=== PATIENT | female | born 1945 | race Caucasian/White ===

== ENCOUNTER → 2018-09-30 12:29 | Outpatient (CLI) | payer MEDICARE, OTHER, SELFPAY | PROVIDERS: PCP Family Medicine; Visit Provider Internal Medicine | DX: I10 Essential (primary) hypertension (principal); R06.09 Other forms of dyspnea; R94.31 Abnormal electrocardiogram [ECG] [EKG]; Z95.0 Presence of cardiac pacemaker | CPT/HCPCS: 93306 ==

== ENCOUNTER → 2019-10-18 09:46 | Outpatient (CLI) | payer MEDICARE, OTHER, SELFPAY ==
--- NOTE | 2019-10-18 09:48 | CA_ITS ---
APPROVED REPORT EXAM: Comprehensive 2D, Doppler, and color-flow Echocardiogram Ginning Operator: Trinidad Barraza RVT Ht: 5 ft 4 in Wt: 141lbs BSA: 1.69 BP: 130/67 mmHg Indications: SOA,HTN,HLD,PACER,A-FIB 2D Dimensions LVOT 1.87 cm (M/F) 1.5-2.5 M-Mode Dimensions RVDd 2.83 cm (0.9-2.6) LVDd 4.57 cm (3.5-5.7) LVDs 2.90 cm (3.5-5.7) IVSd 0.93 cm (0.6-1.1) PWd 0.74 cm (0.6-1.1) EF (Teich) 66.40% FS 36.50% EDV (Teich) 95.90 mL ESV (Teich) 32.20 mL LV Diastology E/A Ratio 1.07 Mitral Valve MV A Velocity 35.00 (40-130 cm/s) Left Ventricle Left atrium is mildly enlarged, left ventricle is normal size, mild concentric left ventricular hypertrophy, visually estimated ejection fraction approximately 40%, there is abnormal septal motion. Diastolic parameters are inconclusive. Right Ventricle Right atrium and right ventricular mildly enlarged with normal contractility. There is a pacemaker lead seen right atrium and right ventricle. Aortic Valve Aortic valve is thickened and calcified leaflet continue to display good mobility, there is no aortic stenosis, there is mild aortic insufficiency. Mitral Valve Mitral valve leaflets are minimally thickened, there is no mitral stenosis, there is mild mitral regurgitation. Tricuspid Valve Tricuspid valve is grossly normal, there is mild tricuspid regurgitation. Pulmonic Valve Pulmonic valve is poorly visualized. Great Vessels Aortic root is normal size. No significant pericardial effusion noted. Conclusion 1. Biatrial enlargement, normal left ventricular size, mild concentric left ventricular hypertrophy, visually estimated ejection fraction of 40%, there is abnormal septal motion, diastolic parameters are inconclusive. 2. Mildly enlarged right ventricle with normal contractility. 3. Thickened and calcified aortic valve without aortic stenosis, there is mild aortic insufficiency. 4. Mild mitral and tricuspid regurgitation. 5. No significant pericardial effusion noted. Electronically signed by : Braden Baird, 10/18/2019 20:15:26
== END ==
PROVIDERS: PCP Family Medicine; Visit Provider Internal Medicine
DX: E78.5 Hyperlipidemia, unspecified (principal); I10 Essential (primary) hypertension; I48.91 Unspecified atrial fibrillation; R06.00 Dyspnea, unspecified; R42 Dizziness and giddiness; Z95.0 Presence of cardiac pacemaker
CPT/HCPCS: 93306

== ENCOUNTER → 2019-11-15 08:10 | Outpatient (CLI) | payer MEDICARE, OTHER, SELFPAY ==
--- NOTE | 2019-11-15 08:11 | CA_ITS ---
APPROVED REPORT EXAM: Limited 2D Echocardiogram Senior Science Consultant: Trinidad Barraza RVT Ht: 5 ft 4 in Wt: 140lbs BSA: 1.68 BP: 128/56 mmHg Indications: EF check EF of 40% on 10/18/19 Pt had pacer changed to a bi-venticular pacer 2 weeks ago. Hypertension,CM, HLD 2D Dimensions LVOT 2.35 cm (M/F) 1.5-2.5 M-Mode Dimensions RVDd 0.76 cm (0.9-2.6) LVDd 4.55 cm (3.5-5.7) LVDs 3.37 cm (3.5-5.7) IVSd 0.79 cm (0.6-1.1) PWd 0.84 cm (0.6-1.1) EF (Teich) 51.10% FS 25.90% EDV (Teich) 94.90 mL ESV (Teich) 46.40 mL Left Ventricle Left atrium is mildly enlarged, left ventricle is normal size, mild concentric left ventricular hypertrophy, visually estimated ejection fraction approximately 50%, with no regional wall motion abnormality. There is abnormal septal motion. Right Ventricle Right atrium right ventricular mildly enlarged with normal contractility there is a pacemaker lead seen right atrium and right ventricle. Aortic Valve Aortic valve is minimally thickened and fibrosed. Mitral Valve Mitral valve is grossly normal. Tricuspid Valve Tricuspid valve is grossly normal. Pulmonic Valve Pulmonic valve is poorly visualized. Great Vessels Aortic root is normal size. Pericardium No significant pericardial effusion noted. Conclusion 1. Limited 2D echocardiogram was performed. 2. Normal left ventricular size, visually estimated ejection fraction approximately 50% with abnormal septal motion, there is mild concentric left ventricular hypertrophy seen. 3. Mildly enlarged right ventricle with normal contractility. 4. No significant pericardial effusion noted. Electronically signed by : Braden Baird, 11/16/2019 06:04:25
== END ==
PROVIDERS: PCP Family Medicine; Visit Provider Internal Medicine
DX: R07.9 Chest pain, unspecified (principal)
CPT/HCPCS: 93308

== ENCOUNTER → 2020-02-13 10:33 | Outpatient (CLI) | payer MEDICARE, OTHER, SELFPAY ==
--- NOTE | 2020-02-13 10:34 | XR_ITS ---
PROCEDURE: XR CHEST 2V CLINICAL HISTORY: chest pain Heart disease, chest pain COMPARISON: No exams were available for comparison FINDINGS: The cardiomediastinal silhouette and pulmonary vascularity are within normal limits. Biventricular and right atrial pacemaker leads are present. Minimal atelectatic changes present in the left lung base. Levoscoliosis of the thoracolumbar spine IMPRESSION: Pacemaker present. Minimal left basilar atelectasis Dictated by: Amando Gutierrez MD 02/13/2020 11:50 Electronically signed by Amando Gutierrez MD in [facility] 02/13/2020 11:50
--- NOTE | 2020-02-13 10:34 | CA_ITS ---
APPROVED REPORT EXAM: Comprehensive 2D, Doppler, and color-flow Echocardiogram Tobacco Baler: Cami Paulino CRT Ht: 5 ft 4 in Wt: 140lbs BSA: 1.68 BP: 132/64 mmHg Indications: HTN, HLD, CM, EF CHECK and PACER LEAD CHECK M-Mode Dimensions RVDd 2.99 cm (0.9-2.6) LVDd 4.40 cm (3.5-5.7) LVDs 3.56 cm (3.5-5.7) IVSd 1.62 cm (0.6-1.1) PWd 0.82 cm (0.6-1.1) EF (Teich) 39.60% FS 19.10% EDV (Teich) 87.70 mL ESV (Teich) 53.00 mL Left Ventricle Left atrium is mildly enlarged, left ventricle is normal size, mild concentric left ventricular hypertrophy, visually estimated ejection fraction 55% with no regional wall motion abnormality. Diastolic parameters are inconclusive. Right Ventricle Right atrium and right ventricle mildly enlarged with normal contractility, pacemaker lead seen right atrium and right ventricle. Aortic Valve Aortic valve is thickened and calcified leaflet continue to display good mobility, there is no obvious aortic stenosis or aortic insufficiency. Mitral Valve Mitral valve is grossly normal, there is mild mitral regurgitation. Tricuspid Valve Tricuspid valve grossly normal, there is mild tricuspid regurgitation, calculated right ventricular systolic pressure is 34 mmHg. Pulmonic Valve Pulmonic valve is poorly visualized. Great Vessels Aortic root is normal size. Pericardium No significant pericardial effusion noted. Conclusion 1. Normal left ventricular size, preserved left ventricular systolic function, visually estimated ejection fraction 55% with no regional wall motion abnormality, diastolic parameters are inconclusive. 2. Mildly enlarged right ventricle with normal contractility, pacemaker lead seen the right atrium and right ventricle. 3. Mild mitral and tricuspid regurgitation. Calculated right ventricular systolic pressure 34 mmHg. 4. No significant pericardial effusion noted. Electronically signed by : Braden Baird, 02/13/2020 19:48:15
== END ==
PROVIDERS: PCP Family Medicine; Visit Provider Nurse Practitioner Family
DX: E78.2 Mixed hyperlipidemia (principal); I10 Essential (primary) hypertension; I48.0 Paroxysmal atrial fibrillation; R06.00 Dyspnea, unspecified; R07.9 Chest pain, unspecified; Z95.0 Presence of cardiac pacemaker
CPT/HCPCS: 71046; 93308

== ENCOUNTER → 2020-10-24 10:11 | Outpatient (CLI) | payer MEDICARE, OTHER, SELFPAY ==
--- NOTE | 2020-10-24 10:12 | CA_ITS ---
APPROVED REPORT EXAM: Comprehensive 2D, Doppler, and color-flow Echocardiogram Wheel Worker: Maggi Jones, RT(R) Ht: 5 ft 5 in Wt: 142lbs BSA: 1.71 BP: 132/65 mmHg Indications: SOB, Pacemaker, CP, hx of bradycardia 2D Dimensions LVOT 1.80 cm (M/F) 1.5-2.5 M-Mode Dimensions RVDd 3.04 cm (0.9-2.6) LA Diam 3.74 cm (1.9-4.0) LVDd 4.25 cm (3.5-5.7) Ao Diam 2.63 cm (2.0-3.7) LVDs 3.38 cm (3.5-5.7) IVSd 1.02 cm (0.6-1.1) PWd 0.87 cm (0.6-1.1) EF (Teich) 42.10% FS 20.50% EDV (Teich) 80.80 mL ESV (Teich) 46.80 mL LV Diastology E Decel Time 213.00 (160-240 msec) E/A Ratio 0.82 MED E' 5.90 (< 7 cm/sec) E'/MED E' Ratio 8.44 (>14) LAT E' 6.00 (<10 cm/sec) E/LAT E' Ratio 8.30 (>14) Aortic Valve AI PHT 703.00 ms Mitral Valve MV E Max Henry. 50.00 (40-130 cm/s) MV A Velocity 61.00 (40-130 cm/s) E/A Ratio 0.82 MV Decel. Time 213.00 (160-240 ms) MV PHT 62.00 ms Tricuspid Valve TR P. Velocity 245.00 cm/s RAP Estimate 10.00 mmHg RVSP 34.00 mmHg Left Ventricle Left atrium is mildly enlarged, left ventricle is normal size, mild concentric left ventricular hypertrophy, visually estimated ejection fraction 55% with no regional wall motion abnormality, grade 1 diastolic dysfunction seen without tissue Doppler evidence of raise left atrial pressure. Right Ventricle Right atrium and right ventricle are mildly enlarged with normal contractility, there is a pacemaker lead seen right atrium and right ventricle. Aortic Valve Aortic valve is minimally thickened and calcified, there is no aortic stenosis, there is trace aortic insufficiency. Mitral Valve Mitral valve is grossly normal, there is mild mitral regurgitation. Tricuspid Valve Tricuspid valve is grossly normal, there is trace tricuspid regurgitation. Calculated right ventricular systolic pressure 34 mmHg. Pulmonic Valve Pulmonic valve is poorly visualized. Great Vessels Aortic root is normal size. Pericardium No significant pericardial effusion noted. Conclusion 1. Mild biatrial enlargement, normal left ventricular size, mild concentric left ventricular hypertrophy, visually estimated ejection fraction 55% with no obvious regional wall motion abnormality, endocardial surfaces are somewhat poorly visualized Grade 1 diastolic dysfunction seen without tissue Doppler evidence of raise left atrial pressure. 2. Mildly enlarged right ventricle with normal contractility. 3. Thickened and calcified aortic valve without aortic stenosis, there is trace aortic insufficiency. 4. Mild mitral and trace tricuspid regurgitation, calculated right ventricular systolic pressure 34 mmHg. 5. No significant pericardial effusion noted. Electronically signed by : Braden Baird, 10/25/2020 15:32:08
--- NOTE | 2020-10-24 12:10 | CT_ITS ---
PROCEDURE: CT CHEST WO CON CLINICAL INDICATION: neck swelling COMPARISON: No exams were available for comparison TECHNIQUE: Axial images obtained with sagittal and coronal reformats. All CT scans at the facility use one or more dose reduction, viz: automated exposure control, ma/kV adjustment per patient size (including targeted exams where dose is matched to indication, i.e. head), or iterative reconstruction technique. FINDINGS: HEART AND MEDIASTINAL STRUCTURES: Artifact is present from cardiac pacemaker device from the left subclavian approach. Vascular evaluation extremely limited without IV contrast. No evidence of aortic aneurysm. Coronary artery calcifications are present. No mediastinal or hilar mass is evident. No adenopathy. LUNGS AND PLEURAL SPACES: There are mild atelectatic changes in the left lower lobe medially. The calcified granuloma is present in the left upper lobe BONY STRUCTURES: Thoracic scoliosis convex right UPPER ABDOMEN: . there is a 3.3 x 1.8 cm cyst within the junction of the right left hepatic lobes. Hypodensity is present in the left hepatic lobe at 1.2 cm and may represent a cyst. Other smaller hypodensities are present as well. 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 ADDITIONAL FINDINGS: No other significant abnormalities. IMPRESSION: 1. No acute finding. No mediastinal or hilar mass. 2. Minimal atelectatic change left lower lobe 3. Hepatic cysts Dictated by: Amando Gutierrez MD 10/24/2020 13:36 Amando Gutierrez MD in [facility] 10/24/2020 13:36
--- NOTE | 2020-10-24 12:10 | XR_ITS ---
PROCEDURE: XR CHEST 2V CLINICAL HISTORY: neck swelling COMPARISON: CR XR CHEST 2V from 02/13/2020 FINDINGS: Normal heart size. There is a bipolar pacemaker from left subclavian approach with both right and left ventricular leads and right atrial lead. The lungs are clear without infiltrates, suspicious nodules, or pleural effusions. No acute bony abnormalities. IMPRESSION: Pacemaker in place, no acute finding Dictated by: Amando Gutierrez MD 10/24/2020 15:52 Amando Gutierrez MD in [facility] 10/24/2020 15:52
--- NOTE | 2020-10-24 12:26 | CA_ITS ---
APPROVED REPORT Left Upper Extremity Venous Study for DVT. Spent Grain Dryer: Maggi Jones RT(R) Indications Upper Extremity Edema: Left Upper Extremity Swelling: Left localized left neck fullness Vein Imaging IJV (L): Normal phasic flow is seen. Normal flow, augmentation and compression is seen. No evidence of Deep Vein Thrombosis. No abnormalities are demonstrated. SCV (L): Normal phasic flow is seen. Normal flow, augmentation and compression is seen. No evidence of Deep Vein Thrombosis. No abnormalities are demonstrated. Axillary (L): Normal phasic flow is seen. Normal flow, augmentation and compression is seen. No evidence of Deep Vein Thrombosis. No abnormalities are demonstrated. Brachial (L): Normal phasic flow is seen. Normal flow, augmentation and compression is seen. No evidence of Deep Vein Thrombosis. No abnormalities are demonstrated. Cephalic (L): Compressible Radial (L): Compressible Ulnar (L): Compressible Findings Duplex evaluation of the left upper extremity demonstrates no evidence of DVT or SVT. Conclusion Duplex evaluation of the left upper extremity demonstrates no evidence of DVT or SVT. Electronically signed by : Amando Gutierrez MD 10/24/2020 15:43:59
[2020-10-24 15:25] LABS: D-Dimer 0.96 ug/mL (0.0-0.5)
== END ==
PROVIDERS: Physician Assistant; PCP Family Medicine; Visit Provider Internal Medicine
DX: E78.5 Hyperlipidemia, unspecified (principal); I10 Essential (primary) hypertension; I48.91 Unspecified atrial fibrillation; R06.00 Dyspnea, unspecified; R07.9 Chest pain, unspecified; Z95.0 Presence of cardiac pacemaker; R22.1 Localized swelling, mass and lump, neck; M54.2 Cervicalgia
CPT/HCPCS: 36415; 71046; 71250; 85378; 93306; 93971

== ENCOUNTER 2020-10-25 14:14 | Day surgery (SDC) | payer MEDICARE, OTHER, SELFPAY ==
--- NOTE | 2020-10-25 | IR_ITS ---
APPROVED REPORT Patient Location: Outpatient Sales Representative Cash Registers: JACOB Ford RT (R) PROCEDURES Right heart catheterization Left heart catheterization Left ventriculogram Selective coronary angiogram Placement of intra-aortic balloon pump INDICATION Ventricular fibrillation, Sudden cardiac , Cardiogenic shock Informed consent was obtained prior to the procedure. COMPLICATIONS none Estimated Blood Loss: none ANGIOGRAPHIC RESULTS The left main artery Normal The left anterior descending artery Normal The circumflex artery Normal The right coronary artery Dominant normal The MADRID ventriculogram reveals Severely dilated ejection fraction 10 to 15% The left ventricular end-diastolic pressure 20 mmHg Right atrial pressure 15 mmHg Pulmonary artery pressure 35/25 Pulmonary occlusion pressure 20 mmHg Pulmonary saturation 29% IMPRESSION Normal coronary arteries Dilated ventricle with severely reduced ejection fraction Successful placement of intra-aortic balloon pump PLAN 1. Recommend patient be transferred to a tertiary care center for further treatment and evaluation. Patient's current situation remains dire while currently on Levophed amiodarone drip. 2. Supportive care Electronically signed by : Edwin Catherine, 10/26/2020 12:10:20
--- NOTE | 2020-10-25 09:15 | CT_ITS ---
PROCEDURE: CT ANGIO CHEST CLINCIAL INDICATION: Swelling of neck, possible venous occlusion COMPARISON: US CA VENOUS DOPPLER UE LT from 10/24/[address] CHEST WO CON from 10/24/2020 TECHNIQUE: IV Contrast: 70ML Isovue 370 Axial images obtained with sagittal and coronal reformats. All CT scans at the facility use one or more dose reduction, viz: automated exposure control, ma/kV adjustment per patient size (including targeted exams where dose is matched to indication, i.e. head), or iterative reconstruction technique. FINDINGS: There is a bipolar pacemaker present from left subclavian approach. This creates artifact in the region the subclavian vein. CT arteriography performed with delayed images in hopes of visualizing the venous structures. The aortic arch has an unremarkable appearance. No evidence of aortic dissection or aneurysm. No evidence of pulmonary embolus. The right subclavian artery has an unremarkable appearance. A normal left subclavian artery is not identified. There are collateral vessels in the left axillary region. The jugular veins have an unremarkable appearance. The left internal jugular vein is well opacified and there is good opacification of the left brachiocephalic vein which does not appear occluded or significantly narrowed. However, a normal left subclavian vein is not identified. There does appear to be collaterals in the left axillary region. Atelectatic changes are present in the left lower lobe. There are 3 hypodensities in the liver two in the left hepatic lobe and 1 in the right hepatic lobe inferiorly. Largest lesion is in the left hepatic lobe segment 8 measuring 3.5 by 1.9 cm consistent with a hepatic cyst. IMPRESSION: 1. 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 The left external jugular vein drains into 1 of these collaterals. 2. Atelectatic changes in the left lower lobe. 3. Hepatic cysts Dictated by: Amando Gutierrez MD 10/25/2020 13:03 Amando Gutierrez MD in [facility] 10/25/2020 13:03
--- NOTE | 2020-10-25 09:15 | CT_ITS ---
Procedure: CT ANGIO NECK CLINICAL HISTORY: neck swelling, pacer in situ, Eyelid and left-sided facial swelling. COMPARISON: CT CT ANGIO HEAD from 10/25/2020 TECHNIQUE: IV Contrast: 100ml Isovue 370 Axial images obtained with sagittal and coronal reformats. All CT scans at the facility use one or more dose reduction, viz: automated exposure control, ma/kV adjustment per patient size (including targeted exams where dose is matched to indication, i.e. head), or iterative reconstruction technique. FINDINGS: Artifact is present the subclavian placed pacemaker. CTA neck: The aortic arch has an unremarkable appearance. The right brachiocephalic artery is unremarkable. There is tortuosity of the right common carotid artery. The right internal carotid has an unremarkable appearance. Left common carotid has an unremarkable appearance other than tortuosity. No stenotic lesions evident of the internal carotid. There is a 1 cm long segment area of stenosis involving the proximal aspect of the left subclavian artery of approximately 40-50 percent with a small focal area of stenosis of approximately 60 percent. CTA head: No aneurysm, AVM, intracranial stenosis, or dissection is evident. Delayed images show no evidence of sinus thrombosis. No enhancing intracranial lesions are evident. No midline shift or mass effect. There is mild frontal atrophy with some encephalomalacia change in the left occipital lobe. No orbital mass. Sinuses have an unremarkable appearance. Multinodular goiter noted. Please see ultrasound for further description. IMPRESSION: 1. No evidence of aneurysm dissection or significant stenosis of the carotid or vertebral arteries. 2. No aneurysm AVM or intracranial occlusion or dissection. 3. 60 percent stenosis of the proximal aspect of the left subclavian artery. Dictated by: Amando Gutierrez MD 10/25/2020 12:47 Amando Gutierrez MD in [facility] 10/25/2020 12:47
--- NOTE | 2020-10-25 09:15 | US_ITS ---
PROCEDURE: US THYROID CLINICAL INDICATION: thyroid nodules COMPARISON: No exams were available for comparison FINDINGS: The right lobe measures 4.1 x 1.4 x 1.8 cm. The left lobe measures 4.1 x 1.6 x 1.9 cm. There are numerous nodules bilaterally too numerous to count. These are both cystic and solid. Largest nodule on the right is a complex cystic nodule at 8 mm in the lower pole. There are numerous nodules on the left with a complex cystic nodule in the mid polar region measuring 8 mm. A spongiform nodules in the upper pole at 8 mm. A cyst is present in the lower pole at 12 mm. A complex mixed nodules present in the lower pole at 8 mm. IMPRESSION: Multiple bilateral benign-appearing nodules as described above. Consider six-month follow-up to confirm short term stability Dictated by: Amando Gutierrez MD 10/25/2020 12:50 Amando Gutierrez MD in [facility] 10/25/2020 12:50
--- NOTE | 2020-10-25 09:48 | IR_ITS ---
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 COMPLICATIONS none Estimated Blood Loss: none TECHNIQUE An 18-gauge IV was placed in the left antecubital vein. 50 cc of contrast was injected under fluoroscopic guidance and then digital subtraction was performed to map out the venous drainage of the subclavian vein. At the end of the procedure the apparatus was removed the patient was transferred to the postop holding in stable condition for postoperative care ANGIOGRAPHIC RESULTS The left brachial artery is patent in the distal segment but occluded proximally. The collateral network then reconstitutes at the proximal left subclavian area adjacent to the left internal jugular vein. IMPRESSION Chronically occluded left subclavian vein PLAN 1. Continue medical management Addendum Dictated By: Edwin Catherine MD Addendum Signed By: Date/Time: Addendum Cosigned By: Date/Time: DD/DT: [id number] MTDD
[2020-10-25 10:06] LABS: Blood Urea Nitrogen 24 mg/dl (7-17); Estimated Glomerular Filt Rate 70 ml/min (>60); GFR (African American) 85 ML/MIN (>60)
[2020-10-25 13:16] VITALS: BMI 25.4
--- NOTE | 2020-10-25 13:34 | CT_ITS ---
PROCEDURE: CT SINUS WO CON CLINICAL HISTORY: left facial pain COMPARISON: CT CT ANGIO CHEST from 10/25/2020 TECHNIQUE: Axial images obtained with sagittal and coronal reformats. All CT scans at the facility use one or more dose reduction, viz: automated exposure control, ma/kV adjustment per patient size (including targeted exams where dose is matched to indication, i.e. head), or iterative reconstruction technique. FINDINGS: The paranasal sinuses have an unremarkable appearance. No mucosal thickening or sinus air-fluid level. The frontal, ethmoid, and maxillary sinuses are unremarkable as are the sphenoid sinuses. No mastoid effusion is evident. There is moderate leftward nasal septal deviation. The ostiomeatal units are patent. There is mild bilateral TMJ arthropathy left greater than right. IMPRESSION: 1. Leftward nasal septal deviation otherwise negative CT of the sinuses. 2. Mild bilateral TMJ arthropathy Dictated by: Amando Gutierrez MD 10/25/2020 15:04 Amando Gutierrez MD in [facility] 10/25/2020 15:04
[2020-10-25 14:21] VITALS: BP 127/71; PULSE 97; RESP 20; TEMP 36.6; O2SAT 98
[2020-10-25 14:48] VITALS: BP 115/68; O2SAT 96
[2020-10-25 14:56] LABS: Coronavirus 19 IgG Antibody Negative (Negative); Coronavirus 19 IgM Antibody Negative (Negative)
== END 2020-10-25 15:12 | disposition home or self-care (01) ==
LOC: CATHLAB 14:14
PROVIDERS: PCP Family Medicine; Visit Provider Internal Medicine
DX: I87.1 Compression of vein (principal); I82.B12 Acute embolism and thrombosis of left subclavian vein; R22.1 Localized swelling, mass and lump, neck; Z95.810 Presence of automatic (implantable) cardiac defibrillator; E04.2 Nontoxic multinodular goiter; R51.9 Headache, unspecified; I10 Essential (primary) hypertension; Z79.82 Long term (current) use of aspirin; Z79.899 Other long term (current) drug therapy
CPT/HCPCS: 36005; 36415; 70486; 70496; 70498; 71275; 75820; 76536; 82565; 84520; 86328; Q9967

== ENCOUNTER → 2020-10-30 10:57 | Outpatient (CLI) | payer MEDICARE, OTHER, SELFPAY ==
[2020-10-30 12:00] LABS: Basophils % 0.4 % (0.1-2.0); Eosinophils # 0.2 K/mm3 (0.0-0.4); Eosinophils % 2.5 % (0.1-12.0); Hematocrit 43.4 % (37.0-47.0); Hemoglobin 14.6 g/dL (12.2-16.2); Lymphocytes # 1.4 K/mm3 (0.7-4.5); Lymphocytes % 22.5 % (10-50); Mean Corpuscular HGB Conc 33.6 g/dL (31.8-35.4); Mean Corpuscular Hemoglobin 30.9 pg (27.0-31.2); Mean Corpuscular Volume 91.9 fl (81-99); Mean Platelet Volume 7.3 fl (7.4-10.4); Monocytes # 0.3 K/mm3 (0.1-1.0); Monocytes % 4.6 % (1.7-9.3); Neutrophils # 4.3 K/mm3 (1.8-7.8); Neutrophils % 70.1 % (37.0-80.0); Platelet Count 316 K/mm3 (142-424); Red Blood Count 4.73 M/mm3 (4.20-5.40); Red Cell Distribution Width 13.9 % (11.5-17.5); White Blood Count 6.1 K/mm3 (4.8-10.8)
[2020-10-30 12:24] LABS: Activated Partial Thrombo Time 22.8 seconds (23.6-34.0); INR 0.92 (0.9-1.1); Prothrombin Time 10.3 seconds (9.4-11.8)
[2020-10-30 12:38] LABS: Erythrocyte Sedimentation Rate 14 mm/hr (0-30)
[2020-10-30 12:41] LABS: Alanine Aminotransferase 19 U/L (12-78); Albumin Level 4.2 g/dl (3.5-5.0); Albumin/Globulin Ratio 1.6 (1.1-1.8); Alkaline Phosphatase 65 U/L (38-126); Anion Gap 11.3 mEq/L (5-15); Aspartate Amino Transferase 28 U/L (14-36); Bilirubin,Total 0.7 mg/dl (0.2-1.3); Blood Urea Nitrogen 18 mg/dl (7-17); Calcium 9.9 mg/dl (8.4-10.2); Carbon Dioxide 31 mmol/L (22.0-30.0); Chloride 100 mmol/L (98-107); Estimated Glomerular Filt Rate 70 ml/min (>60); GFR (African American) 85 ML/MIN (>60); Globulin 2.7 g/dL (1.3-3.2); Glucose 93 mg/dl (74-100); Potassium 4.3 mmoL/L (3.5-5.1); Sodium 138 mmol/L (136-145); Total Protein,Serum 6.9 g/dl (6.3-8.2); Uric Acid 4.5 mg/dl (2.5-6.2)
[2020-10-30 12:51] LABS: C-Reactive Protein 1.1 mg/L (0-4)
[2020-10-30 12:55] LABS: Free T4 (Free Thyroxine) 1.14 ng/dl (0.78-2.19)
[2020-10-30 13:09] LABS: Thyroid Stimulating Hormone 0.99 uIU/mL (0.465-4.68)
[2020-10-30 14:44] LABS: Blood Urea Nitrogen 18 mg/dl (7-17); Estimated Glomerular Filt Rate 70 ml/min (>60); GFR (African American) 85 ML/MIN (>60)
[2020-10-31 11:18] LABS: Thyroid Peroxidase Antibodies <9 IU/mL (0-34)
[2020-10-31 14:53] LABS: Anti-Centromere B Antibodies <0.2 AI (0.0-0.9); Anti-Jo-1 <0.2 AI (0.0-0.9); Anti-Smith Antibody <0.2 AI (0.0-0.9); Antichromatin Antibodies <0.2 AI (0.0-0.9); Antiscleroderma-70 Antibodies <0.2 AI (0.0-0.9); RA Latex Turbid. <10.0 IU/mL (0.0-13.9); RNP Antibodies <0.2 AI (0.0-0.9); Sjogren's Anti-SS-A <0.2 AI (0.0-0.9); Sjogren's Anti-SS-B <0.2 AI (0.0-0.9)
[2020-10-31 15:43] LABS: Anti-DNA (DS) Ab Qn 3 IU/mL (0-9); Anti-DNA (DS) Ab Qn 4 IU/mL (0-9); RA Latex Turbid. <10.0 IU/mL (0.0-13.9)
[2020-10-31 15:43] LABS: Triiodothyronine (T3) Free 3.3 pg/mL (2.0-4.4)
[2020-11-01 08:48] LABS: Thyroid Stimulating Immunoglob <0.10 IU/L (0.00-0.55)
[2020-11-01 16:28] LABS: Antinuclear Antibodies, IFA Negative (.)
[2020-11-01 18:49] LABS: Calcitonin <2.0 pg/mL (0.0-5.0)
[2020-11-18 05:16] LABS: APTT 22.8 sec (.); Anti-Cardiolipin Antibody IgG <10 GPL (.); Anti-Cardiolipin Antibody IgM 19 MPL (.); Beta-2 Glycoprotein I Ab, IgA <10 SAU (.); Beta-2 Glycoprotein I Ab, IgG <10 SGU (.); Beta-2 Glycoprotein I Ab, IgM <10 SMU (.); Hexagonal Phase Phospholipid 0 sec (.); INR 0.9 ratio (.); Prothrombin Time 9.9 sec (.); Thrombin Time 18.4 sec (.)
== END ==
PROVIDERS: Nurse Practitioner Family; Otolaryngology; Visit Provider Internal Medicine
DX: M32.9 Systemic lupus erythematosus, unspecified (principal); I48.0 Paroxysmal atrial fibrillation; I10 Essential (primary) hypertension; R22.1 Localized swelling, mass and lump, neck; Z95.0 Presence of cardiac pacemaker; E04.9 Nontoxic goiter, unspecified; R79.1 Abnormal coagulation profile
CPT/HCPCS: 80053; 82308; 82565; 84439; 84443; 84445; 84481; 84520; 84550; 85025; 85597; 85598; 85610; 85613; 85651; 85670; 85730; 86038; 86140; 86146; 86147; 86225; 86235; 86376; 86431

== ENCOUNTER → 2021-04-23 12:49 | Outpatient (CLI) | payer MEDICARE, OTHER, SELFPAY ==
--- NOTE | 2021-04-23 13:03 | US_ITS ---
PROCEDURE: US THYROID CLINICAL INDICATION: thyroid nodules COMPARISON: US US THYROID from 10/25/2020 FINDINGS: Right lobe: 4.2 x 1.8 x 1.4 centimeters Left lobe: 4.7 x 1.8 x 1.7 centimeters Isthmus: 0.3 centimeters Additional findings: Multiple colloid cysts and nodules are noted in both lobes of the thyroid gland. The largest of these on the right measures 0.8 centimeters and largest on the left measures 1.1 centimeters. These demonstrate no significant interval change compared to prior study. The vascularity of the thyroid gland is within normal limits. IMPRESSION: Multiple colloid cysts and nodules noted in both lobes of thyroid gland measuring up to 1.1 centimeters. Continued follow-up in 12 months is recommended. Dictated by: Pili Hare 04/23/2021 14:36 Pili Hare in [facility] 04/23/2021 14:36
== END ==
PROVIDERS: PCP Family Medicine; Visit Provider Internal Medicine
DX: E04.1 Nontoxic single thyroid nodule (principal)
CPT/HCPCS: 76536

== ENCOUNTER → 2021-10-22 09:12 | Outpatient (CLI) | payer MEDICARE, OTHER, SELFPAY ==
--- NOTE | 2021-10-22 09:16 | CA_ITS ---
APPROVED REPORT EXAM: Comprehensive 2D, Doppler, and color-flow Echocardiogram Industrial Locomotive Operator: Amie Castillo, RCS, RVS Ht: 5 ft 4 in Wt: 144lbs BSA: 1.70 BP: 119/67 mmHg Indications: Pacer, CAD, SOB, CP,Afib, Murmur 2D Dimensions LVDd 4.51 cm LVEF (Visual) 61.70 % LVDs 3.02 cm LA Volume 35.90 mL Aortic Root 2.83 cm LA Volume Index 21.10 mL/m2 (M/F) 16-34 Left Atrium 3.03 cm LVOT 2.03 cm (M/F) 1.5-2.5 M-Mode Dimensions RVDd 1.29 cm (0.9-2.6) LA Diam 3.81 cm (1.9-4.0) LVDd 4.83 cm (3.5-5.7) Ao Diam 2.71 cm (2.0-3.7) LVDs 2.85 cm (3.5-5.7) IVSd 0.95 cm (0.6-1.1) PWd 0.84 cm (0.6-1.1) EF (Teich) 70.10% EPSs 0.23 cm FS 39.60% EDV (Teich) 103.40 mL TAPSE 2.26 (<1.7) ESV (Teich) 30.90 mL LV Diastology E Decel Time 340.00 (160-240 msec) E/A Ratio 0.93 MED E' 7.50 (< 7 cm/sec) MED A' 10.40 cm/s E'/MED E' Ratio 7.01 (>14) LAT E' 8.10 (<10 cm/sec) LAT A' 14.00 cm/s E/LAT E' Ratio 6.49 (>14) Aortic Valve LVOT Max 87.00 (70-110 cm/s) LVOT VTI 17.95 cm AoV Peak Henry. 126.00 (50-130 cm/s) AI PHT 837.00 ms AO Peak GR. 6.30 mmHg AO Mean GR. 3.20 (<5 mmHg) AO VTI 27.53 (18-25 cm) ZAN (VTI) 2.11 (2.5-4.5 cm2) Mitral Valve MV A Velocity 57.00 (40-130 cm/s) E/A Ratio 0.93 MV Decel. Time 340.00 (160-240 ms) MV Mean Gr. 0.70 (<2mmHg) Pulmonary Valve PV Peak Velocity 71.00 (50-150 cm/s) IN End VMAX 182.00 cm/s Tricuspid Valve TR P. Velocity 262.00 cm/s RAP Estimate 10.00 mmHg RVSP 37.40 mmHg Left Ventricle Left atrium is mildly enlarged, left ventricle is normal size, mild concentric left ventricular hypertrophy, visually estimated ejection fraction 55% with no regional wall motion abnormality, grade 1 diastolic dysfunction seen without tissue Doppler evidence of raise left atrial pressure. Right Ventricle Right atrium and right ventricle are mildly enlarged with normal contractility, there is a pacemaker lead seen right atrium and right ventricle. Aortic Valve Aortic valve is minimally thickened and fibrosed, there is no aortic stenosis, there is trace aortic insufficiency. Mitral Valve Mitral valve leaflets are minimally thickened, there is mild mitral regurgitation. Tricuspid Valve Tricuspid valve grossly normal, there is mild tricuspid regurgitation, calculated right ventricular systolic pressure 37 mmHg. Pulmonic Valve Pulmonic valve is poorly visualized. Great Vessels Aortic root is normal size. Inferior vena cava is normal size with normal inspiratory collapse. Pericardium No significant pericardial effusion noted. Conclusion 1. Biatrial enlargement, normal left ventricular size, mild concentric left ventricular hypertrophy, visually estimated ejection fraction 55% with no regional wall motion abnormality, grade 1 diastolic dysfunction seen without tissue Doppler evidence of raise left atrial pressure. 2. Mildly enlarged right ventricle with normal contractility, there is pacemaker lead seen in right ventricle. 3. Thickened and calcified aortic valve without aortic stenosis, there is trace aortic insufficiency. 4. Mild mitral and tricuspid regurgitation, calculated right ventricular systolic pressure 37 mmHg. 5. No significant pericardial effusion noted. 6. Inferior vena cava is normal size with normal inspiratory collapse. Electronically signed by : Braden Baird MD 10/22/2021 19:51:20
== END ==
PROVIDERS: PCP Family Medicine; Visit Provider Internal Medicine
DX: I25.10 Atherosclerotic heart disease of native coronary artery without angina pectoris (principal)
CPT/HCPCS: 93306

== ENCOUNTER → 2022-09-19 09:56 | Outpatient (CLI) | payer MEDICARE, OTHER, SELFPAY ==
[2022-09-19 12:03] LABS: Basophils % 0.7 % (0.1-2.0); Eosinophils # 0.2 K/mm3 (0.0-0.4); Eosinophils % 2.8 % (0.1-12.0); Hematocrit 44.2 % (37.0-47.0); Hemoglobin 14.8 g/dL (12.2-16.2); Lymphocytes # 1.2 K/mm3 (0.7-4.5); Lymphocytes % 21.8 % (10-50); Mean Corpuscular HGB Conc 33.5 g/dL (31.8-35.4); Mean Corpuscular Hemoglobin 31.3 pg (27.0-31.2); Mean Corpuscular Volume 93.7 fl (81-99); Mean Platelet Volume 8.4 fl (7.4-10.4); Monocytes # 0.3 K/mm3 (0.1-1.0); Monocytes % 4.8 % (1.7-9.3); Neutrophils # 3.8 K/mm3 (1.8-7.8); Platelet Count 345 K/mm3 (142-424); Red Blood Count 4.72 M/mm3 (4.20-5.40); Red Cell Distribution Width 13.9 % (11.5-17.5); White Blood Count 5.4 K/mm3 (4.8-10.8)
[2022-09-19 12:32] LABS: Alanine Aminotransferase 29 U/L (12-78); Albumin Level 4.4 g/dl (3.5-5.0); Alkaline Phosphatase 89 U/L (38-126); Anion Gap 12.3 mEq/L (5-15); Aspartate Amino Transferase 37 U/L (14-36); Bilirubin,Indirect 0.5 mg/dL (0.0-0.9); Bilirubin,Total 0.5 mg/dl (0.2-1.3); Bilirubin,Unconjugated 0.5 mg/dL (0.0-1.1); Blood Urea Nitrogen 19 mg/dl (7-17); Calcium 9.7 mg/dl (8.4-10.2); Carbon Dioxide 30 mmol/L (22.0-30.0); Chloride 103 mmol/L (98-107); Cholesterol 238 mg/dl (140-200); Creatine Kinase 76 U/L (30-135); Estimated Glomerular Filt Rate 70 ml/min (>60); GFR (African American) 85 ML/MIN (>60); Glucose 93 mg/dl (74-100); HDL Cholesterol 34 mg/dl (40-60); Potassium 4.3 mmoL/L (3.5-5.1); Sodium 141 mmol/L (136-145); Total Protein,Serum 6.9 g/dl (6.3-8.2); Triglycerides 312 mg/dl (30-150); VLDL Cholesterol 62 mg/dL (0-40)
[2022-09-19 12:44] LABS: C-Reactive Protein 1.6 mg/L (0-4); Erythrocyte Sedimentation Rate 12 mm/hr (0-30)
[2022-09-19 13:03] LABS: Thyroid Stimulating Hormone 0.72 uIU/mL (0.465-4.68)
[2022-10-01 10:10] LABS: 1,25 Dihydroxy Vitamin D 41 pg/mL (.); 1,25-Dihydroxy, Vitamin D-2 <10 pg/mL (.); 1,25-Dihydroxy, Vitamin D-3 41 pg/mL (.)
== END ==
PROVIDERS: PCP Family Medicine; Visit Provider Internal Medicine
DX: I48.0 Paroxysmal atrial fibrillation (principal); I63.9 Cerebral infarction, unspecified; I11.9 Hypertensive heart disease without heart failure; E11.9 Type 2 diabetes mellitus without complications; R06.00 Dyspnea, unspecified
CPT/HCPCS: 36415; 80048; 80061; 80076; 82550; 82652; 84443; 85025; 85651; 86140

== ENCOUNTER → 2022-10-28 10:13 | Outpatient (CLI) | payer MEDICARE, OTHER, SELFPAY ==
--- NOTE | 2022-10-28 | CA_ITS ---
APPROVED REPORT EXAM: Comprehensive 2D, Doppler, and color-flow Echocardiogram Aircraft Machinist: Amie Castillo, RAUL, RVS Ht: 5 ft 4 in Wt: 148lbs BSA: 1.72 BP: 132/64 mmHg Indications: HTN, PACER, AFIB, HLD 2D Dimensions Aortic Root 2.69 cm LA Volume 45.20 mL Left Atrium 3.01 cm LA Volume Index 25.70 mL/m2 (M/F) 16-34 LVOT 2.07 cm (M/F) 1.5-2.5 M-Mode Dimensions RVDd 2.82 cm (0.9-2.6) LA Diam 3.16 cm (1.9-4.0) LVDd 4.49 cm (3.5-5.7) Ao Diam 2.87 cm (2.0-3.7) LVDs 3.03 cm (3.5-5.7) IVSd 0.89 cm (0.6-1.1) PWd 1.03 cm (0.6-1.1) EF (Teich) 61.00% EPSs 0.29 cm FS 32.50% EDV (Teich) 92.00 mL TAPSE 1.75 (<1.7) ESV (Teich) 35.90 mL LV Diastology E Decel Time 183.00 (160-240 msec) E/A Ratio 0.84 MED E' 6.20 (< 7 cm/sec) MED A' 9.50 cm/s E'/MED E' Ratio 8.15 (>14) LAT E' 7.00 (<10 cm/sec) LAT A' 9.70 cm/s E/LAT E' Ratio 7.21 (>14) Aortic Valve LVOT Max 87.00 (70-110 cm/s) LVOT VTI 20.24 cm AoV Peak Henry. 105.00 (50-130 cm/s) AO Peak GR. 4.40 mmHg AO Mean GR. 2.30 (<5 mmHg) AO VTI 22.25 (18-25 cm) ZAN (VTI) 3.06 (2.5-4.5 cm2) Mitral Valve MV A Velocity 60.00 (40-130 cm/s) E/A Ratio 0.84 MV Decel. Time 183.00 (160-240 ms) MV PHT 97.00 ms Pulmonary Valve PV Peak Velocity 81.00 (50-150 cm/s) DC End VMAX 171.00 cm/s Tricuspid Valve TR P. Velocity 236.00 cm/s RAP Estimate 10.00 mmHg RVSP 32.40 mmHg Left Ventricle Left atrium is mildly enlarged, left ventricle is normal size mild concentric left ventricular hypertrophy, estimated ejection fraction 55% with no regional wall motion abnormality, grade 1 diastolic dysfunction seen without tissue Doppler evidence of raise left atrial pressure. Right Ventricle Right atrium and right ventricle are mildly enlarged with normal contractility. Aortic Valve Aortic valve is minimally thickened and calcified without aortic stenosis, there is mild aortic insufficiency. Mitral Valve Mitral valve is grossly normal, there is mild mitral regurgitation. Tricuspid Valve Tricuspid valve is grossly normal, there is mild tricuspid regurgitation, calculated right ventricular systolic pressure is 32 mmHg. Pulmonic Valve Pulmonic valve is poorly visualized. Great Vessels Aortic root is normal size. Inferior vena cava is poorly visualized. Pericardium No significant pericardial effusion noted. Conclusion 1. Mild biatrial enlargement, normal left ventricular size, mild concentric left ventricular hypertrophy, estimated ejection fraction 55% with no regional wall motion abnormality, grade 1 diastolic dysfunction seen without tissue Doppler evidence of raise left atrial pressure. 2. Mildly enlarged right ventricle with normal contractility, pacemaker leads in the right ventricle. 3. Mild aortic, mild mitral and tricuspid regurgitation, calculated right ventricular systolic pressure 32 mmHg. 4. No significant pericardial effusion noted. 5. Inferior vena cava is poorly visualized. Electronically signed by : Braden Baird MD 10/29/2022 06:27:14
--- NOTE | 2022-10-28 | CA_ITS ---
FINAL REPORT TECHNIQUE: Graded compression, spectral analysis and ultrasound images of the venous system of the left upper extremity were obtained. CLINICAL HISTORY: .PREVIOU SVT LT MEDIAL FOREARM/ DVT OF LT ARM POST PACER. FINDINGS: The jugular vein, subclavian vein, axillary vein, brachial vein, cephalic vein and basilic venous system are normal, fully compressible and demonstrate no evidence of thrombosis. IMPRESSION: No evidence of thrombosis of the venous system of the left upper extremity. Reviewed, Interpreted and Dictated by Zeferino Campbell MD Transcribed by Shalonda Mcelroy Authenticated and [facility]
[2022-10-28 10:45] LABS: Basophils # 0.1 K/mm3 (0-0.2); Basophils % 1.1 % (0.1-2.0); Eosinophils # 0.1 K/mm3 (0.0-0.4); Eosinophils % 1.5 % (0.1-12.0); Hematocrit 43.4 % (37.0-47.0); Hemoglobin 14.8 g/dL (12.2-16.2); Lymphocytes # 1.2 K/mm3 (0.7-4.5); Lymphocytes % 23.7 % (10-50); Mean Corpuscular Hemoglobin 31.9 pg (27.0-31.2); Mean Corpuscular Volume 93.8 fl (81-99); Mean Platelet Volume 7.7 fl (7.4-10.4); Monocytes # 0.2 K/mm3 (0.1-1.0); Neutrophils # 3.6 K/mm3 (1.8-7.8); Neutrophils % 70.8 % (37.0-80.0); Platelet Count 333 K/mm3 (142-424); Red Blood Count 4.62 M/mm3 (4.20-5.40); Red Cell Distribution Width 13.5 % (11.5-17.5); White Blood Count 5.1 K/mm3 (4.8-10.8)
[2022-10-28 11:27] LABS: Alanine Aminotransferase 24 U/L (12-78); Albumin Level 4.3 g/dl (3.5-5.0); Alkaline Phosphatase 66 U/L (38-126); Anion Gap 11.3 mEq/L (5-15); Aspartate Amino Transferase 32 U/L (14-36); Bilirubin,Direct 0.1 mg/dl (0.0-0.4); Bilirubin,Indirect 0.6 mg/dL (0.0-0.9); Bilirubin,Total 0.7 mg/dl (0.2-1.3); Bilirubin,Unconjugated 0.6 mg/dL (0.0-1.1); Blood Urea Nitrogen 16 mg/dl (7-17); Calcium 9.1 mg/dl (8.4-10.2); Carbon Dioxide 30 mmol/L (22.0-30.0); Chloride 105 mmol/L (98-107); Chol/HDL Ratio 5.6 (1-3.5); Cholesterol 206 mg/dl (140-200); Estimated Glomerular Filt Rate 61 ml/min (>60); GFR (African American) 74 ML/MIN (>60); Glucose 96 mg/dl (74-100); HDL Cholesterol 37 mg/dl (40-60); Potassium 4.3 mmoL/L (3.5-5.1); Sodium 142 mmol/L (136-145); Total Protein,Serum 6.9 g/dl (6.3-8.2); Triglycerides 189 mg/dl (30-150); VLDL Cholesterol 38 mg/dL (0-40)
[2022-10-28 11:39] LABS: Direct LDL Cholesterol 99.94 mg/dL (100-129)
[2022-10-28 11:44] LABS: Free T4 (Free Thyroxine) 1.19 ng/dl (0.78-2.19)
[2022-10-28 11:59] LABS: Thyroid Stimulating Hormone 0.55 uIU/mL (0.465-4.68)
[2022-11-10 18:08] LABS: 1,25 Dihydroxy Vitamin D 60 pg/mL (.); 1,25-Dihydroxy, Vitamin D-2 <10 pg/mL (.); 1,25-Dihydroxy, Vitamin D-3 60 pg/mL (.)
== END ==
PROVIDERS: PCP Family Medicine; Visit Provider Internal Medicine
DX: E04.1 Nontoxic single thyroid nodule (principal); E78.2 Mixed hyperlipidemia; I10 Essential (primary) hypertension; I48.0 Paroxysmal atrial fibrillation; R06.00 Dyspnea, unspecified; Z95.0 Presence of cardiac pacemaker; I11.9 Hypertensive heart disease without heart failure; E11.9 Type 2 diabetes mellitus without complications; I63.9 Cerebral infarction, unspecified; M79.602 Pain in left arm; R06.02 Shortness of breath; Z86.718 Personal history of other venous thrombosis and embolism
CPT/HCPCS: 36415; 80048; 80061; 80076; 82652; 84439; 84443; 85025; 93306; 93971

== ENCOUNTER → 2023-04-29 13:03 | Outpatient (CLI) | payer MEDICARE, OTHER, SELFPAY ==
[2023-04-29 14:37] LABS: Vitamin B12 879 pg/mL (239-931)
== END ==
PROVIDERS: PCP Family Medicine; Visit Provider Internal Medicine
DX: E78.5 Hyperlipidemia, unspecified (principal); I10 Essential (primary) hypertension; I48.0 Paroxysmal atrial fibrillation; M79.602 Pain in left arm; Z86.718 Personal history of other venous thrombosis and embolism; Z95.0 Presence of cardiac pacemaker
CPT/HCPCS: 36415; 82607

== ENCOUNTER → 2023-06-22 09:35 | Outpatient (CLI) | payer MEDICARE, OTHER, SELFPAY ==
--- NOTE | 2023-06-22 09:46 | CA_ITS ---
FINAL REPORT TECHNIQUE: Graded compression, spectral analysis and ultrasound images of the venous system of the upper extremity were obtained. CLINICAL HISTORY: R/O SUBCLAVIN VEIN THROMBUS,HX OF DVT LUE,PT HAS PACER WITH LEFT SUBCLAVIAN APPROACH, LT NECK PAIN COMPARISON: None FINDINGS: The jugular vein, subclavian vein, axillary vein, brachial vein, cephalic vein and basilic venous system are fully compressible and demonstrate no evidence of thrombosis. IMPRESSION: No evidence of thrombosis of the venous system of the left upper extremity. Reviewed, Interpreted and Dictated by Ba Tran MD Transcribed by Sheeba Donato Authenticated and [facility]
[2023-06-22 10:57] LABS: Basophils % 0.2 % (0.1-2.0); Eosinophils % 0.1 % (0.1-12.0); Hematocrit 44.9 % (37.0-47.0); Hemoglobin 14.8 g/dL (12.2-16.2); Lymphocytes # 1.4 K/mm3 (0.7-4.5); Lymphocytes % 10.4 % (10-50); Mean Corpuscular Hemoglobin 30.7 pg (27.0-31.2); Mean Platelet Volume 8.4 fl (7.4-10.4); Monocytes # 0.5 K/mm3 (0.1-1.0); Monocytes % 3.7 % (1.7-9.3); Neutrophils # 11.4 K/mm3 (1.8-7.8); Neutrophils % 85.6 % (37.0-80.0); Platelet Count 360 K/mm3 (142-424); Red Blood Count 4.82 M/mm3 (4.20-5.40); Red Cell Distribution Width 13.7 % (11.5-17.5); White Blood Count 13.3 K/mm3 (4.8-10.8)
[2023-06-22 11:00] LABS: MANUAL DIFFERENTIAL MANUAL DIFFERENTIAL (MANUAL DIFF)
[2023-06-22 11:05] LABS: Anion Gap 12.2 mEq/L (5-15); Blood Urea Nitrogen 23 mg/dl (7-17); Calcium 9.5 mg/dl (8.4-10.2); Carbon Dioxide 30 mmol/L (22.0-30.0); Chloride 104 mmol/L (98-107); Estimated Glomerular Filt Rate 61 ml/min (>60); GFR (African American) 74 ML/MIN (>60); Glucose 86 mg/dl (74-100); Potassium 4.2 mmoL/L (3.5-5.1); Sodium 142 mmol/L (136-145)
[2023-06-22 11:11] LABS: D-Dimer 1.02 ug/mL (0.0-0.5)
--- NOTE | 2023-06-22 11:27 | CT_ITS ---
FINAL REPORT TECHNIQUE: Routine axial images were obtained from the lung apices to below the diaphragm following IV contrast administration. Individualized dose reduction techniques using automated exposure control or adjustment of the mA and/or kV according to the patient size were employed. CLINICAL HISTORY: looking for DVT in left subclavian artery, evaluate subclavian vein COMPARISON: 10/25/2020 FINDINGS: There is streak artifact at the left chest wall from pacemaker and pacemaker leads which into the left subclavian vein. Contrast injection was made via the patient's right arm. The left subclavian vein cannot be adequately assessed. Arterial structures are well opacified. No pulmonary embolism is seen. There is scarring/atelectasis at the lung bases. No acute lung disease is present. No pleural or pericardial effusion is seen. No adenopathy or mass lesion is present. Limited imaging of the upper abdomen demonstrates a benign-appearing cyst in the medial left hepatic lobe measuring 3.3 cm. IMPRESSION: No pulmonary embolism. No definite collaterals seen on the left. Contrast injection was made via the patient's right arm. Patency of the left subclavian vein cannot be adequately assessed. Reviewed, Interpreted and Dictated by Ba Tran MD Transcribed by Divine Trejo Authenticated and [facility]
[2023-06-22 11:46] LABS: Lymphocytes % 13 % (10-50); Monocytes % 4 % (2-9); Neutrophils % 81 % (42-76); Platelet Estimate Normal; RBC Morphology Normal; Total Cells Counted 100
--- NOTE | 2023-06-22 12:35 | HMH.ITSTN ---
I spoke with Dr. 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 He gave me a verbal order to give her 50mg Benadryl PO 1 hour prior to scan. Patient is aware of risk factors since she had a reaction to Contrast in the past but was ok to receive Contrast today. She signed our consent form. She felt normal post contrast and was sent home.
[2023-06-22 14:24] LABS: Erythrocyte Sedimentation Rate 15 mm/hr (0-30)
[2023-06-23 12:31] LABS: C-Reactive Protein 2.6 mg/L (0-4)
== END ==
PROVIDERS: Visit Provider Internal Medicine
DX: M79.602 Pain in left arm (principal); Z86.718 Personal history of other venous thrombosis and embolism; R06.02 Shortness of breath; R22.1 Localized swelling, mass and lump, neck
CPT/HCPCS: 36415; 71260; 80048; 82565; 84520; 85007; 85025; 85378; 85651; 86140; 93971; Q9967

== ENCOUNTER 2023-10-26 08:17 | Outpatient (CLI) | payer MEDICARE, OTHER, SELFPAY ==
--- NOTE | 2023-10-26 08:28 | XR_ITS ---
FINAL REPORT TECHNIQUE: Chest PA & Lateral CLINICAL HISTORY: dyspnea COMPARISON: 02/13/2020 FINDINGS: 2 views of the chest were performed. A left subclavian pacemaker is once again identified. Mild cardiomegaly is present. The mediastinum is within normal limits. There is no acute cardiopulmonary process. There are no pleural effusions. There is no pneumothorax. There is thoracolumbar scoliosis, convex to the patient's left of 38 degrees. IMPRESSION: No acute cardiopulmonary process. Mild cardiomegaly. Reviewed, Interpreted and Dictated by Ba Tran MD Transcribed by Tamra Galloway Authenticated and [facility]
== END 2023-10-26 23:59 ==
LOC: RAD 08:18
PROVIDERS: PCP Family Medicine; Visit Provider Internal Medicine
DX: R06.02 Shortness of breath (principal)
CPT/HCPCS: 71046

== ENCOUNTER 2023-11-03 08:38 | Outpatient (CLI) | payer MEDICARE, OTHER, SELFPAY ==
--- NOTE | 2023-11-03 08:39 | CT_ITS ---
FINAL REPORT CLINICAL HISTORY: RIGHT LOWER neck pain, COMPARISON: 04/23/2021 FINDINGS: CT NECK SOFT TISSUE WITH AND WITHOUT CONTRAST: The salivary glands are unremarkable in appearance. The larynx is normal. No vascular abnormality is identified. Small bilateral thyroid nodules are present, the largest in the posterior aspect of the left thyroid lobe measuring 12 mm in size. This cystic appearing nodule does not enhance after contrast administration, and probably represents a complex cyst. There are moderate diffuse degenerative changes in the cervical spine. No significant adenopathy is noted in the cervical region. IMPRESSION: No significant adenopathy is noted in the cervical soft tissues. Posterior left thyroid nodule, 12 mm in size, without enhancement this probably represents a complex cyst within a multinodular goiter. Reviewed, Interpreted and Dictated by Zeferino Campbell MD Transcribed by Tamra Galloway Authenticated and [facility]
--- NOTE | 2023-11-03 08:39 | CT_ITS ---
FINAL REPORT CLINICAL HISTORY: hx of pneumothorax. RIGHT UPPER LUNG PAIN, RIGHT LOWER NECK PAIN COMPARISON: 06/22/2023 FINDINGS: CT CHEST WITH AND WITHOUT CONTRAST: Mild dependent atelectasis is present in the lung bases. The lungs are otherwise unremarkable in appearance. Mild cardiomegaly is present. No evidence of pneumothorax or pleural effusion is seen. No significant adenopathy is noted in the lissett, mediastinum, or axillary regions. A pacemaker is present. Hepatic cysts are once again identified, stable since the prior CT. IMPRESSION: No pulmonary mass or adenopathy is identified. Reviewed, Interpreted and Dictated by Zeferino Campbell MD Transcribed by Tamra Galloway Authenticated and [facility]
[2023-11-03 09:07] LABS: Blood Urea Nitrogen 16 mg/dl (7-17); Estimated Glomerular Filt Rate 61 ml/min (>60); GFR (African American) 74 ML/MIN (>60)
[2023-11-03] MEDS: SODIUM CHLORIDE 0.9% 10ML SYR (RAD ONLY) 10 ML IV (11:37)
[2023-11-03] MEDS: IOPAMIDOL-370 (76%);100ML BOTTLE 100 ML IV (11:37)
== END 2023-11-03 23:59 ==
LOC: RAD 08:39
PROVIDERS: PCP Family Medicine; Visit Provider Internal Medicine
DX: E78.5 Hyperlipidemia, unspecified (principal); I10 Essential (primary) hypertension; I48.91 Unspecified atrial fibrillation; M54.2 Cervicalgia; Z86.718 Personal history of other venous thrombosis and embolism; Z87.09 Personal history of other diseases of the respiratory system; Z95.0 Presence of cardiac pacemaker; R42 Dizziness and giddiness
CPT/HCPCS: 36415; 70492; 71270; 82565; 84520; Q9967

== ENCOUNTER 2023-11-30 07:35 | Outpatient (CLI) | payer MEDICARE, OTHER, SELFPAY ==
--- NOTE | 2023-11-30 | CA_ITS ---
APPROVED REPORT EXAM: Comprehensive 2D, Doppler, and color-flow Echocardiogram Real Estate Investor: Blank Cali RDCS Ht: 5 ft 4 in Wt: 152lbs BSA: 1.74 BP: 130/86 mmHg Indications: HTN,PP M-Mode Dimensions RVDd 3.08 cm (0.9-2.6) LA Diam 3.46 cm (1.9-4.0) LVDd 4.99 cm (3.5-5.7) LVDs 3.55 cm (3.5-5.7) IVSd 0.70 cm (0.6-1.1) PWd 0.77 cm (0.6-1.1) EF (Teich) 55.30% FS 28.90% EDV (Teich) 117.70 mL ESV (Teich) 52.60 mL LV Diastology E Decel Time 197 (160-240 msec) E/A Ratio 0.8 Aortic Valve AI PHT 645.00 ms Mitral Valve MV E Max Henry. 47.0 (40-130 cm/s) MV A Velocity 61.0 (40-130 cm/s) E/A Ratio 0.77 MV PHT 58.0 ms Tricuspid Valve TR P. Velocity 242.00 cm/s RAP Estimate 10.00 mmHg RVSP 33.40 mmHg Left Ventricle The left ventricle is normal size. The left ventricular systolic function is normal. The left ventricular ejection fraction is within the normal range. There is normal left ventricular wall thickness. There is normal LV segmental wall motion. The left ventricular diastolic function is normal. LVEF is 55%. Right Ventricle The right ventricle is normal size. The right ventricular systolic function is normal. There is a device lead present in the right ventricle. Atria The left atrium size is normal. The right atrium size is normal. There is no Doppler evidence of interatrial shunt. Lipomatous hypertrophy of the interatrial septum is noted. Aortic Valve The aortic valve is mildly thickened. There is no aortic valvular stenosis. Mild aortic regurgitation. Mitral Valve The mitral valve is normal in structure. No evidence of mitral valve stenosis. Trace mitral regurgitation. Tricuspid Valve The tricuspid valve leaflets are thin and pliable. Mild tricuspid regurgitation. RVSP is 20-25 mmHg. Pulmonic Valve The pulmonary valve is normal in structure. Trace pulmonic regurgitation. Great Vessels The aortic root is normal in size. The ascending aorta is not well-visualized. IVC is normal in size and collapses >50% with inspiration. Pericardium There is no pericardial effusion. Other Information Study Quality: Fair Conclusion Normal biventricular systolic function. Mild AI, mild TR. RVSP 20-25 mmHg. Electronically signed by : Patricia Hallman MD 11/30/2023 11:09:02
== END 2023-11-30 23:59 ==
LOC: RT 07:36
PROVIDERS: PCP Family Medicine; Visit Provider Internal Medicine
DX: I10 Essential (primary) hypertension (principal); R94.31 Abnormal electrocardiogram [ECG] [EKG]
CPT/HCPCS: 93306

== ENCOUNTER 2023-12-08 15:14 | Outpatient (CLI) | payer MEDICARE, OTHER, SELFPAY ==
--- NOTE | 2023-12-08 15:19 | US_ITS ---
FINAL REPORT TECHNIQUE: Limited sonographic images of the thyroid were obtained. CLINICAL HISTORY: thyroid nodule FINDINGS: Multiple bilateral thyroid nodules are identified. The right lobe of the thyroid measures 4.2 x 1.7 x 1.5 cm. There is a solid, hypoechoic nodule measuring 4 x 4 x 3 mm consistent with TI-RADS category 3. There is a solid, isoechoic nodule measuring 6 x 6 x 4 mm consistent with TI-RADS category 3. There is a solid, hypoechoic nodule measuring 7 x 5 x 4 mm consistent with TI-RADS category 4. The left lobe of the thyroid measures 4.4 x 1.6 x 1.2 cm. There is a cystic, solid and isoechoic nodule in the left mid thyroid measuring 8 x 6 x 7 mm consistent with TI-RADS category 2. The isthmus measures 3 mm. No mass or nodule is identified. IMPRESSION: Multiple bilateral thyroid nodules. No follow-up is required. Reviewed, Interpreted and Dictated by Dennis Peck III, MD Transcribed by Jaycee Blanca Authenticated and [facility]
== END 2023-12-08 23:59 ==
LOC: RAD 15:15
PROVIDERS: PCP Family Medicine; Visit Provider Internal Medicine
DX: E04.1 Nontoxic single thyroid nodule (principal)
CPT/HCPCS: 76536

== ENCOUNTER 2023-12-16 10:25 | Outpatient (CLI) | payer MEDICARE, OTHER, SELFPAY ==
[2023-12-16 10:54] LABS: Basophils # 0.1 K/mm3 (0-0.2); Basophils % 1.5 % (0.1-2.0); Eosinophils # 0.2 K/mm3 (0.0-0.4); Eosinophils % 2.6 % (0.1-12.0); Hematocrit 45.4 % (37.0-47.0); Hemoglobin 14.9 g/dL (12.2-16.2); Lymphocytes # 1.4 K/mm3 (0.7-4.5); Lymphocytes % 23.2 % (10-50); Mean Corpuscular HGB Conc 32.7 g/dL (31.8-35.4); Mean Corpuscular Hemoglobin 31.8 pg (27.0-31.2); Mean Corpuscular Volume 97.3 fl (81-99); Mean Platelet Volume 7.3 fl (7.4-10.4); Monocytes # 0.3 K/mm3 (0.1-1.0); Monocytes % 4.4 % (1.7-9.3); Neutrophils % 68.3 % (37.0-80.0); Platelet Count 307 K/mm3 (142-424); Red Blood Count 4.67 M/mm3 (4.20-5.40); Red Cell Distribution Width 13.9 % (11.5-17.5); White Blood Count 5.9 K/mm3 (4.8-10.8)
[2023-12-16 11:25] LABS: Chloride 103 mmol/L (98-107); Potassium 4.2 mmoL/L (3.5-5.1); Sodium 139 mmol/L (136-145)
[2023-12-16 11:28] LABS: Alanine Aminotransferase 25 U/L (12-78); Albumin Level 4.2 g/dl (3.5-5.0); Albumin/Globulin Ratio 1.8 (1.1-1.8); Alkaline Phosphatase 73 U/L (38-126); Anion Gap 7.2 mEq/L (5-15); Aspartate Amino Transferase 34 U/L (14-36); Bilirubin,Total 0.7 mg/dl (0.2-1.3); Blood Urea Nitrogen 14 mg/dl (7-17); Calcium 9.4 mg/dl (8.4-10.2); Carbon Dioxide 33 mmol/L (22.0-30.0); Cholesterol 229 mg/dl (140-200); Estimated Glomerular Filt Rate 61 ml/min (>60); GFR (African American) 74 ML/MIN (>60); Globulin 2.3 g/dL (1.3-3.2); Glucose 98 mg/dl (74-100); Total Protein,Serum 6.5 g/dl (6.3-8.2); Triglycerides 291 mg/dl (30-150); VLDL Cholesterol 58 mg/dL (0-40)
[2023-12-16 11:29] LABS: Chol/HDL Ratio 6.9 (1-3.5); HDL Cholesterol 33 mg/dl (40-60)
[2023-12-16 11:39] LABS: Direct LDL Cholesterol 102.43 mg/dL (100-129)
[2023-12-16 11:57] LABS: Thyroid Stimulating Hormone 0.67 uIU/mL (0.465-4.68)
[2023-12-16 12:16] LABS: Vitamin B12 880 pg/mL (239-931)
[2023-12-16 16:14] LABS: Folate > 20.00 ng/mL
[2023-12-17 12:14] LABS: Rapid Plasma Reagin Ab Titer Non Reactive titer (NonRea<1:1)
== END 2023-12-16 23:59 ==
LOC: LAB 10:26
PROVIDERS: PCP Family Medicine; Visit Provider Nurse Practitioner Family
DX: E78.2 Mixed hyperlipidemia; R47.89 Other speech disturbances; G45.8 Other transient cerebral ischemic attacks and related syndromes
CPT/HCPCS: 36415; 80053; 80061; 82607; 82746; 84443; 85025; 86593

== ENCOUNTER 2023-12-18 13:58 | Outpatient (CLI) | payer MEDICARE, OTHER, SELFPAY | END 2023-12-18 23:59 | PROVIDERS: PCP Family Medicine; Visit Provider Nurse Practitioner Family | DX: R47.89 Other speech disturbances; E78.2 Mixed hyperlipidemia; I77.1 Stricture of artery; G45.8 Other transient cerebral ischemic attacks and related syndromes | CPT/HCPCS: 94762 ==

== ENCOUNTER 2024-01-12 12:41 | Outpatient (CLI) | payer MEDICARE, OTHER, SELFPAY ==
--- NOTE | 2024-01-12 12:47 | CT_ITS ---
FINAL REPORT TECHNIQUE: Thin section axial CT with IV contrast supplemented with multiplanar reconstruction under CT angiogram protocol. 3-D reconstructions were performed. This study was performed with techniques to keep radiation doses as low as reasonably achievable (ALARA). Individualized dose reduction techniques using automated exposure control or adjustment of mA and/or kV according to the patient's size were employed. CLINICAL HISTORY: TIA COMPARISON: None FINDINGS: The distal vertebral, basilar and distal internal carotid arteries have an unremarkable appearance. No aneurysm is seen. Major intracranial vessels are patent without significant stenosis. IMPRESSION: Unremarkable intracranial vessels without evidence of significant stenosis or aneurysm. Reviewed, Interpreted and Dictated by Dennis Peck III, MD Transcribed by Tamra Galloway Authenticated and [facility]
--- NOTE | 2024-01-12 12:47 | CT_ITS ---
FINAL REPORT CLINICAL HISTORY: PM not MRI compatible TIA COMPARISON: None FINDINGS: Axial images of the head were obtained without contrast. Coronal and sagittal reformatted images were also obtained. This study was performed with techniques to keep radiation doses as low as reasonably achievable (ALARA). Individualized dose reduction techniques using automated exposure control or adjustment of mA and/or kV according to the patient's size were employed. There is generalized age-appropriate atrophy. Periventricular low-attenuation areas are seen consistent with mild chronic ischemic changes. There is no evidence of intracranial hemorrhage or mass. There is no evidence of acute infarct. There is no evidence of shift of the midline structures. No skull abnormality is seen on the bone window images. IMPRESSION: Atrophy and mild periventricular chronic ischemic changes. No acute intracranial abnormality identified. Reviewed, Interpreted and Dictated by Dennis Peck III, MD Transcribed by Tamra Galloway Authenticated and [facility]
--- NOTE | 2024-01-12 12:47 | CT_ITS ---
FINAL REPORT TECHNIQUE: Thin-section axial CT with IV contrast supplemented with multi planar reconstruction under CT angiogram protocol was performed of the neck. This study was performed technique to keep radiation doses as low as reasonably achievable, (ALARA). NASCET criteria was utilized during interpretation. CLINICAL HISTORY: precontrast medication TIA COMPARISON: None FINDINGS: Aortic arch: Arch shows no significant narrowing. Great vessel origins are widely patent. Right carotid: No significant stenosis is seen at the cervical common or internal carotid artery. Left carotid: No significant stenosis is seen at the cervical common or internal carotid artery. Vertebrals: The vertebral arteries are codominant. No significant stenosis is present. IMPRESSION: No evidence of significant stenosis or major branch occlusion. Reviewed, Interpreted and Dictated by Dennis Peck III, MD Transcribed by Tamra Galloway Authenticated and [facility]
[2024-01-12] MEDS: IOPAMIDOL-370 (76%);100ML BOTTLE 100 ML IV (13:44)
[2024-01-12] MEDS: 0.9 % SODIUM CHLORIDE 50 ML VIAL IV (13:44)
[2024-01-12] MEDS: SODIUM CHLORIDE 0.9% 10ML SYR (RAD ONLY) 10 ML IV (13:44)
== END 2024-01-12 23:59 ==
LOC: RAD 12:42
PROVIDERS: PCP Family Medicine; Visit Provider Nurse Practitioner Family
DX: G45.9 Transient cerebral ischemic attack, unspecified (principal); R47.89 Other speech disturbances; E78.2 Mixed hyperlipidemia; I77.1 Stricture of artery
CPT/HCPCS: 70450; 70496; 70498; Q9967

== ENCOUNTER 2024-03-21 10:51 | Outpatient (CLI) | payer MEDICARE, OTHER, SELFPAY ==
[2024-03-21] MEDS: INCLISIRAN SODIUM 284 MG/1.5 ML SYRINGE SQ (11:03)
[2024-03-21 11:05] VITALS: BP 136/74; PULSE 73; RESP 18; TEMP 36.6; O2SAT 98
== END 2024-03-21 11:20 | disposition home or self-care (01) ==
LOC: INF 10:52
PROVIDERS: PCP Family Medicine; Visit Provider Internal Medicine
DX: E78.5 Hyperlipidemia, unspecified (principal)
CPT/HCPCS: 96372; J1306

== ENCOUNTER 2024-06-27 10:23 | Outpatient (CLI) | payer MEDICARE, OTHER, SELFPAY ==
[2024-06-27 10:39] VITALS: BP 112/51; PULSE 60; RESP 16; TEMP 36.3; O2SAT 99
[2024-06-27] MEDS: INCLISIRAN SODIUM 284 MG/1.5 ML SYRINGE SQ (10:39)
== END 2024-06-27 10:50 | disposition home or self-care (01) ==
LOC: INF 10:25
PROVIDERS: PCP Family Medicine; Visit Provider Internal Medicine
DX: E78.5 Hyperlipidemia, unspecified (principal)
CPT/HCPCS: 96372; J1306

== ENCOUNTER 2024-11-28 12:37 | Outpatient (CLI) | payer MEDICARE, OTHER, SELFPAY ==
--- NOTE | 2024-11-28 12:48 | CA_ITS ---
APPROVED REPORT EXAM: Comprehensive 2D, Doppler, and color-flow Echocardiogram Enterprise Systems Engineer: Blank Cali RDCS Ht: 5 ft 4 in Wt: 151lbs BSA: 1.74 BP: 123/62 mmHg Indications: DIZZINESS,SOA,EDEMA,PP M-Mode Dimensions RVDd 2.33 cm (0.9-2.6) LA Diam 3.91 cm (1.9-4.0) LVDd 5.18 cm (3.5-5.7) LVDs 3.29 cm (3.5-5.7) IVSd 0.68 cm (0.6-1.1) PWd 0.84 cm (0.6-1.1) EF (Teich) 65.90% FS 36.50% EDV (Teich) 128.40 mL ESV (Teich) 43.80 mL LV Diastology E Decel Time 150 (160-240 msec) E/A Ratio 3.3 Mitral Valve MV E Max Henry. 137.0 (40-130 cm/s) MV A Velocity 42.0 (40-130 cm/s) E/A Ratio 3.26 MV PHT 44.0 ms Tricuspid Valve TR P. Velocity 252.00 cm/s RAP Estimate 10.00 mmHg RVSP 35.40 mmHg Left Ventricle The left ventricle is normal size. The left ventricular systolic function is normal. The left ventricular ejection fraction is within the normal range. There is increased LV wall thickness. There is normal LV segmental wall motion. Diastolic function is indeterminate. LVEF is 55%. Right Ventricle The right ventricle is not well-visualized, but grossly appears mildly dilated with normal RV function. There is a device lead in the right ventricle. Atria Left atrium is mildly dilated. Right atrium is mildly dilated. There is no Doppler evidence of interatrial shunt. Aortic Valve The aortic valve is mildly thickened. Mild aortic regurgitation. There is no aortic valvular stenosis. Mitral Valve The mitral valve is normal in structure. No evidence of mitral valve stenosis. Trace mitral regurgitation. Tricuspid Valve Tricuspid valve is grossly normal in structure and function. Mild tricuspid regurgitation. RVSP is 25-30 mmHg. Pulmonic Valve The pulmonary valve is normal in structure. Mild pulmonic regurgitation. Great Vessels The aortic root is normal in size. IVC is normal in size and collapses >50% with inspiration. Pericardium There is no pericardial effusion. Other Information Study Quality: Fair Conclusion Normal LV systolic function. The RV is not well-visualized, but grossly appears mildly dilated with normal RV function. Mild biatrial dilation. Mild AI, mild TR, mild PI. Electronically signed by : Patricia Hallman MD 12/04/2024 01:05:49
== END 2024-11-28 23:59 | disposition home or self-care (01) ==
LOC: RT 12:39
PROVIDERS: PCP Internal Medicine; Visit Provider Internal Medicine
DX: I51.7 Cardiomegaly (principal); R42 Dizziness and giddiness; R06.02 Shortness of breath
CPT/HCPCS: 93306

== ENCOUNTER 2025-01-04 09:47 | Outpatient (CLI) | payer MEDICARE, OTHER, SELFPAY ==
[2025-01-04 11:22] LABS: Ferritin 110 ng/ml (11.1-264)
[2025-01-05 08:13] LABS: Alpha-1-Antitrypsin 130 mg/dL (101-187)
[2025-01-05 15:21] LABS: Actin (Smooth Muscle) Antibody 9 Units (0-19)
[2025-01-07 04:45] LABS: ALT (SGPT) P5P 40 IU/L (0-40); AST (SGOT) P5P 47 IU/L (0-40); Alpha 2-Macroglobulins, Qn 181 mg/dL (110-276); Apolipoprotein A-1 142 mg/dL (116-209); Bilirubin, Total 0.2 mg/dL (0.0-1.2); Cholesterol, Total 117 mg/dL (100-199); Fibrosis Score 0.24 (0.00-0.21); Fibrosis Stage F0-F1 (.); GGT 29 IU/L (0-60); Glucose 98 mg/dL (70-99); Haptoglobin 57 mg/dL (42-346); NASH Score 0.79 (0.00-0.25); Steatosis Score 0.64 (0.00-0.40); Triglycerides 162 mg/dL (0-149)
== END 2025-01-04 23:59 | disposition home or self-care (01) ==
LOC: LAB 09:58
PROVIDERS: PCP Internal Medicine; Visit Provider Internal Medicine Gastroenterology
DX: R74.01 Elevation of levels of liver transaminase levels (principal); K76.0 Fatty (change of) liver, not elsewhere classified; E88.1 Lipodystrophy, not elsewhere classified
CPT/HCPCS: 36415; 82103; 82172; 82247; 82465; 82728; 82947; 82977; 83010; 83883; 84450; 84460; 84478; 86255

== ENCOUNTER 2025-01-18 11:30 | Outpatient (CLI) | payer MEDICARE, OTHER, SELFPAY ==
[2025-01-18 12:03] VITALS: BP 114/65; PULSE 66; RESP 16; TEMP 36.7; O2SAT 99
[2025-01-18] MEDS: INCLISIRAN SODIUM 284 MG/1.5 ML SYRINGE SUBCUT (12:03)
== END 2025-01-18 12:15 | disposition home or self-care (01) ==
LOC: INF 11:31
PROVIDERS: PCP Internal Medicine; Visit Provider Internal Medicine
DX: E78.5 Hyperlipidemia, unspecified (principal)
CPT/HCPCS: 96372; J1306

== ENCOUNTER 2025-05-29 13:22 | Outpatient (CLI) | payer MEDICARE, OTHER, SELFPAY ==
--- OUTSIDE RECORDS SUMMARY | 2025-04-10 15:30 | XMS_ITS | Encounter Summary ---
Author Organization [facility] Address [address] [place] [address] Care Team Providers Care Turbo Electric Operator Name Role Phone Provider, Generic External Data Unavailable Unavailable Akil Desai MD Unavailable [phone] Nerissa Gonzalez DO Primary Care Provider Reason for Visit * Reason Comments Known Hearing Loss Encounter Details Date Type Department Care Team (Latest Contact Info) Description 04/10/2025 3:30 PM EDT [facility] HEARING AID CHECK [facility] Physicians - Ear, Nose & Throat, [place] [address] [facility] [address] [place] [address] Bilateral sensorineural hearing loss (Primary Dx) Social History Tobacco Use Types Packs/Day Years Used Date Smoking Tobacco: Never Smokeless Tobacco: Never Alcohol Use Standard Drinks/Week Comments No 0 (1 standard drink = 0.6 oz pur e alcohol) PHQ-2 Answer Date Recorded PHQ-9 Auto Total 0 10/20/2024 Comments No Sex and Gender Information Value Date Recorded Sex Assigned at Not on file Legal Sex Female 11:40 AM EST Gender Identity Not on file Sexual Orientation Not on file Occupation Industry Job Start 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 Gracy Ellis reported the following concerns: hearing aids are near the end of repair warranty; otherwise things are working well. The hearing aid information is listed below. ASSESSMENT A visual inspection revealed no deficits. An initial listening check revealed the hearing aid(s) main in good working condition. The following maintenance was performed on the hearing aid(s): [] Replaced earhook(s) [] Replaced domes [] Replaced filter(s) [] Replaced receivers [] Replaced tubing [] Replaced retention cords [] Replaced microphone covers [] Cleaned battery contacts [] Cleaned earmolds [] Cleaned microphones [] Placed hearing aid(s) in [facility] [x] Overall Clean and Check [] Replaced batteries [] Other: [] Send to hearing aid medical surgical tech for under warranty repair [] Send to hearing aid medical surgical tech for [id number] repair. The following programming changes were made at today's visit: none SUMMARY Hearing aid(s) were found to be in good working condition. She is near the end of her 3 year warranty so we will send both hearing aids out for tune up. Will call her when they come back from repair. RECOMMENDATIONS 1. Follow up when hearing aids come back from repair PRIVATE LAW OFFICE RECEPTIONIST Erma Caal, [facility]-A Marketing Strategist Hearing Aid Information 06/02/2023 8:00 AM 03/09/2023 12:00 PM 05/02/2022 10:10 AM [facility] AUDI[facility] ARGUELLES Make, Model, Serial Number Binaural Binaural ARGUELLES Make Binaural Other Other ARGUELLES Make Binaural - Comments Widex ARGUELLES Model Binaural Real 1 R Moment 440 - rech ARGUELLES Style Binaural JORGE LUIS ARGUELLES Filter Binaural nicole care [employer] Serial Number Binaural [id number] / [id number] R: [id number] / L: [id number] Serial Number Binaural - Comments Replace SN: [id number] / [id number] ARGUELLES Side Binaural Binaural Binaural ARGUELLES Color Binaural Honey Blonde Honey Blonde Repair Warranty Expires Binaural 05/29/2023 05/30/2025 L&D Warranty Expires Binaural 05/29/2023 05/30/2025 Battery Size Binaural Other Tubing/Revceiver Length Binaural 1M 2M Dome Size Binaural small closed sm Single vent round R/L small round single-vented Program Button Binaural Yes ARGUELLES Replaced? Yes, Right and left SERIAL NUMBER [id number] Sales Promotion Officer SN: [id number] SERIAL NUMBER - Comments Replaces [id number] Warranty 05/29/2023 Sales Promotion Officer Repair Yue: 05/30/2025 Type Sales Promotion Officer Sales Promotion Officer Doctor of Record Wilfred Desai MD documented in this encounter Plan of Treatment Upcoming Encounters Date Type Department Care Team (Late st Contact Info) Description 10/20/2025 7:40 AM EST Appointment [facility] [address] [facility] [place] [address] 10/25/2025 10:30 AM EST Appointment The [address] [place] [address] Nerissa Gonzalez DO [address] [place] [address] documented as of this encounter Visit Diagnoses Diagnosis Bilateral sensorineural hearing loss- Primary Sensorineural hearing loss, bilateral documented in this encounter Additional Health Concerns Assessment Noted Time PHQ-9 Depression Total Score: 1 09/22/20 23 3:29 PM EST documented as of this encounter Care Teams Turbo Electric Operator Relationship Specialty Start Date End Date Nerissa Gonzalez DO [address] [place] [address] [place], [place] [id number] PCP - General Internal Medicine 10/20/24 Provider, Generic External Data 05/22/21 Akil Desai MD [address] [facility] [address] [place], [place] [id number] Otolaryngology 10/25/21 documented as of this encounter
--- OUTSIDE RECORDS SUMMARY | 2025-04-28 09:15 | XMS_ITS | Encounter Summary ---
Author Organization [facility] Address [address] [place] [address] Care Team Providers Care Wood Hacker Name Role Phone Provider, Generic External Data Unavailable Unavailable Akil Desai MD Unavailable [phone] Nerissa Gonzalez DO Primary Care Provider [phone] Reason for Visit * Reason Comments Known Hearing Loss Encounter Details Date Type Department Care Team (Latest Contact Info) Description 04/28/2025 9:15 AM EDT [facility] AUDIOLOGY [facility] Physicians - Ear, Nose & Throat, [place] [address] [facility] [address] [place] [address] Bilateral sensorineural hearing loss (Primary [...] 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 N ot on file documented as of this encounter Progress Notes * Gretchen Jasso - 04/28/2025 9:15 AM EDT ARGUELLES picked up documented in this encounter Plan of Treatment Upcoming Encounters Date Type Department Care Team (Late st Contact Info) Description 10/20/2025 7:40 AM EST Appointment The [facility] - [facility], [place] [facility] [place] [address] 10/25/2025 10:30 AM EST Appointment The [place], [place] [address], [facility] D [place], [place] [id number] Nerissa Gonzalez DO [address] [facility] [place] [facility] [place] [address] documented as of this encounter Visit Diagnoses Diagnosis Bilateral sensorineural hearing loss- Primary Sensorineural hearing loss, bilateral documented in this encounter Additional Health Concerns Assessment Noted Time PHQ-9 Depression Total Score: 1 09/22/20 23 3:29 PM EST documented as of this encounter Care Teams Wood Hacker Relationship Specialty Start Date End Date Nerissa Gonzalez DO [address] [facility], [place] [id number] PCP - General Internal Medicine 10/20/24 Provider, Generic External Data 05/22/21 Akil Desai MD [address] [facility] [address] [place] [address] Otolaryngology 10/25/21 documented as of this encounter
--- OUTSIDE RECORDS SUMMARY | 2025-05-15 11:20 | XMS_ITS | Encounter Summary ---
Author Organization [facility] Address [address] [place] [address] Care Team Providers Care Diabetes Clinical Manager Name Role Phone Provider, Generic External Data Unavailable Unavailable Akil Desai MD Unavailable [phone] Nerissa Gonzalez DO Primary Care Provider Reason for Visit * Reason Comments Sinusitis Encounter Details Date Type Department Care Team (Late st Contact Info) Description 05/15/2025 11:20 AM EDT Office Visit [facility] Physicians - Primary Care, [place] [address], [place] [address] Jeri Hughes, NATHALIA [address] [place] [address] Acute non-recurrent maxillary sinusitis (Primary Dx); Cold sore; Elevated liver enzymes; Decreased GFR Social History Tobacco Use Types Packs/Day Years [...] 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 file N ot on file documented as of this encounter Last Filed Vital Signs Vital Sign Reading Time Taken Comments Blood Pressure 120/80 05/15/2025 11:24 AM EDT Pulse 60 05/15/2025 11:24 AM EDT Temperature 36.3 C (97.3 F) 05/15/2025 11:24 AM EDT Respiratory Rate 16 05/15/2025 11:24 AM EDT Oxygen Saturation 97% 05/15/2025 11:24 AM EDT Inhaled Oxygen Concentration - - Weight 66.2 kg (146 lb) 05/15/2025 11:24 AM EDT Height 152.4 cm (5') 05/15/2025 11:24 AM EDT Body Mass Index 28.51 05/15/2025 11:24 AM EDT documented in this encounter Progress Notes * Jeri Hughes, PHOTOGRAMMETRY AIRPLANE PILOT - 05/15/2025 11:20 AM EDT Assessment & Plan Acute non-recurrent maxillary sinusitis Acute sinusitis Sinus pressure and facial pain for three weeks with persistent facial pain. - Prescribe amoxicillin 875 mg twice a day for 7 days. - Recommend Mucinex for symptom relief. - Suggest Flonase for significant nasal congestion. - Advise increased fluid intake. Orders: amoxicillin (AMOXIL) 875 mg tablet; Take 1 Tablet (875 mg) by mouth 2 times daily. Cold sore Herpes labialis Presence of a cold sore. Anaphylactic reaction to medication in history, not allergic to penicillin. - Prescribe Valtrex, 2 pills once a day for one day. - Provide additional dose for future use, advise not to exceed initial dose for first occurrence. Orders: valACYclovir (VALTREX) 1 gram tablet; 2 tab BID for one day only prn cold sores Elevated liver enzymes Elevated liver enzymes Elevated liver enzymes with no current specialist follow-up. - Encourage follow-up on liver enzyme levels at the lab. - Advise limited use of Tylenol due to potential liver impact. Decreased GFR Noted and discussed Recommend limiting NSAIDs and increase fluids Repeat labs ordered Subjective Chief Complaint: Sinusitis HPI 80 y.o female present today complaining of sinus pressure x 3 weeks the patient has tried Tylenol sinus Mucinex. History of Present Illness Gracy Ellis is a 80 year old female who presents with sinus pressure and facial pain. Sinus pressure and facial pain - Sinus pressure and facial pain present for approximately three weeks - Puffiness under eyes - Facial pain persists despite decreased nasal discharge since yesterday - No cough, fevers, or chills - No prior history of sinus infection - No recent antibiotic use - Normal eating and drinking habits Medication use and concerns - Took Mucinex twice and Tylenol Sinus for a couple of days - Concerned about potential impact of Tylenol Sinus on liver - Currently takes Plavix once daily Cold sore - Cold sore present - No medication taken for cold sore Allergies and substance use - No known allergy to penicillin - History of reaction to contrast dye - Non-smoker Objective There were no vitals taken for this visit. Wt Readings from Last 3 Encounters: 10/20/24 152 lb (68.9 kg) 08/16/24 144 lb (65.3 kg) 03/29/24 151 lb (68.5 kg) BP Readings from Last 3 Encounters: 10/20/24 114/72 03/29/24 111/59 09/22/23 116/74 Physical Exam Constitutional: General: She is not in acute distress. Appearance: Normal appearance. She is well-developed. She is not ill-appearing, toxic-appearing or diaphoretic. HENT: Head: Normocephalic and atraumatic. Comments: Sinus tenderness mild max Right Ear: Tympanic membrane, ear canal and external ear normal. Left Ear: Tympanic membrane, ear canal and external ear normal. Nose: No congestion. Comments: Herpetic lesion noted below the Rt nostril , scabbed Mouth/Throat: Mouth: Mucous membranes are moist. Pharynx: No oropharyngeal exudate. Eyes: Conjunctiva/sclera: Conjunctivae normal. Pupils: Pupils are equal, round, and reactive to light. Neck: Vascular: No JVD. Trachea: No tracheal deviation. Cardiovascular: Rate and Rhythm: Normal rate and regular rhythm. Heart sounds: Normal heart sounds. No murmur heard. Pulmonary: Effort: Pulmonary effort is normal. No respiratory distress. Breath sounds: Normal breath sounds. No stridor. No wheezing, rhonchi or rales. Chest: Chest wall: No tenderness. Musculoskeletal: Cervical back: Neck supple. Lymphadenopathy: Cervical: No cervical adenopathy. Skin: General: Skin is warm and dry. Neurological: Mental Status: She is alert and oriented to person, place, and time. Cranial Nerves: No cranial nerve deficit. Psychiatric: Mood and Affect: Mood normal. Behavior: Behavior normal. Thought Content: Thought content normal. Judgment: Judgment normal. Results LABS COVID-19: Negative home test reported Liver enzymes: Elevated The patient/family provided verbal consent to the use of ambient listening technology/audio recording during this visit. I reviewed/edited the note before signing. documented in this encounter Plan of Treatment Upcoming Encounters Date Type Department Care Team (Late st Contact Info) Description 10/20/2025 7:40 AM EST Appointment [facility] [address] [facility] [place], [place] [id number] 10/25/2025 10:30 AM EST Appointment [facility], [place] [employer] [address] [place], [place] [address] [place] [address] Nerissa Gonzalez DO [address] [facility] [place] [address] documented as of this encounter Visit Diagnoses Diagnosis Acute non-recurrent maxillary sinusitis- Primary Cold sore Herpes simplex without mention of complication Elevated liver enzymes Nonspecific elevation of levels of transaminase or lactic acid dehydrogenase (LDH) Decreased GFR Nonspecific abnormal results of kidney function study documented in this encounter Additional Health Concerns Assessment Noted Time PHQ-9 Depression Total Score: 1 09/22/20 23 3:29 PM EST documented as of this encounter Care Teams Diabetes Clinical Manager Relationship Specialty Start Date End Date Nerissa Gonzalez DO [facility] [place], [place] [id number] PCP - General Internal Medicine 10/20/24 Provider, Generic External Data 05/22/21 Akil Desai MD [address] [facility] [address] [place] [address] Otolaryngology 10/25/21 documented as of this encounter
--- OUTSIDE RECORDS SUMMARY | 2025-05-15 11:47 | XMS_ITS | Encounter Summary ---
Author Organization [facility] Address [address] [place] [address] Care Team Providers Care Mud Jack Operator Name Role Phone Provider, Generic External Data Unavailable Unavailable Akil Desai MD Unavailable Nerissa Gonzalez DO Primary Care Provider [phone] Encounter Details Date Type Department Care Team (Latest Contact Info) Description 05/15/2025 11:47 AM EDT - 05/15/2025 11:59 PM EDT Hospital Encounter Laboratory [address], [place] [address] Transaminitis Discharge Disposition: Home or Self Care Social History Tobacco Use Types Packs/Day Years [...] 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 14 Tablet 05/15/2025 bisoprolol-hydro chlorothiazide (ZIAC) 2.5-6.25 mg per tablet Take 1 Tablet by mouth in the morning. 3 08/14/2015 calcium citrate/vitamin D3 (CITRACAL + D PO) Take 2 Capsules by mouth in the morning. Cholecalciferol, Vitamin D3, 50 mcg (2,000 unit) Capsule Take 1 Tablet by mouth in the morning. clopidogreL (PLAVIX) 75 mg tablet Take 75 mg by mouth daily. 03/16/2024 fish oil-omega-3 fatty acids 340-1,000 mg Capsule Take 1 Capsule by mouth daily. GLUCOSAMINE HCL/CHONDR AGUSTIN A NA (OSTEO BI-FLEX PO) Take 1 Tablet by mouth in the morning. inclisiran (Leqvio) 284 mg/1.5 mL Syringe 284 mg by Subcutaneous route every 6 months. magnesium oxide (MAG-OX) 400 mg PO tablet Take 400 mg by mouth in the morning. methylcellulose (CITRUCEL PO) Take 1 tablespoon by mouth. Takes two times a week MULTIVITS W-FE,OTHER MIN/LUT (CENTRUM SILVER ULTRA WOMEN'S PO) Take 1 Tablet by mouth in the morning. valACYclovir (VALTREX) 1 gram tabletIndication s:Cold sore 2 tab BID for one day only prn cold sores 8 Tablet 05/15/2025 documented as of this encounter Plan of Treatment Upcoming Encounters Date Type Department Care Team (Late st Contact Info) Description 10/20/2025 7:40 AM EST Appointment [facility] Primary [facility] [address] [place] [address] 10/25/2025 10:30 AM EST Appointment [facility] Primary Care, [place] [address] [place] [address] Nerissa Gonzalez DO [address] [facility] [place] [address] documented as of this encounter Procedures Procedure Name Priority Date/Time Associated Diagnosis Comments COMPREHENSIVE METABOLIC PANEL Routine 05/15/2025 11:49 AM EDT Transaminitis documented in this encounter Results * (ABNORMAL) COMPREHENSIVE METABOLIC PANEL (05/15/2025 11:49 AM EDT) Sodium 142 135 - 146 mmol/L [facility] Potassium 4.4 3.5 - 5.1 mmol/L [facility] Chloride 105 98 - 110 mmol/L [facility] CO2 30(H) 22 - 29 mmol/L [facility] Anion Gap 7 5 - 13 mmol/L [facility] Comment:Anion gap calculatio n does not include potassium (K+) value. BUN 16 7 - 25 mg/dL [facility] Creatinine 0.82 0.50 - 1.20 mg/dL [facility] Glucose 93 71 - 99 mg/dL [facility] Comment:Reference range (71- 99 mg/dL) refers only to fasting samples, and does not apply to non-fasting samples. eGFR CKD-EPI 2020 73 See Note [facility] Comment: eGFR calculated with 2020 CKD-EPI equation using creatinine, patient's age and gender. Other factors, especially muscle mass, may affect accuracy and need to be considered. Patient values should be interpreted as a trend. The reference interval is >60 mL/min/1.73m2. Calcium 9.7 8.5 - 10.5 mg/dL [facility] Total Bilirubin 1.0 0.2 - 1.2 mg/dL [facility] AST 42(H) 0 - 30 U/L [facility] ALT 42(H) 0 - 40 U/L [facility] Alkaline Phosphatase 86 33 - 140 U/L [facility] Total Protein 6.7 6.0 - 8.0 g/dL [facility] Albumin 4.3 3.5 - 5.0 g/dL [facility] Globulin 2.4 2.0 - 3.7 g/dL [facility] Albumin/Globulin Ratio 1.8 1.0 - 2.1 [facility] BUN/Creatinine Ratio 20 [facility] Serum (Serum) 05/15/2025 11: 49 AM EDT 05/15/2025 6:07 PM EDT us Nerissa Gonzalez DO CHEMISTRY ORDERABLES Final Result [facility] [address] documented in this encounter Visit Diagnoses Diagnosis Transaminitis Nonspecific elevation of levels of transaminase or lactic acid dehydrogenase (LDH) documented in this encounter Additional Health Concerns Assessment Noted Time PHQ-9 Depression Total Score: 1 09/22/20 23 3:29 PM EST documented as of this encounter Care Teams Mud Jack Operator Relationship Specialty Start Date End Date Nerissa Gonzalez DO [address] [facility] [place] [address] [place] [address] PCP - General Internal Medicine 10/20/24 Provider, Generic External Data 05/22/21 Akil Desai MD [address] [facility] [place] [address] Otolaryngology 10/25/21 documented as of this encounter
--- OUTSIDE RECORDS SUMMARY | 2025-05-29 13:25 | XMS_ITS | Encounter Summary ---
Author Organization [facility] Address [address] [place] [address] Care Team Providers Care Sledger Name Role Phone Provider, Generic External Data Unavailable Unavailable Akil Desai MD Unavailable [phone] Enoch Gonzalez DO Primary Care Provider Reason for Visit * Reason Onset Date Comments Results 05/19/2025 Encounter Details Date Type Department Care Team (Late st Contact Info) Description 05/19/2025 Telephone [facility] Physicians - Primary Care, [place] [address] [facility] [address] [place] [id number] Enoch Gonzalez DO [address] [place] [place] [address] Results Social History Tobacco Use Types Packs/Day Years [...] 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 * Telephone Encounter - Pratima Miles - 05/19/2025 5:28 PM EDT Spoke to pt, she's aware, and she is ok with getting labs done. * Telephone Encounter - Enoch Gonzalez DO - 05/19/2025 5:24 PM EDT Please let Vicki know her liver numbers have slowly improved but still elevated. At this time, I would recommend additional labs to make sure only due to fatty liver. Let me know if ok then will place orders. No need to fast. Thanks documented in this encounter Plan of Treatment Upcoming Encounters Date Type Department Care Team (Late st Contact Info) Description 10/20/2025 7:40 AM EST Appointment [facility] [address] [employer], [place] [address] 10/25/2025 10:30 AM EST Appointment The [facility] Primary [facility] [address] [employer], [place] [address] Enoch Gonzalez DO [address] [place] [address] Scheduled Orders Name Type Priority Associated Diagnoses Orde r Schedule HEPATITIS A IGG ANTIBODY Lab Routine Transaminitis Screening for viral disease Expected: 05/22/2025, Expires: 05/22/2026 HEPATITIS B CORE AB Lab Routine Transaminitis Screening for viral disease Expected: 05/22/2025, Expires: 05/22/2026 HEPATITIS B SURFACE AB Lab Routine Transaminitis Screening for viral disease Expected: 05/22/2025, Expires: 05/22/2026 HEPATITIS B SURFACE AG Lab Routine Transaminitis Screening for viral disease Expected: 05/22/2025, Expires: 05/22/2026 HEPATITIS C AB WITH REFLEX TO HCV,RNA,QUANT PCR Lab Routine Transaminitis Screening for viral disease Expected: 05/22/2025, Expires: 05/22/2026 ALPHA-1 ANTITRYPSIN QUANTITATION Lab Routine Transaminitis Expected: 05/22/2025, Expires: 05/22/2026 ANTI-MITOCHONDRIAL AB Lab Routine Transaminitis Expected: 05/22/2025, Expires: 05/22/2026 ANTI-NUCLEAR AB Lab Routine Transaminitis Expected: 05/22/2025, Expires: 05/22/2026 CERULOPLASMIN Lab Routine Transaminitis Expected: 05/22/2025, Expires: 05/22/2026 FERRITIN Lab Routine Transaminitis Expected: 05/22/2025, Expires: 05/22/2026 documented as of this encounter Visit Diagnoses Diagnosis Transaminitis- Primary Nonspecific elevation of levels of transaminase or lactic acid dehydrogenase (LDH) Screening for viral disease Special screening examination for unspecified viral disease documented in this encounter Additional Health Concerns Assessment Noted Time PHQ-9 Depression Total Score: 1 09/22/20 23 3:29 PM EST documented as of this encounter Care Teams Sledger Relationship Specialty Start Date End Date Enoch Gonzalez DO [address] [facility] [place] [address] [place] [address] PCP - General Internal Medicine 10/20/24 Provider, Generic External Data 05/22/21 Akil Desai MD [address] [facility] [place] [address] Otolaryngology 10/25/21 documented as of this encounter
--- OUTSIDE RECORDS SUMMARY | 2025-05-29 13:25 | XMS_ITS | Encounter Summary ---
Author Organization [facility] Address [address] [place] [address] Care Team Providers Care Corn Husker Machine Operator Name Role Phone Provider, Generic External Data Unavailable Unavailable Akil Desai MD Unavailable [phone] Nerissa Gonzalez DO Primary Care Provider [phone] Encounter Details Date Type Department Care Team (Late st Contact Info) Description 04/24/2025 Clinical Update [facility] Physicians - Ear, Nose & Throat, [facility] [address] [place] [address] Gretchen Jasso Social History Tobacco Use Types Packs/Day Years [...] 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 [employer] reportedly completed the following: replaced all components. Warranty expires 05/30/2025. A listening check revealed the hearing aid to be functioning without defect. Hearing aid was programmed to outgoing user settings. Hearing aid to be picked up by patient at earliest convenience. Called and let her knowthey are ready for brick picker. HEARING AID INFORMATION 06/02/2023 8:00 AM 03/09/2023 12:00 PM 05/02/2022 10:10 AM [facility] AUDIOLOGY FORM ARGUELLES Make, Model, Serial Number Binaural Binaural ARGUELLES Make Binaural Other Other ARGUELLES Make Binaural - Comments [employer] ARGUELLES Model Binaural Real 1 R Moment 440 - rech ARGUELLES Style Binaural JORGE LUIS ARGUELLES Filter Binaural nicole care [employer] Serial Number Binaural [id number] / [id number] R: [id number] / L: [id number] Serial Number Binaural - Comments Replace SN: [id number] / [id number] ARGUELLES Side Binaural Binaural Binaural ARGUELLES Color Binaural Honey Blonde Honey Blonde Repair Warranty Expires Binaural 05/29/2023 05/30/2025 L&D Warranty Expires Binaural 05/29/2023 05/30/2025 Battery Size Binaural Other Tubing/Revceiver Length Binaural 1M 2M Dome Size Binaural small closed sm Single vent round R/L small round single-vented Program Button Binaural Yes ARGUELLES Replaced? Yes, Right and left SERIAL NUMBER [id number] Bark Fitter SN: [id number] SERIAL NUMBER - Comments Replaces [id number] Warranty 05/29/2023 Bark Fitter Repair Yue: 05/30/2025 Type Bark Fitter Bark Fitter Doctor of Record MD Romero Thomas Mckenzie McKenzie Carnes, AuD, CCC-A Mems Device Scientist documented in this encounter Plan of Treatment Upcoming Encounters Date Type Department Care Team (Late st Contact Info) Description 10/20/2025 7:40 AM EST Appointment [facility] Physicians - Primary Care, [address], [place] [address] [place] [address] 10/25/2025 10:30 AM EST Appointment [facility] Physicians - Primary Care, [place] [address], [place] [address] Nerissa Gonzalez DO [address] [facility] [address] [place] [address] documented as of this encounter Visit Diagnoses Not on filedocumented in this encounter Additional Health Concerns Assessment Noted Time PHQ-9 Depression Total Score: 1 09/22/20 23 3:29 PM EST documented as of this encounter Care Teams Corn Husker Machine Operator Relationship Specialty Start Date End Date Nerissa Gonzalez DO [address] [facility] [place] [address] PCP - General Internal Medicine 10/20/24 Provider, Generic External Data 05/22/21 Akil Desai MD [address] [facility] [place] [address] Otolaryngology 10/25/21 documented as of this encounter
--- OUTSIDE RECORDS SUMMARY | 2025-05-29 13:25 | XMS_ITS | Clinical Summary ---
Author Organization [facility] Address [address] [place] [address] Care Team Providers Care Wheel Mill Operator Name Role Phone Provider, Generic External Data Unavailable Unavailable Akil Desai MD Unavailable Nerissa Gonzalez DO Primary Care Provider Allergies Active Allergy Reactions Criticality Noted Date Comments Dye Anaphylaxis 04/12/2015 IVP DYE Iodinated Contrast Media 05/20/2017 Received during a bone scan Medications magnesium oxide (MAG-OX) 400 mg PO tablet Take 400 mg by mouth in the morning. Active GLUCOSAMINE HCL/CHONDR AGUSTIN A NA (OSTEO BI-FLEX PO) Take 1 Tablet by mouth in the morning. Active MULTIVITS W-FE,OTHER MIN/LUT (CENTRUM SILVER ULTRA WOMEN'S PO) Take 1 Tablet by mouth in the morning. Active Cholecalcifero l, Vitamin D3, 50 mcg (2,000 unit) Capsule Take 1 Tablet by mouth in the morning. Active bisoprolol-hyd rochlorothiazi de (ZIAC) 2.5-6.25 mg per tablet Take 1 Tablet by mouth in the morning. 3 5 Active calcium citrate/vitami n D3 (CITRACAL + D PO) Take 2 Capsules by mouth in the morning. Active methylcellulos e (CITRUCEL PO) Take 1 tablespoon by mouth. Takes two times a week Active clopidogreL (PLAVIX) 75 mg tablet Take 75 mg by mouth daily. 4 Active fish oil-omega-3 fatty acids 340-1,000 mg Capsule Take 1 Capsule by mouth daily. Active inclisiran (Leqvio) 284 mg/1.5 mL Syringe 284 mg by Subcutaneous route every 6 months. Active amoxicillin (AMOXIL) 875 mg tabletIndicati ons:Acute non-recurrent maxillary sinusitis Take 1 Tablet (875 mg) by mouth 2 times daily. 14 Tablet 5 Active valACYclovir (VALTREX) 1 gram tabletIndicati ons:Cold sore 2 tab BID for one day only prn cold sores 8 Tablet 5 Active valACYclovir (VALTREX) 1 gram tabletIndicati ons:Cold sore Take 1 Tab (1,000 mg total) by mouth every 12 hours. 30 Tab 0 025 Discontin ued(Reord er) cetirizine (ZyrTEC) 10 mg TabletIndicati ons:Bee sting, accidental or unintentional, initial encounter Take 1 Tablet (10 mg) by mouth daily. 10 Tablet 4 025 Discontin ued(Thera py Completed ) Active Problems Problem Noted Date Diagnosed Date Hepatic cyst 12/21/2024 Overview (12/21/2024): US 12/2024 Mixed hyperlipidemia 06/23/2024 Primary hypertension 06/23/2024 Cardiac pacemaker in situ 06/23/2024 Overview (06/23/2024): On 10/29/2019 pacemaker was removed and revision was completed by Dr Oliver at heart location and replaced with a [address] [employer] [address] 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 Florin TUTTLE Cerumen impaction 04/14/2015 10/14/2016 Chronic mycotic otitis externa, left 04/14/2015 10/14/2016 Dysfunction of eustachian tube 04/14/2015 10/14/2016 Chronic rhinitis 04/14/2015 10/14/2016 H/O migraine 10/14/2016 Overview (08/26/2013): occular DVT of axillary vein, acute left 10/20/2024 Encounters Date Type Department Care Team Description 05/19/2025 Telephone [facility], [place] [address] [place], [place] [id number] Nerissa Gonzalez, DO Results 05/15/2025 11:47 AM EDT - 05/15/2025 11:59 PM EDT Hospital Encounter Laboratory [address], [place] [address] Transaminitis Discharge Disposition: Home or Self Care 05/15/2025 11:20 AM EDT Office Visit [facility], [place] [address] [place] [address] [place] [address] Jeri Hughes, DIRECTOR CORRECTIONAL AGENCY Acute non-recurrent maxillary sinusitis (Primary Dx); Cold sore; Elevated liver enzymes; Decreased GFR 04/28/2025 9:15 AM EDT [facility] ENT AUDIOLOGY [facility] - Ear, Nose & Throat, [place] [address] [place] [address] Bilateral sensorineural hearing loss (Primary Dx) 04/24/2025 Clinical Update [facility] - Ear, Nose & Throat, [facility] [address] [facility] [facility] [address] [place] [address] Jasso Gretchen 04/10/2025 3:30 PM EDT [facility] HEARING AID CHECK [facility] - Ear, Nose & Throat, [place] [address] [facility] [address] [place] [address] Bilateral sensorineural hearing loss (Primary Dx) from Last 3 Months Immunizations Immunization Administration Dates Next Due Pneumococcal Polysaccharide 23 Valent (PNEUMOVAX) 06/27/2013 SARS-Cov-2 Vaccine Red Top 1 2+yrs Old (MODERNA) 08/17/2021,11/30/2020,11/01/2020 Tdap 07/10/2014 07/10/2024 Zoster-LZV(Zostavax) 06/26/2008 Family History Medical History Relation Name Comments Heart Problems Father smoker Osteoarthritis Maternal Grandmother COPD Mother smoker Dementia Mother Osteoarthritis Mother Osteoarthritis Sister 3 Osteoarthritis Sister 4 Relation Name Status Comments Daughter Alive Father (Age 72) Maternal Grandmother Mother (Age 89) Sister 1 Alive Sister 2 Alive Sister 3 Sister 4 Son Alive Social History Tobacco Use Types Packs/Day Years Used Date Smoking Tobacco: Never Smokeless Tobacco: Never Tobacco Cessation:Counseling Given: Not Answered Alcohol Use Standard Drinks/Week Comments No 0 [...] Industry 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 Not on file N ot on file Last Filed Vital Signs Vital Sign Reading [...] Mass Index 28.51 05/15/2025 11:24 AM EDT Plan of Treatment Upcoming Encounters Date Type Department Care Team (Late st Contact Info) Description 10/20/2025 7:40 AM EST Appointment [facility] - Primary [facility], [place] [address] [place], [place] [id number] 10/25/2025 10:30 AM EST Appointment [facility], [place] [address] [place], [place] [id number] Nerissa Gonzalez DO [address] [facility] [address] [facility] [place] [address] Health Maintenance Due Date Last Done Comments Cologuard 1945 FIT 1945 Tetanus Vaccination (Every 10 Years) 07/10/2024 07/10/2014 BMI Counseling 10/05/2024 Influenza Vaccination (#1) 2025 Lipid Monitoring 10/18/2025 10/18/2024, , 07/31/2021, Additional history exists Pneumococcal Vaccine: 50+ Years (2 of 2 - PCV) 10/19/2025 06/27/2013 Postponed from 06/27/2014 (Patient Declined) Fall Risk Assessment 10/20/2025 10/20/2024, 12/14/2018, 08/24/2015, Additional history exists Annual Care Visit for Contract Coordination 10/21/2025 10/20/2024, 09/22/2023, 08/09/2021, Additional history exists RSV Vaccines (1 - 1-dose 75+ series) 10/24/2025 Postponed from 2022 (Patient Declined) Colonoscopy 01/24/2026 01/24/2021, 11/0 10/2013, 12/25/2007 Colorectal Cancer Screening 01/24/2026 Osteoporosis Screening 11/14/2027 5, 11/14/2024, 04/03/2021, Additional history exists Influenza Vaccination (Yearly) Discontinued 12/14/2018 (Patient/Parent/Guardian Counseled and Declines), 10/14/2016 (Patient/Parent/Guardian Counseled and Declines), 08/24/2015 (Patient/Parent/Guardian Counseled and Declines), Additional history exists COVID-19 Vaccine Discontinued 08/17/2021, , 11/01/2020 Lipid Screening Discontinued 10/18/2024, 09/04, 07/31/2021, Additional history exists (Reporting Purposes Only) Calendar Year Medicare Annual Wellness (AWV) Completed 10/20/2024, 09/22/2023, 08/09/2021, Additional history exists Advance Care Planning Completed 10/20/2024, 023 Depression Screening Completed 10/20/2024, 09/22/2023, 08/09/2021, Additional history exists Breast Cancer Screening Discontinued 11/01/19, 11/01/2024, 11/01/2024, Additional history exists Hepatitis C Virus (HCV) Screening Completed 12/19/2024, 11/18/2018 Zoster-RZV(Shingrix) Discontinued Procedures Procedure Name Priority Date/Time Associated Diagnosis Comments COMPREHENSIVE METABOLIC PANEL Routine 05/15/2025 11:49 AM EDT Transaminitis HEPATITIS C AB WITH REFLEX TO HCV,RNA,QUANT PCR Routine 12/19/2024 10:51 AM EDT Transaminitis Encounter for screening for other viral diseases LIPID PROFILE Routine 10/18/2024 8:24 AM EST Mixed hyperlipidemia [id number] DIAGNOSTIC Routine 08/13/2022 10:48 AM EST VGM-PLTH-KSI SCAN AXIAL SKELETON Routine 04/03/2021 9:38 AM EDT EXTERNAL COLONOSCOPY - SEE COMMENT Routine 01/24/2021 from Last 3 Months or Most Recently Relevant to Health Maintenance Results * (ABNORMAL) COMPREHENSIVE METABOLIC PANEL (05/15/2025 11:49 AM EDT) Sodium 142 135 - 146 mmol/L [facility] Potassium 4.4 3.5 - 5.1 mmol/L [facility] Chloride 105 98 - 110 mmol/L [facility] CO2 30(H) 22 - 29 mmol/L [facility] Anion Gap 7 5 - 13 mmol/L [facility] Comment:Anion gap calculatio n does not include potassium (K+) value. BUN 16 7 - 25 mg/dL [facility] Creatinine 0.82 0.50 - 1.20 mg/dL [facility] Glucose 93 71 - 99 mg/dL [facility] Comment:Reference range (71- 99 mg/dL) [...] Total Bilirubin 1.0 0.2 - 1.2 mg/dL [facility] AST 42(H) 0 - 30 U/L [facility] ALT 42(H) 0 - 40 U/L [facility] Alkaline Phosphatase 86 33 - 140 U/L [facility] Total Protein 6.7 6.0 - 8.0 g/dL [facility] Albumin 4.3 3.5 - 5.0 g/dL [facility] Globulin 2.4 2.0 - 3.7 g/dL [facility] Albumin/Globulin Ratio 1.8 1.0 - 2.1 [facility] BUN/Creatinine Ratio 20 [facility] Serum (Serum) 05/15/2025 11: 49 AM EDT 05/15/2025 6:07 PM EDT us Nerissa Gonzalez DO CHEMISTRY ORDERABLES Final Result [facility] [address] * HEPATITIS C AB WITH REFLEX TO HCV,RNA,QUANT PCR (12/19/2024 10:51 AM EDT) Pathologist [facility] HCV Qual Interp Nonreactive Nonreactive [facility] Comment:IgG and IgM anti-HCV not detected. Signal/Cutoff 0.10 0.00 - 0.79 S/CO [facility] Serum 12/19/2024 10:5 1 AM EDT 12/19/2024 4:40 PM EDT Nerissa Gonzalez DO HEMATOLOGY ORDERABLES Final Result Performing Organization Address [facility] de Phone Number [facility] [address] * (ABNORMAL) LIPID PROFILE (10/18/2024 8:24 AM EST) Pathologist [facility] Cholesterol 107(L) 125 - 199 mg/dL [facility] Comment: TOTAL CHOLESTEROL INTERPRETATION: Less than 200 mg/dL Desireable 200-239 mg/dL Borderline Greater or Equal to 240 mg/dL High LDL Calculated 35 0 - 100 mg/dL [facility] Comment: LDL CHOLESTEROL INTERPRETATION: Less than 100 mg/dL Optimal 100-129 mg/dL Near optimal/above optimal 130-159 mg/dL Borderline High 160-189 mg/dL High Greater or Equal to 190 mg/dL Very High HDL 35(L) 40 - 180 mg/dL [facility] Comment: HDL CHOLESTEROL INTERPRETATION: Less than 40 mg/dL Low Greater than 60 mg/dL Desirable Triglycerides 183(H) 0 - 149 mg/dL [facility] Comment: TOTAL TRIGLYCERIDE INTERPRETATION: Less than 150 mg/dL Normal 150-199 mg/dL Borderline HIgh 200-499 mg/dL High Greater or Equal to 500 mg/dL Very High NONHDL Calculated 72 0 - 129 mg/dL [facility] Comment: NON-HDL INTERPRETATION: Less than 130 mg/dL Desirable 130-159 mg/dL Above Desirable 160-189 mg/dL Borderline High 190-219 mg/dL High Greater than or equal to 220 mg/dL Very High Serum (Serum) 10/18/2024 8:2 4 AM EST 10/18/2024 4:41 PM EST Narrative [facility] - 10/18/2024 5:02 PM EST Has the patient fasted?->Yes Radha Verduzco DO CHEMISTRY ORDERABLES Final Result Performing Organization Address City/State/[facility] Co de Phone Number [facility] [address] * PDA-OUI-YDUGVSNAPBYIP DIAGNOSTIC (08/13/2022 10:48 AM EST) 08/13/2022 10:[address] [facility] - 08/13/2022 10:57 AM EST Procedure:MM MAMMO DIGITAL NIMESH DIAGN RIGHT Reason for exam: addl evaluation requested from abnormal screening. R92.8-Other abnormal and inconclusive findings on diagnostic imaging of [id number] MM MAMMO DIGITAL NIMESH DIAGN RIGHT CC and MLO view(s) were taken of the right breast. There are scattered fibroglandular densities. Prior study comparison: Compared with prior studies the most recent being 07/04/22, 04/12/21 Additional views are normal. No evidence of mass or distortion. The screening finding was a summation artifact. IMPRESSION: Negative (OSV-Haefxdoo-3) RECOMMENDATION: Routine screening mammogram in 1 year. Tomosynthesis recommended DISCLAIMER * Any patient with a palpable abnormality, unexplained by breast imaging, should be managed on clinical basis by the attending physician. * Breast imaging has a false negative rate of 15%. * The patient was notified by mail of the results of this examination. *The patient's information was entered into a reminder system with a target due date for the next mammogram, in accordance with the [place] [employer] and the Society of Breast Imaging recommendations. Procedure Note ProviderGloria - 08/13/2022 Procedure:MM MAMMO DIGITAL NIMESH DIAGN RIGHT Reason for exam: addl evaluation requested from abnormal screening. R92.8-Other abnormal and inconclusive findings on diagnostic imaging of [id number] MM MAMMO DIGITAL NIMESH DIAGN RIGHT CC and MLO view(s) were taken of the right breast. There are scattered fibroglandular densities. Prior study comparison: Compared with prior studies the most recentbeing 07/04/22, 04/12/21 Additional views are normal. No evidence of mass or distortion. The screening finding was a summation artifact. IMPRESSION: Negative (QUH-Idhcnliw-5) RECOMMENDATION: Routine screening mammogram in 1 year. Tomosynthesis recommended DISCLAIMER * Any patient with a palpable abnormality, unexplained by breast imaging, should be managed on clinical basis by the attending physician. * Breast imaging has a false negative rate of 15%. * The patient was notified by mail of the results of this examination. *The patient's information was entered into a reminder system with a target due date for the next mammogram, in accordance with the [place] [employer] and the Society of Breast Imaging recommendations. Faviola Mcarthur MD [facility] IMG RESULTS ONLY Fi nal Result [facility] * [id number] SCAN AXIAL SKELETON (04/03/2021 9:38 AM EDT) 04/03/2021 9:[address] [facility] - 04/03/2021 1:59 PM EDT Indication: The patient is a female age 65 or older who requires a bone density assessment. Study was performed on [employer]. Bone Density: Region BMD T-score Z-score AP Spine (L1, L3, L4) 0.842 -1.9 0.5 Femoral Neck (Left) 0.581 -2.4 -0.4 Total Hip (Left) 0.728 -1.8 0.0 1/3 Radius (Left) 0.663 -0.5 1.9 World Health Organization criteria for BMD interpretation classify patients as: Normal (T-score at or above -1.0), Low Bone Density (T-score between -1.0 and -2.5), or Osteoporotic (T-score at or below -2.5). T Scores are reported in Postmenopausal women and in men age 50 and older. Z-scores are reported in females prior to menopause and in males younger than age 50. 10-year Fracture Risk: FRAX not reported because: Prior hip or vertebral fracture Previous Exams: Region Date Age BMD T-score BMD Change AP Spine(L1, L3, L4) 04/03/2021 75 0.842 -1.9 0.7% 02/06/2018 72 0.836 -2.0 Total Hip(Left) 04/03/2021 75 0.728 -1.8 -4.3%* 02/06/2018 72 0.761 -1.5 -7.1%* 01/15/2015 69 0.819 -1.0 -1.6% 01/12/2013 67 0.832 -0.9 -2.0% 09/03/2010 65 0.850 -0.8 1/3 Forearm(Left) 04/03/2021 75 0.663 -0.5 3.4% 02/06/2018 72 0.641 -0.9 -4.6%* 01/15/2015 69 0.672 -0.4 -3.5% 01/12/2013 67 0.696 0.0 *Denotes significance at 95% confidence level, LSC for AP Spine = 0.032g/cm2, LSC for Total Hip = 0.024 g/cm2, LSC for Distal 1/3 Radius = 0.026 g/cm2, site specific LSC for AP Spine = 0.032 g/cm2, site specific LSC for Total Hip = 0.022 g/cm2 BMD is shown in g/cm2 and BMD Change indicates change vs previous BMD Clinical Information Provided by Patient: Has had a previous hip or vertebral fracture. Has had a low trauma fracture. Has used or is currently using the following medications: Calcium, Vitamin D, Diuretic Patient maximum height was 65.0 Menopause Age: 45 Patient is Postmenopausal. Interpretation: Bone mineral density is in the low bone density range. A minimum of two years may be required between bone density studies due to inherent testing precision limitations. Intervals between BMD testing should be determined according to each patient's clinical status: typically one year after initiation or change of therapy is appropriate, with longer intervals once therapeutic effect is established. The spine bone mineral density is not significantly changed since the last exam. The spine portion of the study is limited by a compression fracture with associated vertebra deleted. The left hip bone mineral density is significantly decreased since the last exam. Although not approved for monitoring therapy the forearm bone mineral density is not significantly changed since the last exam. Reported by: Jigna Allen PA-C, CCD on 04/03/2021 12:57:00 PM. Procedure Note Provider, [facility] - 04/03/2021 Indication: The patient is a female age 65 or older who requires a bone density assessment. Study was performed on [employer]. Bone Density: Region BMD T-score Z-score AP Spine (L1, L3, L4) 0.842 -1.9 0.5 Femoral Neck (Left) 0.581 -2.4 -0.4 Total Hip (Left) 0.728 -1.8 0.0 1/3 Radius (Left) 0.663 -0.5 1.9 World Health Organization criteria for BMD interpretation classify patients as: Normal (T-score at or above -1.0), Low Bone Density (T-score between -1.0 and -2.5), or Osteoporotic (T-score at or below -2.5). T Scores are reported in Postmenopausal women and in men age 50 and older. Z-scores are reported in females prior to menopause and in males younger than age 50. 10-year Fracture Risk: FRAX not reported because: Prior hip or vertebral fracture Previous Exams: Region Date Age BMD T-score BMD Change AP Spine(L1, L3, L4) 04/03/2021 75 0.842 -1.9 0.7% 02/06/2018 72 0.836 -2.0 Total Hip(Left) 04/03/2021 75 0.728 -1.8 -4.3%* 02/06/2018 72 0.761 -1.5 -7.1%* 01/15/2015 69 0.819 -1.0 -1.6% 01/12/2013 67 0.832 -0.9 -2.0% 09/03/2010 65 0.850 -0.8 1/3 Forearm(Left) 04/03/2021 75 0.663 -0.5 3.4% 02/06/2018 72 0.641 -0.9 -4.6%* 01/15/2015 69 0.672 -0.4 -3.5% 01/12/2013 67 0.696 0.0 *Denotes significance at 95% confidence level, LSC for AP Spine = 0.032g/cm2, LSC for Total Hip = 0.024 g/cm2, LSC for Distal 1/3 Radius = 0.026 g/cm2, site specific LSC for AP Spine = 0.032 g/cm2, site specific LSC for Total Hip = 0.022 g/cm2 BMD is shown in g/cm2 and BMD Change indicates change vs previous BMD Clinical Information Provided by Patient: Has had a previous hip or vertebral fracture. Has had a low trauma fracture. Has used or is currently using the following medications: Calcium, Vitamin D, Diuretic Patient maximum height was 65.0 Menopause Age: 45 Patient is Postmenopausal. Interpretation: Bone mineral density is in the low bone density range. A minimum of two years may be required between bone density studies due to inherent testing precision limitations. Intervals between BMD testing should be determined according to each patient's clinical status: typically one year after initiation or change of therapy is appropriate, with longer intervals once therapeutic effect is established. The spine bone mineral density is not significantly changed since the last exam. The spine portion of the study is limited by a compression fracture with associated vertebra deleted. The left hip bone mineral density is significantly decreased since the last exam. Although not approved for monitoring therapy the forearm bone mineral density is not significantly changed since the last exam. Reported by: Jigna Allen PA-C, CCD on 04/03/2021 12:57:00 PM. us External Provider [facility] IMG RESULTS ONLY Final Result [facility] * EXTERNAL COLONOSCOPY - SEE COMMENT (01/24/2021) us Historical Provider [facility] Final Result from Last 3 Months or Most Recently Relevant to Health Maintenance Insurance MEDICARE PART A [facility] [address] MEDICARE Care Teams Wheel Mill Operator Relationship Specialty Start Date End Date Nerissa Gonzalez DO [address] [facility] [address] [place] [id number] PCP - General Internal Medicine 10/20/24 Provider, Generic External Data 05/22/21 Akil Desai MD [address] [place] [address] Otolaryngology 10/25/21
--- OUTSIDE RECORDS SUMMARY | 2025-05-29 13:25 | XMS_ITS | Encounter Summary ---
Author Organization [facility] Address [address] [place] [address] Care Team Providers Care Cable Placer Name Role Phone Provider, Generic External Data Unavailable Unavailable Akil Desai MD Unavailable [phone] Nerissa Gonzalez DO Primary Care Provider Reason for Visit * Reason Onset Date Comments Orders Needed 10/20/2024 Labs for MPE 10/06 10/30 Encounter Details Date Type Department Care Team (Late st Contact Info) Description 10/20/2024 Telephone [facility] - [facility], [place] [address] [facility] [place] [address] [place] [address] Nerissa Gonzalez DO [address] [place] [address] Orders Needed (Labs for MPE 10/25/25) Social History Tobacco Use Types Packs/Day Years [...] 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 Expected date should be within two weeks of appointments What type of appointment is patient being seen for : MPE When is the appointment : 10/25/25 Is the patient aware to do labs: Yes. Pt scheduled a lab appt on 10/20/25 documented in this encounter Plan of Treatment Upcoming Encounters Date Type Department Care Team (Late st Contact Info) Description 10/20/2025 7:40 AM EST Appointment [facility] Primary [facility], [place] [address] [place] [phone] 10/25/2025 10:30 AM EST Appointment [facility], [place] [address] [facility], [place] [address] Nerissa Gonzalez DO [address] [facility] [address] [place] [phone] documented as of this encounter Visit Diagnoses Not on filedocumented in this encounter Additional Health Concerns Assessment Noted Time PHQ-9 Depression Total Score: 1 09/22/20 23 3:29 PM EST documented as of this encounter Care Teams Cable Placer Relationship Specialty Start Date End Date Nerissa Gonzalez DO [address] [facility] [address] [employer], [place] [address] PCP - General Internal Medicine 10/20/24 Provider, Generic External Data 05/22/21 Akil Desai MD [address] [email or web address] [address] Otolaryngology 10/25/21 documented as of this encounter
--- OUTSIDE RECORDS SUMMARY | 2025-05-29 13:25 | XMS_ITS | Encounter Summary ---
Author Organization [place] [address] Care Team Providers Care Chiller Tender Name Role Phone Faviola Mcarthur MD Primary Care Provider [phone] Encounter Details Date Type Department Care Team (Late st Contact Info) Description 09/11/2014 Orders Only [facility] Ed[facility] [address] [place] [address] Delaney Mathias, SUPERVISOR [employer] [address] [place] [address] Social History Tobacco Use Types Packs/Day Years Used Date Smoking Tobacco: Never Smokeless Tobacco: Never Alcohol Use Standard Drinks/Week Comments Not Asked 0 (1 standard drink = 0.6 oz pur e alcohol) Comments Unknown Sex and Gender Information Value Date Recorded Sex Assigned at Not on file Legal Sex Female 7:53 PM EDT Gender Identity Not on file Sexual Orientation Not on file documented as of this encounter Functional Status * Cognitive and Functional Status Question Answer Date of Assessment Author Is the person deaf or does h e/she have serious difficulty hearing? No 09/12/2014 12:00 PM Shweta Rodriguez RN Is the person blind or does he/she have serious difficulty seeing even when wearing glasses? No 09/12/2014 12:00 PM Shweta Wiseman RN Does this person have seriou s difficulty walking or climbing stairs? No 09/12/2014 12:00 PM Shweta Wiseman R N Does this person have diffic ulty dressing or bathing? No 09/12/2014 12:00 PM Shweta Wiseman RN documented as of this encounter Mental Status * Cognitive and Functional Status Question Answer Entry Date Author Because of a physical, menta l or emotional condition, does this person have difficulty doing errands alone such as visiting a doctor's office or shopping? No 09/12/2014 12:00 PM Shweta Wiseman R N Because of a physical, menta l or emotional condition, does this person have serious difficulty concentrating, remembering or making decisions? No 09/12/2014 12:00 PM Shweta Wiseman R N documented in this encounter Plan of Treatment Not on file documented as of this encounter Procedures Procedure Name Priority Date/Time Associated Diagnosis Comments ELECTROPHYSIOLOGY OR IMPLANT PROCEDURE LOG Routine 09/11/2014 3:30 PM EST documented in this encounter Results * ELECTROPHYSIOLOGY OR IMPLANT PROCEDURE LOG (09/11/2014 3:30 PM EST) 09/11/2014 3:30 PM EST us Delaney Mathias [employer] CARDIAC CATH ORDERABLES Fi nal Result Performing Organization Address City/State/[facility] Co de Phone Number [facility] [address] [place] [address] documented in this encounter Visit Diagnoses Not on filedocumented in this encounter Care Teams Chiller Tender Relationship Specialty Start Date End Date Faviola Mcarthur MD PCP - General Family Medicine 01/05/13 documented as of this encounter
--- OUTSIDE RECORDS SUMMARY | 2025-05-29 13:25 | XMS_ITS | Encounter Summary ---
Author Organization [place] [address] Care Team Providers Care Manager Sales And Marketing Name Role Phone Faviola Mcarthur MD Primary Care Provider [phone] Encounter Details Date Type Department Care Team (Late st Contact Info) Description 09/11/2014 Orders Only [facility] Arrhythmia Ctr Edg [address] [facility] [address] [place] [address] Ba Freeman MD [address] [place] [address] Social History Tobacco Use Types Packs/Day Years [...] Procedure Name Priority Date/Time Associated Diagnosis Comments PACEART REPORT Routine 09/11/2014 5:03 PM EST documented in this encounter Results * PACEART REPORT (09/11/2014 5:03 PM EST) us Ba Freeman MD [facility] CARDIAC CATH ORDERABLE S Final Result Performing Organization Address City/State/[facility] Co de Phone Number [facility] [address] [place] [address] documented in this encounter Visit Diagnoses Not on filedocumented in this encounter Care Teams Manager Sales And Marketing Relationship Specialty Start Date End Date Faviola Mcarthur MD PCP - General Family Medicine 01/05/13 documented as of this encounter
--- OUTSIDE RECORDS SUMMARY | 2025-05-29 13:25 | XMS_ITS | Clinical Summary ---
Author Organization [facility] Address [address] [facility] [place] [address] Phone Care Team Providers Care Robotype Operator Name Role Phone Faviola Mcarthur MD Primary Care Provider [phone] Allergies Active Allergy Reactions Criticality Noted Date Comments Iodinated Contrast Media 05/29/2011 Received during a bone scan Medications magnesium oxide (MAG-OX) 400 mg tablet Take 400 mg by mouth daily. Active Fubp-Zujd-SNY#1 -E-Czrh-Dzk-Bor (OSTEO BI-FLEX) 750-625-30 mg Tab Take 1 Tab by mouth 2 times daily. Active FOLIC ACID/MULTIVITS- MIN/LUT (CENTRUM SILVER ORAL) Take 1 Tab by mouth daily. Active Cholecalciferol , Vitamin D3, (VITAMIN D3) 2,000 unit Oral Tablet Take 2,000 Units by mouth daily. Active FERROUS FUMARATE/VIT BCOMP&C (SUPER B COMPLEX ORAL) Take 1 Tab by mouth daily. Active CALCIUM PHOSPHATE TRIB/VIT D3 (CITRACAL + D ORAL) Take 2 Tabs by mouth daily. Active fish oil-omega-3 fatty acids 340-1,000 mg Oral Capsule Take 1 Capsule by mouth daily. Active clopidogreL (PLAVIX) 75 mg Oral Tablet TAKE 1 TABLET BY MOUTH DAILY FOR 90 DAYS WITH ASPIRIN 81MG FOR DAPT Active bisoproloL-hydr ochlorothiazide (ZIAC) 2.5-6.25 mg Oral Tablet Take 1 Tablet by mouth daily. Active inclisiran sodium (LEQVIO SUBQ) Subcutaneous (Inject under the skin). twice a year Active Active Problems Problem Noted Date Diagnosed Date History of colon polyps 09/05/2024 DVT of upper extremity (deep vein thrombosis) LE FT 09/1710/02/2014 Chest pain 09/21/2014 Overview (09/21/2014): Due to Pneumothorax Pneumothorax 09/21/2014 Overview (09/22/2014): Pneumothorax measuring 3.3 cm Pul to see S/p Pleural pigtail catheter Pacemaker 09/12/2014 Overview (09/12/2014): Medtronic Implanted 09/11/2014 Dual Chamber Atelectasis 09/11/2014 Overview (09/11/2014): Nearly normal chest. Minimal residual left base atelectasis on Xray IS continue Monitor post pacemaker as well Syncope 09/09/2014 Overview (09/11/2014): Pt had some sob past week and syncopal episode lasted for 20 sec at home EKG - A-V block, non-specific t-wave changes CT head - ok Troponin - neg ECHO - diastolic dysfunction Carotid US - P PPM placement in AM Cant able to get stress test b/o iodine allergy - Per Dr freeman - echo - ok and no further need for stress test needed AV block, 2nd degree 09/09/2014 Overview (09/18/2014): S/P Medtronic dual chamber pacemaker implant 09/11/2014 Shortness of breath 09/09/2014 Osteopenia 07/02/2012 S/P hysterectomy 07/02/2012 Migraine 07/02/2012 Surgical History Surgery Date Site/Laterality Comments CARDIAC PACEMAKER PLACEMENT 09/11/2014 MDT dual chamber pacemaker implant-Dr. Freeman HYSTERECTOMY BREAST SURGERY BREAST LUMPECTOMY Medical History Medical History Date Comments Syncope and collapse Mobitz type 2 second degree heart block DVT (deep venous thrombosis) (HCC) Pneumothorax Family History Medical History Relation Name Comments Heart Disease Father Other Mother COPD, dementia, osteoporosis Arthritis Sister Other Sister osteoporosis Relation Name Status Comments Father Mother Alive Sister Alive Social History Tobacco Use Types Packs/Day Years Used Date Smoking Tobacco: Never Smokeless Tobacco: Never Alcohol Use Standard Drinks/Week Comments No 0 (1 standard drink = 0.6 oz pur e alcohol) Comments No Sex and Gender Information Value Date Recorded Sex Assigned at Not on file Legal Sex Female 7:53 PM EDT Gender Identity Not on file Sexual Orientation Not on file Obstetrics History Para Term AB IAB SAB Ectopic Multiple Livin g Live Births 2 Last Filed Vital Signs Vital Sign Reading Time Taken Comments Blood Pressure 127/69 09/05/2024 12:32 PM EST Pulse 71 09/05/2024 12:32 PM EST Temperature 36.6 C (97.9 F) 09/05/2024 12:32 PM EST Respiratory Rate 16 09/05/2024 12:32 PM EST Oxygen Saturation 96% 05/21/2021 8:43 AM EDT Inhaled Oxygen Concentration - - Weight 68 kg (150 lb) 11/01/2024 12:41 PM EST Height 162.6 cm (5' 4 ) 11/01/2024 12:41 PM EST Body Mass Index 25.75 11/01/2024 12:41 PM EST Plan of Treatment Health Maintenance Due Date Last Done Comments Wellness Exam Medicare 1948 Hepatitis C Screening 1965 Zoster (2 of 3) 08/21/2008 06/26/2008 Pneumococcal Vaccine 50+ (2 of 2 - PCV) 06/27/2014 06/27/2013 RSV or 60+ (1 - 1-dose 75+ series) 2022 COVID-19 Vaccine ( season) 2024 08/17/2021, 11/30/2020, 11/01/2020 DTaP/TDaP/Td (2 - Td or Tdap) 07/10/2024 07/10/2014 Influenza Vaccine (#1) 2025 09/09/2014 Bone Density Screening Completed , 04/03/2021, 04/03/2021, Additional history exists Hepatitis B Vaccine Aged Out No longe r eligible based on patient's age to complete this topic Meningococcal B Vaccine Aged Out No l onger eligible based on patient's age to complete this topic Medical Devices Implanted Type Area Parts Counter Clerk Device Identifier Shelf Expiration Date Model / Serial / Lot Lead Capsurefix Mri 5086 Is-I Bi Artrial 58cm - [id number] Implanted:Qty: 1 on 09/11/2014 at [facility] TELEVISION AUDIO ENGINEER [employer]:CARDIAC SURG SRVC [id number] / [id number] / Lead Capsurefix Mri 5086 Is-I Bi Artrial 52cm - [id number] Implanted:Qty: 1 on 09/11/2014 by Ba Freeman MD at [facility] TELEVISION AUDIO ENGINEER [employer]:PACING SYS [id number] / [id number] / Pacemaker Advisadual Chamber Mri - [id number] Implanted:Qty: 1 on 09/11/2014 by Ba Freeman MD at [facility] TELEVISION AUDIO ENGINEER [employer]:PACING SYS [id number] / [id number] / Procedures Procedure Name Priority Date/Time Associated Diagnosis Comments DX BONE DENSITY AXIAL SKELETON Routine 11/14/2024 1:14 PM EST Osteopenia of other site from Last 3 Months or Most Recently Relevant to Health Maintenance Results * DX BONE DENSITY AXIAL SKELETON (11/14/2024 1:14 PM EST) Anatomical Region Laterality Modality Dexa Scan 11/14/2024 Impressions 11/18/2024 2:30 PM EST Indication: The patient is a female age 65 or older who requires a bone density assessment. Study was performed on [employer] 5. Bone Density: Region BMD T-score Z-score Femoral Neck (Left) 0.596 -2.3 -0.1 Total Hip (Left) 0.745 -1.6 0.3 10/07 Radius (Left) 0.664 -0.5 2.3 World Health Organization criteria for BMD interpretation [...] Region Date Age BMD T-score BMD Change Total Hip(Left) 11/14/2024 79 0.745 -1.6 2.3% 04/03/2021 75 0.728 -1.8 -4.3%* 02/06/2018 72 0.761 -1.5 -7.1%* 01/15/2015 69 0.819 -1.0 -1.6% 01/12/2013 67 0.832 -0.9 -2.0% 09/03/2010 65 0.850 -0.8 1/3 Forearm(Left) 11/14/2024 79 0.664 -0.5 0.2% 04/03/2021 75 0.663 -0.5 3.4% 02/06/2018 72 0.641 -0.9 -4.6%* 01/15/2015 69 0.672 -0.4 -3.5% 01/12/2013 67 0.696 0.0 -7.1%* 10/01/2001 56 0.750 0.9 *Denotes significance at 95% confidence level, LSC for AP Spine = 0.032g/cm2, LSC for Total Hip = 0.024 g/cm2, LSC for Distal 1/3 Radius = 0.026 g/cm2, site specific LSC for Total Hip = 0.022 g/cm2 BMD is shown in g/cm2 and BMD Change indicates change vs previous BMD Clinical Information Provided by Patient: Have had a previous hip or vertebral fracture Has had a low trauma fracture Has used or is currently using the following medications: Calcium, Vitamin D Patient maximum height was 65 Menopause Age: 45 Interpretation: Bone mineral density is in the low bone density range. The left hip bone mineral density is not significantly changed since last exam. Although not approved for monitoring therapy the forearm bone mineral density is not significantly changed since the last exam. The spine portion of the study is omitted due to hypertrophic change. Medical evaluation for secondary causes of low bone mineral density may be appropriate. A minimum of two years may be required between bone density studies due to inherent testing precision limitations. Intervals between BMD testing should be determined according to each patient's clinical status: typically one year after initiation or change in therapy is appropriate, with longer intervals once therapeutic effect is established. Reported by: Sierra Mahoney PA-C, [facility] on 11/14/2024 3:09:00 PM. Nerissa Gonzalez DO IMG DEXA ORDERABLES Final R esult from Last 3 Months or Most Recently Relevant to Health Maintenance Insurance [place] [address] [employer] MEDICARE SUPPLEMENT [place] [employer] MEDICARE SUPPLEMENT [place] Advance Directives For more information, please contact: [phone] * Full Code (Latest Code Status on File) Date Activated Date Inactivated Comments 09/23/2014 8:14 AM 09/25/2014 7:44 PM Care Teams Robotype Operator Relationship Specialty Start Date End Date Faviola Mcarthur MD PCP - General Family Medicine 01/05/13
--- OUTSIDE RECORDS SUMMARY | 2025-05-29 13:25 | XMS_ITS | Clinical Summary ---
Author Organization [facility] Address [address] [place] [address], [address] [place] [address] Care Team Providers Care Student Success Counselor Name Role Phone Faviola Mcarthur MD Primary Care Provider Unavailab le Allergies Active Allergy Reactions Criticality Noted Date Comments Iodides Anaphylaxis High 05/29/2011 IVP DYE Received during a bone scan IVP DYE Medications atorvastatin (LIPITOR) 10 MG tablet 5 mg 3 11/02/2018 Active bisoprolol-hydr ochlorothiazide (ZIAC) 2.5-6.25 MG per tablet Take by mouth 08/14/2015 A ctive aspirin 81 MG tablet Take 81 mg by mouth Active Glucosamine-Cho ndroitin (GLUCOSAMINE CHONDR COMPLEX PO) Take by mouth Active magnesium oxide (MAG-OX) 400 MG tablet Take 400 mg by mouth Active B Complex Vitamins (VITAMIN-B COMPLEX PO) Take 1 capsule by mouth Active Cholecalciferol 2000 units TABS Take by mouth Active calcium citrate-vitamin d 250-200 MG-UNIT TABS Take 2 capsules by mouth daily Active Multiple Vitamins-Minera ls (THERAPEUTIC MULTIVITAMIN-AR NERALS) tablet Take 1 tablet by mouth daily Active Active Problems Problem Noted Date Diagnosed Date Labral tear of long head of right biceps tendon 08/02/2019 Family History Medical History Relation Name Comments Heart Disease Father Relation Name Status Comments Father Social History Tobacco Use Types Packs/Day Years Used Date Smoking Tobacco: Never Smokeless Tobacco: Never Tobacco Cessation:Counseling Given: Yes Alcohol Use Standard Drinks/Week Comments No 0 (1 standard drink = 0.6 oz pur e alcohol) Comments No Sex and Gender Information Value Date Recorded Sex Assigned at Not on file Legal Sex Female 1:23 PM EST Gender Identity Not on file Sexual Orientation Not on file Last Filed Vital Signs Vital Sign Reading Time Taken Comments Blood Pressure 93/60 02/25/2022 1:36 PM EDT Pulse 78 02/25/2022 1:36 PM EDT Temperature 36.6 C (97.9 F) 02/25/2022 1:36 PM EDT Respiratory Rate 16 02/25/2022 1:36 PM EDT Oxygen Saturation 98% 10/21/2012 8:00 AM EST Inhaled Oxygen Concentration - - Weight 64.4 kg (142 lb) 02/25/2022 1:36 PM EDT Height 165.1 cm (5' 5 ) 02/25/2022 1:36 PM EDT Body Mass Index 23.63 02/25/2022 1:36 PM EDT Plan of Treatment Not on file Insurance MEDICARE Member Subscriber Plan / Payer (Ef fective 2014-Present) Name:Ellis Gracy A Relation to Subscriber:Self Name:Caleb Gracy A Payer ID:Not on file Group ID:Not on file Type:Not on file Address: [address] Care Teams Student Success Counselor Relationship Specialty Start Date End Date Faviola Mcarthur MD PCP - General 09/16/19
--- OUTSIDE RECORDS SUMMARY | 2025-05-29 13:25 | XMS_ITS | Referral Summary ---
Author Organization [facility] Address [address] [place] [address] Care Team Providers Care Proposal Writer Name Role Phone Faviola Mcarthur MD Primary Care Provider Unavailab Radha Hillman MD Unavailable [phone] Allergies Active Allergy Reactions Criticality Noted Date Comments Ivp Dye Anaphylaxis High 04/10/2017 Medications bisoprolol-hydro chlorothiazide (ZIAC) 2.5-6.25 MG TABS Take 1 tablet by mouth daily. Active atorvastatin (LIPITOR) 10 MG TABS Take 5 mg by mouth daily. Active Multiple Vitamins-Mineral s (MULTI FOR HER 50+) CAPS Take by mouth daily. Active VITAMIN D, CHOLECALCIFEROL, PO Take by mouth daily. Active Calcium Carbonate-Vit D-Min (CALCIUM 1200 PO) Take by mouth daily. Active magnesium oxide (MAG-OX) 400 MG TABS Take 400 mg by mouth daily. Active Misc Natural Products (OSTEO BI-FLEX ADV TRIPLE ST PO) Take by mouth daily. Active aspirin 81 MG TBEC Take 81 mg by mouth daily. Active clopidogrel (PLAVIX) 75 mg TABS Take 75 mg by mouth daily. Active inclisiran (LEQVIO) 284 MG/1.5ML SOSY Inject 284 mg under the skin every 6 (six) months. Active Active Problems Problem Noted Date Diagnosed Date Fitting and adjustment of pessary 07/31/2022 Cystocele, midline 04/10/2017 Rectocele 04/10/2017 Vaginal vault prolapse after hysterectomy 2016 Vaginal atrophy 04/10/2017 LEOBARDO (stress urinary incontinence, female) 2016 Cardiac pacemaker in situ 04/10/2017 History of DVT (deep vein thrombosis) 04/10/2017 Social History Tobacco Use Types Packs/Day Years Used Date Smoking Tobacco: Never Smokeless Tobacco: Never Alcohol Use Standard Drinks/Week Comments No 0 (1 standard drink = 0.6 oz pur e alcohol) Food Insecurities Answer Date Recorded Worried about running out of food Not on file 10/25/2023 Food Bought Not on file 10/25/2023 Housing/Utilities Answer Date Recorded Worried about losing home Not on file 2023 Stayed outside house Not on file 10/25/2023 Unable to get utilities Not on file 10/25/19 Interpersonal Safety Answer Date Record ed Feel physically or emotionally unsafe where curr ently live Not on file 10/25/2023 Harm by anyone Not on file 10/25/2023 Emotionally Harmed Not on file 10/25/2023 Transportation Answer Date Recorded Worried about transportation Not on file Comments No Sex and Gender Information Value Date Recorded Sex Assigned at Not on file Legal Sex Female 8:34 PM EDT Gender Identity Not on file Sexual Orientation Not on file Last Filed Vital Signs Vital Sign Reading Time Taken Comments Blood Pressure 104/61 09/27/2024 10:28 AM EST Pulse 72 05/15/2017 1:24 PM EDT Temperature - - Respiratory Rate 14 05/15/2017 1:24 PM EDT Oxygen Saturation - - Inhaled Oxygen Concentration - - Weight 68.8 kg (151 lb 9.6 oz) 09/27/2024 10:28 AM EST Height 157.5 cm (5' 2 ) 09/27/2024 10:28 AM EST Body Mass Index 27.73 09/27/2024 10:28 AM EST Plan of Treatment Not on file Procedures Procedure Name Priority Date/Time Associated Diagnosis Comments DEXA BONE DENSITY,AXIAL SKELETON Routine 04/03/2021 9:38 AM EDT from Last 3 Months or Most Recently Relevant to Health Maintenance Results * DEXA BONE DENSITY,AXIAL SKELETON (04/03/2021 9:38 AM EDT) Anatomical Region Laterality Modality Other 04/03/2021 9:38 AM EDT Narrative 04/03/2021 1:59 PM EDT Indication: The patient is a female age 65 or older who requires a bone density assessment. Study was performed on [employer] 5. Bone Density: Region BMD T-score Z-score [...] Allen PA-C, CCD on 04/03/2021 12:57:00 PM. Daly Nava MD SPECIAL IMAGING STUDIES Fi nal Result from Last 3 Months or Most Recently Relevant to Health Maintenance Insurance MEDICARE on file MEDICARE SUPPLEMENT Care Teams Proposal Writer Relationship Specialty Start Date End Date Faviola Mcarthur MD PCP - General Family Medicine 04/10/17 Radha Novak MD Consulting Physician Female Pelvic Med & Reconstructive Surgery 05/19/17
--- OUTSIDE RECORDS SUMMARY | 2025-05-29 13:25 | XMS_ITS | Clinical Summary ---
Author Organization [facility] Address [address] [place] [address] Care Team Providers Care Area Forester Name Role Phone Faviola Mcarthur MD Primary Care Provider Unavailab Radha Hillman MD Unavailable [phone] Allergies Active Allergy Reactions Criticality Noted [...] History of DVT (deep vein thrombosis) 04/10/2017 Family History Medical History Relation Name Comments Heart Disease Father COPD Mother Relation Name Status Comments Father Mother Social History Tobacco Use Types Packs/Day Years [...] 09/27/2024 10:28 AM EST Plan of Treatment Health Maintenance Due Date Last Done Comments Hepatitis C Screening 1945 Shingrix (#1) 1997 Pneumococcal 50+ (2 of 2 - PCV) 06/27/2014 06/27/2013 RSV Vaccine (60+ or ) (1 - 1-dose 75+ series) 2022 COVID-19 Vaccine ( - 2023-2 5 season) 2024 08/17/2021, 11/30/2020, 11/01/2020 DTap,Tdap,and Td (2 - Td or Tdap) 07/10/2024 07/10/2014 Influenza Vaccine (#1) 2025 09/09/2014 DEXA Scan Completed 04/03/2021, 02/06/2018 HPV Aged Out No longer eligi ble based on patient's age to complete this topic Meningococcal conjugate serjio nt 4 (MCV4) Aged Out No longer eligible b ased on patient's age to complete this topic RSV Immunization (<20 months) Aged Out No longer eligible based on patient's age to complete this topic Procedures Procedure Name Priority Date/Time Associated Diagnosis [...] bone density assessment. Study was performed on [employer]. Bone Density: Region BMD T-score Z-score AP [...] PA-C, CCD on 04/03/2021 12:57:00 PM. us Daly Nava MD SPECIAL IMAGING STUDIES Fi nal Result from Last 3 Months or Most Recently Relevant to Health Maintenance Insurance MEDICARE on file MEDICARE SUPPLEMENT Care Teams Area Forester Relationship Specialty Start Date End Date Faviola Mcarthur MD PCP - General Family Medicine 04/10/17 Radha Novak MD Consulting Physician Female Pelvic Med & Reconstructive Surgery 05/19/17
--- OUTSIDE RECORDS SUMMARY | 2025-05-29 13:25 | XMS_ITS | Encounter Summary ---
Author Organization [place] [address] Care Team Providers Care Loom Fixer Name Role Phone Faviola Mcarthur MD Primary Care Provider [phone] Encounter Details Date Type Department Care Team (Late st Contact Info) Description 10/03/2014 Orders Only [facility] Arr[facility] Ctr Edg [address] [facility] [address] [place] [address] Deonte Augustin MD [address] [place] [address] Social History Tobacco Use Types Packs/Day Years [...] as of this encounter Functional Status * Is the person deaf or does he/she have serious difficulty hearing? Answer Date of Assessment Author No 09/12/2014 12:00 PM Jose Wiseman RN * Is the person blind or does he/she have serious difficulty seeing even when wearing glasses? Answer Date of Assessment Author No 09/12/2014 12:00 PM Jose Wiseman RN * Does this person have serious difficulty walking or climbing stairs? Answer Date of Assessment Author No 09/12/2014 12:00 PM Jose Wiseman RN * Does this person have difficulty dressing or bathing? Answer Date of Assessment Author No 09/12/2014 12:00 PM Jose Wiseamn RN * Because of a physical, mental or emotional condition, does this person have difficulty doing errands alone such as visiting a doctor's office or shopping? Answer Date of Assessment Author No 09/12/2014 12:00 PM Jose Wiseman RN documented as of this encounter Mental Status * Because of a physical, mental or emotional condition, does this person have serious difficulty concentrating, remembering or making decisions? Answer Entry Date Author No 09/12/2014 12:00 PM Jose Wiseman RN documented in this encounter Plan of Treatment Not on file documented as of this encounter Procedures Procedure Name Priority Date/Time Associated Diagnosis Comments PACEART REPORT Routine 10/03/2014 9:23 PM EST documented in this encounter Results * PACEART REPORT (10/03/2014 9:23 PM EST) 10/03/2014 9:23 PM EST us Deonte Augustin MD [facility] CARDIAC CATH ORDERAB LES Final Result Performing Organization Address City/State/[facility] Co de Phone Number [facility] [address] [place] [address] documented in this encounter Visit Diagnoses Not on filedocumented in this encounter Care Teams Loom Fixer Relationship Specialty Start Date End Date Faviola Mcarthur MD PCP - General Family Medicine 01/05/13 documented as of this encounter
--- OUTSIDE RECORDS SUMMARY | 2025-05-29 13:28 | XMS_ITS | Encounter Summary ---
Author Organization The [facility] Address [address] [place] [address] Care Team Providers Care Neurological Physiotherapist Name Role Phone Faviola Mcarthur MD Primary Care Provider [phone] Provider, Generic External Data Unavailable Unavailable Akil Desai MD Unavailable [phone] Nerissa Gonzalez DO Primary Care Provider [phone] Encounter Details Date Type Department Care Team (Latest Contact Info) Description 09/07/2017 Orders Only Laboratory [address], [place] [address] Edwin Catherine MD [address] [place] [address] Pure hypercholesterolemia (Primary Dx) Social History Tobacco Use Types [...] 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 Not on file N ot on file documented as of this encounter Plan of Treatment Upcoming Encounters Date Type Department Care Team (Late st Contact Info) Description 10/20/2025 7:40 AM EST Appointment [facility] [address] [place], [place] [id number] 10/25/2025 10:30 AM EST Appointment [facility], [place] [address], [place] [address] [place] [address] Nerissa Gonzalez DO [address] [facility] [place] [address] [place] [address] documented as of this encounter Results * LIPID PROFILE (09/07/2017 8:56 AM EST) Chol/HDL Ratio 4.0 0 - 5 [facility] XTERNAL LAB Cholesterol 162 125 - 199 mg/dL [facility] EXTERNAL LAB Comment: TOTAL CHOLESTEROL INTERPRETATION: Less than 200 mg/dL Desireable 200-239 mg/dL Borderline Greater or Equal to 240 mg/dL High LDL Calculated 92 0 - 100 mg/dL [facility] EXTERNAL [facility] Comment: LDL CHOLESTEROL INTERPRETATION: Less than 100 mg/dL Optimal 100-129 mg/dL Near optimal/above optimal 130-159 mg/dL Borderline High 160-189 mg/dL High Greater or Equal to 190 mg/dL Very High HDL 41 40 - 180 mg/dL [facility] EXTERNAL [facility] Comment: HDL CHOLESTEROL INTERPRETATION: Less than 40 mg/dL Low Greater than 60 mg/dL Desirable Triglycerides 143 0 - 150 mg/dL [facility] EXTERNAL [facility] Comment: TOTAL TRIGLYCERIDE INTERPRETATION: Less than 150 mg/dL Normal 150-199 mg/dL Borderline HIgh 200-499 mg/dL High Greater or Equal to 500 mg/dL Very High Plasma 09/07/2017 8:56 AM EST 09/07/2017 2:34 PM EST Narrative [facility] EXTER[facility] - 09/07/2017 4:21 PM EST Has the patient fasted?->Yes us Referring Nonstaff MD CHEMISTRY ORDERABLES Final Result [facility] EXTER[facility] [address] * (ABNORMAL) LIVER PROFILE (09/07/2017 8:56 AM EST) Total Bilirubin 0.7 0.2 - 1.2 mg/dL [facility] EXTERNAL LAB Bilirubin, Direct 0.3 0.0 - 0.5 mg/dL [facility] EXTERNAL LAB AST 31(H) 0 - 30 U/L [facility] EXTER NAL LAB ALT 27 0 - 40 U/L [facility] EXTER NAL LAB Alkaline Phosphatase 74 33 - 140 U/L [facility] EXTERNAL LAB Comment:The normal reference range is not applicable for patients less than 20 years old. Total Protein 7.0 6.0 - 8.0 g/dL [facility] EXTERNAL [facility] Albumin 4.2 3.5 - 5.0 g/dL [facility] EXTERNAL [facility] Globulin 2.8 2.0 - 3.7 g/dL [facility] EXTERNAL LAB Comment: Effective 09/03/16, the reference range for Globulin has been adjusted after re-evaluation of local geographic statics. Albumin/Globulin Ratio 1.5 1.0 - 2.1 [facility] EXTER[facility] Plasma 09/07/2017 8:56 AM EST 09/07/2017 2:34 PM EST us Referring Nonstaff MD CHEMISTRY ORDERABLES Final Result [facility] EXTER[facility] [address] documented in this encounter Visit Diagnoses Diagnosis Pure hypercholesterolemia- Primary Pure hypercholesterolemia documented in this encounter Additional Health Concerns Assessment Noted Time PHQ-9 Depression Total Score: 1 10/14/19 17 8:28 AM EST documented as of this encounter Care Teams Neurological Physiotherapist Relationship Specialty Start Date End Date Faviola Mcarthur MD PCP - General Family Medicine 12/23/12 10/19/24 Nerissa Gonzalez DO [address] [facility] [place] [address] PCP - General Internal Medicine 10/20/24 Provider, Generic External Data 05/22/21 Akil Desai MD [address] [facility]. [address] [place] [address] Otolaryngology 10/25/21 documented as of this encounter
[2025-05-29 13:54] LABS: Hematocrit 42.9 % (37.0-47.0); Hemoglobin 14.7 g/dL (12.2-16.2); Immature Granulocytes % 0.2 %; Mean Corpuscular HGB Conc 34.3 g/dL (31.8-35.4); Mean Corpuscular Hemoglobin 31.5 pg (27.0-31.2); Mean Corpuscular Volume 91.9 fl (81-99); Nucleated Red Blood Cells % 0 %; Platelet Count 251 K/mm3 (142-424); Red Blood Count 4.67 M/mm3 (4.20-5.40); Red Cell Distribution Width-SD 42.6 fL; White Blood Count 5.8 K/mm3 (4.8-10.8)
[2025-05-29 14:35] LABS: Alanine Aminotransferase 38 U/L (12-78); Albumin Level 4.3 g/dl (3.5-5.0); Alkaline Phosphatase 67 U/L (38-126); Anion Gap 11.1 mEq/L (5-15); Aspartate Amino Transferase 43 U/L (14-36); Bilirubin,Direct 0.2 mg/dl (0.0-0.4); Bilirubin,Indirect 0.6 mg/dL (0.0-0.9); Bilirubin,Total 0.8 mg/dl (0.2-1.3); Bilirubin,Unconjugated 0.6 mg/dL (0.0-1.1); Blood Urea Nitrogen 18 mg/dl (7-17); Calcium 9.2 mg/dl (8.4-10.2); Carbon Dioxide 30 mmol/L (22.0-30.0); Chloride 103 mmol/L (98-107); Cholesterol 119 mg/dl (140-200); Creatinine,Serum 0.80 mg/dl (0.52-1.04); Estimated Glomerular Filt Rate 69 ml/min (>60); GFR (African American) 84 ML/MIN (>60); Glucose 85 mg/dl (74-100); HDL Cholesterol 39 mg/dl (40-60); Magnesium 1.8 mg/dl (1.6-2.3); Potassium 4.1 mmoL/L (3.5-5.1); Sodium 140 mmol/L (136-145); Total Protein,Serum 6.4 g/dl (6.3-8.2); Triglycerides 157 mg/dl (30-150)
[2025-05-29 14:51] LABS: Free T4 (Free Thyroxine) 1.40 ng/dl (0.78-2.19)
[2025-05-29 15:06] LABS: Thyroid Stimulating Hormone 0.68 uIU/mL (0.465-4.68)
== END 2025-05-29 23:59 | disposition home or self-care (01) ==
PROVIDERS: PCP Internal Medicine; Visit Provider Internal Medicine
DX: E04.1 Nontoxic single thyroid nodule (principal); I10 Essential (primary) hypertension; E78.5 Hyperlipidemia, unspecified; R42 Dizziness and giddiness
CPT/HCPCS: 80048; 80061; 80076; 83735; 84439; 84443; 85025

== ENCOUNTER 2025-07-21 11:47 | Outpatient (CLI) | payer MEDICARE, OTHER, SELFPAY ==
--- OUTSIDE RECORDS SUMMARY | 2025-07-06 09:40 | XMS_ITS | Encounter Summary ---
Author Organization [facility] Address [address] [place] [address] Care Team Providers Care Setter Induction Heating Equipment Name Role Phone Provider, Generic External Data Unavailable Unavailable Akil Desai MD Unavailable [phone] Nerissa Gonzalez DO Primary Care Provider [phone] Reason for Referral * PT/OT/ST (Routine) - Authorized Specialty Diagnoses / Procedures Referred By Contac t Referred To Contact Physical Therapy Diagnoses Greater trochanteric bursitis of left hip Nerissa Gonzalez DO [address] [place] [address] Phone: tel: fax: [facility] [address] [place] [address] Phone: tel: fax: Referral ID Status Reason Start Date Expiration Date V isits Requested Visits Authorized [id number] Authorized 07/06/2025 07/06/2026 99 99 * Radiology Services (Routine) - Pending Review Specialty Diagnoses / Procedures Referred By Contac t Referred To Contact Diagnoses Greater trochanteric bursitis of left hip Procedures DIAG-LEFT HIP 1 VIEW W/WO PELVIS Nerissa Gonzalez DO [address] [facility] [place] [address] Phone: tel: fax: [facility] [place] [address] Phone: tel: Referral ID Status Reason Start Date Expiration Date V isits Requested Visits Authorized [id number] Pending Review 07/06/2025 07/06/2026 1 1 Reason for Visit * Reason Comments Hip Pain Left side. Started s ashely January. If she's standing still it doesn't hurt but if she does any type of movement it hurts. 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 Not on file N ot on file documented as of this encounter Last Filed Vital Signs Vital Sign Reading Time Taken Comments Blood Pressure 120/74 07/06/2025 9:35 AM EDT Pulse 67 07/06/2025 9:35 AM EDT Temperature 36.2 C (97.1 F) 07/06/2025 9:35 AM EDT Respiratory Rate - - Oxygen Saturation 97% 07/06/2025 9:35 AM EDT Inhaled Oxygen Concentration - - Weight 64.6 kg (142 lb 6.4 oz) 07/06/2025 9:35 A M EDT Height 161 cm (5' 3.39 ) 07/06/2025 9:35 AM EDT Body Mass Index 24.92 07/06/2025 9:35 AM EDT documented in this encounter Patient Instructions * Patient Instructions* Nerissa Gonzalez DO - 07/06/2025 9:40 AM EDT Tdap (tetanus, whooping cough booster) at the pharmacy. Xray today. Physical therapy: if this doesn't help, please let me know. [facility] [address] [facility] [place] [address] documented in this encounter Progress Notes * Nerissa Gonzalez DO - 07/06/2025 9:40 AM EDT Assessment & Plan 1. Greater trochanteric bursitis of left hip (Primary) Chronic L hip pain consistent with trochanteric bursitis based on today's exam findings. No significant improvement over the past five months. - Order x-ray to assess for any underlying arthritis or other abnormalities. - Refer to physical therapy for management of bursitis. - Advise follow-up if symptoms do not improve with physical therapy for potential referral to orthopedics - DIAG-LEFT HIP 1 VIEW W/WO PELVIS; Future - AMB REFERRAL TO PHYSICAL THERAPY 2. Hepatic steatosis She is now seeing GI-we discussed importance of HLD control. She has lost 10 lbs since 10/2024 with dietary changes. 3. Transaminitis As above. 4. Mixed hyperlipidemia As above- managed by cardiology, she is on leqvio. 5. Weight loss As above- intentional. Has appointment 10/2025- advised to get TDAP. Subjective Problem List[1] Medications Ordered Prior to Encounter[2] Past Medical History[3] Past Surgical History[4] Family History[5] Social History[6] Chief Complaint: Hip Pain (Left side. Started since January. If she's standing still it doesn't hurt but if she does any type of movement it hurts. ) History of Present Illness Gracy Ellis is a 80 year old female with high cholesterol who presents with concerns about fatty liver disease and left hip pain. She has a history of fatty liver disease and recent tests from January, but she is unsure how to interpret the results and has not yet discussed them with her hair worker. She has a history of high cholesterol, with current levels showing total cholesterol at 119 and triglycerides at 157. She manages her cholesterol with medication and lifestyle changes, including weight loss. Since October, she has lost ten pounds, which she attributes to dietary changes, such as eating more at lunch, smaller portions at dinner, and avoiding eating past 6 PM. She has a history of pacemaker implantation. She experiences pain in her hip, specifically in the bone area, which has persisted since January. The pain occurs when she moves or gets out of a chair, but not when she stands still. She describes the pain as being in a specific spot and notes that it has not improved over the past five months. Her social history includes hosting weekly lunches for her nieces and great- nieces during the summer, which she found enjoyable and fulfilling. She has a close relationship with her family, includingher children and grandchildren, who live in [place] and visit during holidays. Objective BP 120/74 (BP Site: Right arm, BP Position: Sitting, BP Cuff Size: Small adult) Pulse 67 Temp (!) 97.1 ??F (36.2 ??C) (Temporal) Ht 5' 3.39 (1.61 m) Wt 142 lb 6.4 oz (64.6 kg) SpO2 97% BMI 24.92 kg/m?? Wt Readings from Last 3 Encounters: 07/06/25 142 lb 6.4 oz (64.6 kg) 05/15/25 146 lb (66.2 kg) 10/20/24 152 lb (68.9 kg) BP Readings from Last 3 Encounters: 07/06/25 120/74 05/15/25 120/80 10/20/24 114/72 Physical Exam Constitutional: General: She is not in acute distress. Appearance: Normal appearance. She is not ill-appearing. HENT: Head: Normocephalic and atraumatic. Eyes: General: No scleral icterus. Pulmonary: Effort: Pulmonary effort is normal. No respiratory distress. Musculoskeletal: Left hip: Tenderness present. Legs: Comments: TTP along L greater trochanteric bursa. No pain with internal/external rotation of L hip.No TTP along lumbar paraspinal musculature or bilateral SI joints. Neurological: Mental Status: She is alert and oriented to person, place, and time. Psychiatric: Mood and Affect: Mood normal. Behavior: Behavior normal. Thought Content: Thought content normal. Judgment: Judgment normal. The patient/family provided verbal consent to the use of ambient listening technology/audio recording during this visit. I reviewed/edited the note before signing. 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 (Patient not taking: Reported on 07/06/2025) 14 Tablet 0 bisoprolol-hydrochlorothiazide (ZIAC) 2.5-6.25 mg per tablet Take 1 Tablet by mouth in the morning.3 calcium citrate/vitamin D3 (CITRACAL + D PO) Take 2 Capsules by mouth in the morning. Cholecalciferol, Vitamin D3, 50 mcg (2,000 unit) Capsule Take 1 Tablet by mouth in the morning. clopidogreL (PLAVIX) 75 mg tablet Take 75 mg by mouth daily. fish oil-omega-3 fatty acids 340-1,000 mg Capsule Take 1 Capsule by mouth daily. (Patient not taking: Reported on 07/06/2025) GLUCOSAMINE HCL/CHONDR AGUSTIN A NA (OSTEO BI-FLEX [...] in the morning. valACYclovir (VALTREX) 1 gram tablet 2 tab BID for one day only prn cold sores (Patient not taking:Reported on 07/06/2025) 8 Tablet 0 No current facility-administered medications on file prior to visit. [3] Past Medical History: Diagnosis Date Broken back 1985 Cardiac pacemaker Medtronic DVT of axillary vein, acute left (CMS/HCC) H/O colonoscopy 2013 Dr Gay- repeat q5 H/O migraine occular Hx of colonic polyps Hx of concussion 03/20 Osteopenia dexa due now Vaginal Pap smear aug 2013 Electronics Engineering Manager Vitamin D deficiency [4] Past Surgical History: Procedure Laterality Date hx dvt 09/2014 HX HYSTERECTOMY 1989 d/t fibroid HX MYOMECTOMY 1979 HX PACEMAKER PLACEMENT HX TYMPANOSTOMY TUBE PLACEMENT 2012 [5] Family History Problem Relation Name Age of Onset Heart Problems Father 57 smoker COPD Mother smoker Dementia Mother Osteoarthritis Mother Osteoarthritis Sister Osteoarthritis Maternal Grandmother Osteoarthritis Sister [6] Social History Tobacco Use Smoking status: Never Smokeless tobacco: Never Substance Use Topics Alcohol use: No Drug use: No documented in this encounter Plan of Treatment Upcoming Encounters Date Type Department Care Team (Late st Contact Info) Description 10/20/2025 7:40 AM EST Appointment [facility] Primary [address] [place], [place] [address] 10/25/2025 10:30 AM EST Appointment [facility] Primary Care, [address], [place] [address] Nerissa Gonzalez DO [facility] [place] [address] Scheduled Referrals Name Type Priority Associated Diagnoses Orde r Schedule AMB REFERRAL TO PHYSICAL THERAPY Outpatient Referral Routine Greater trochanteric bursitis of left hip Ordered: 07/06/2025 documented as of this encounter Results * DIAG-LEFT HIP 1 VIEW W/WO PELVIS (07/06/2025 10:31 AM EDT) Anatomical Region Laterality Modality Pelvis Radiographic Allyson ging 07/07/2025 4:04 PM EDT Impressions 07/07/2025 4:09 PM EDT IMPRESSION: No acute fracture or dislocation. No appreciable degenerative change left hip. Redemonstration of a chondroid lesion proximal diaphysis left femur, which appears stable and favored to reflect a benign bone tumor such as an enchondroma. Electronically signed by Huma Gannon DO Narrative 07/07/2025 4:09 PM EDT EXAM: DIAG-LEFT HIP 1 VIEW W/WO PELVIS. DATE: 07/06/2025 10:25 EDT. INDICATION: M70.62: Trochanteric bursitis, left hip COMPARISON: 08/27/2022 TECHNIQUE: Standard per department protocol. VIEWS OBTAINED: Frontal radiograph the pelvis and frog-leg view left hip. FINDINGS: No acute fracture or dislocation/subluxation. Chondroid lesion proximal diaphysis left femur measuring 5 cm in maximum craniocaudal length, which is stable when compared to the prior study from 08/27/2022. Bilateral femoroacetabular joints are maintained. No acute soft tissue abnormality. Procedure Note Huma Gannon DO - 07/07/2025 EXAM: DIAG-LEFT HIP 1 VIEW W/WO PELVIS. DATE: 07/06/2025 10:25 EDT. INDICATION: M70.62: Trochanteric bursitis, left hip COMPARISON: 08/27/2022 TECHNIQUE: Standard per department protocol. VIEWS OBTAINED: Frontal radiograph the pelvis and frog-leg view lefthip. FINDINGS: No acute fracture or dislocation/subluxation. Chondroid lesion proximaldiaphysis left femur measuring 5 cm in maximum craniocaudal length, whichis stable when compared to the prior study from 08/27/2022. Bilateralfemoroacetabular joints are maintained. No acute soft tissueabnormality. IMPRESSION: No acute fracture or dislocation. No appreciable degenerative change lefthip. Redemonstration of a chondroid lesion proximal diaphysis left femur, whichappears stable and favored to reflect a benign bone tumor such as anenchondroma. Electronically signed by Huma Gannon DO us Nerissa Gonzalez DO [facility] ORDKiley MACEDO Final Result documented in this encounter Visit Diagnoses Diagnosis Greater trochanteric bursitis of left hip- Primary Enthesopathy of hip region Hepatic steatosis Other chronic nonalcoholic liver disease Transaminitis Nonspecific elevation of levels of transaminase or lactic acid dehydrogenase (LDH) Mixed hyperlipidemia Weight loss Loss of weight Greater trochanteric bursitis of left hip Enthesopathy of hip region documented in this encounter Additional Health Concerns Assessment Noted Time PHQ-9 Depression Total Score: 1 09/22/20 23 3:29 PM EST documented as of this encounter Care Teams Setter Induction Heating Equipment Relationship Specialty Start Date End Date Nerissa Gonzalez DO [address] [facility] [place] [address] [place] [address] PCP - General Internal Medicine 10/20/24 Provider, Generic External Data 05/22/21 Akil Desai MD 1954 [facility]. [address] [place] [address] Otolaryngology 10/25/21 documented as of this encounter
--- OUTSIDE RECORDS SUMMARY | 2025-07-06 10:25 | XMS_ITS | Encounter Summary ---
Author Organization The [address] [address] Care Team Providers Care Contract Negotiator Name Role Phone Provider, Generic External Data Unavailable Unavailable Akil Desai MD Unavailable [phone] Nerissa Gonzalez DO Primary Care Provider [phone] Reason for Referral * Radiology Services (Routine) - Pending Review Specialty Diagnoses / Procedures Referred By Contac t Referred To Contact Diagnoses Greater trochanteric bursitis of left hip Procedures DIAG-LEFT HIP 1 VIEW W/WO PELVIS Nerissa Gonzalez DO [address] [employer] [place] [address] Phone: tel: fax: [address] [address] Phone: tel: Referral ID Status Reason Start Date Expiration Date V isits Requested Visits Authorized [id number] Pending Review 07/06/2025 07/06/2026 1 1 Reason for Visit * Radiology Services (Routine) - Pending Review Specialty Diagnoses / Procedures Referred By Contac t Referred To Contact Diagnoses Greater trochanteric bursitis of left hip Procedures DIAG-LEFT HIP 1 VIEW W/WO PELVIS Nerissa Gonzalez DO [address] [facility] [place] [address] Phone: tel: fax: [facility] Eric [facility] [place] [address] Phone: tel: Referral ID Status Reason Start Date Expiration Date V isits Requested Visits Authorized [id number] Pending Review 07/06/2025 07/06/2026 1 1 Encounter Details Date Type Department Care Team (Latest Contact Info) Description 07/06/2025 10:25 AM EDT - 07/06/2025 11:59 PM EDT Hospital Encounter [place] [facility] [address] [facility], [address] [place] [id number] Greater trochanteric bursitis of left hip Discharge Disposition: Home or Self Care Social [...] 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 Not on file N ot on file documented as of this encounter Medications at Time of Discharge bisoprolol-hydro chlorothiazide (ZIAC) 2.5-6.25 mg per tablet [...] Description 10/20/2025 7:40 AM EST Appointment The [facility] Physicians Primary Care, [place] [address] [place], [place] [address], [facility] [address] [place], [place] [id number] 10/25/2025 10:30 AM EST Appointment [facility], [place] [facility] [place], [place] [id number] Nerissa Gonzalez DO [address] [place] [address] documented as of this encounter Procedures Procedure Name Priority Date/Time Associated Diagnosis Comments DIAG-LEFT HIP 1 VIEW W/WO PELVIS Routine 07/06/2025 10:31 AM EDT Greater trochanteric bursitis of left hip documented in this encounter Results * DIAG-LEFT HIP 1 [...] anenchondroma. Electronically signed by Huma Gannon DO Nerissa Gonzalez DO [facility] DI[facility] ORDE RABJAVID Final Result documented in this encounter Visit Diagnoses Diagnosis Greater trochanteric bursitis of left hip Enthesopathy of hip region documented in this encounter Additional Health Concerns Assessment Noted Time PHQ-9 Depression Total Score: 1 09/22/20 23 3:29 PM EST documented as of this encounter Care Teams Contract Negotiator Relationship Specialty Start Date End Date Nerissa Gonzalez DO [address] [place] [address] PCP - General Internal Medicine 10/20/24 Provider, Generic External Data 05/22/21 Akil Desai MD [address] [facility]. [address] [place] [address] Otolaryngology 10/25/21 documented as of this encounter
[2025-07-21 11:49] VITALS: BMI 24.7
--- OUTSIDE RECORDS SUMMARY | 2025-07-21 11:50 | XMS_ITS | Encounter Summary ---
Author Organization [place] [address] Care Team Providers Care Consultant Rn Name Role Phone Faviola Mcarthur MD Primary Care Provider [phone] Encounter Details Date Type Department Care Team (Late st Contact Info) Description 09/11/2014 Orders Only [facility] [address] [facility] [address] [place] [address] Ba Freeman MD [address] [place] [address] Social History Tobacco Use Types Packs/Day Years [...] 5:03 PM EST) us Ba Freeman MD [facility] CARDIAC CATH ORDERABLE S Final Result Performing Organization Address City/State/[facility] Co de Phone Number [facility] [address] [place] [address] documented in this encounter Visit Diagnoses Not on filedocumented in this encounter Care Teams Consultant Rn Relationship Specialty Start Date End Date Faviola Mcarthur MD PCP - General Family Medicine 01/05/13 documented as of this encounter
--- OUTSIDE RECORDS SUMMARY | 2025-07-21 11:50 | XMS_ITS | Clinical Summary ---
Author Organization [facility] Address [address] [place] [address], [address] [place] [address] Care Team Providers Care Special Education Tutor Name Role Phone Faviola Mcarthur MD Primary [...] mouth daily Active Multiple Vitamins-Minera ls (THERAPEUTIC MULTIVITAMIN-[place] NERALS) tablet Take 1 tablet by mouth [...] ID:Not on file Type:Not on file Address: [address] Care Teams Special Education Tutor Relationship Specialty Start Date End Date Faviola Mcarthur MD PCP - General 09/16/19
--- OUTSIDE RECORDS SUMMARY | 2025-07-21 11:50 | XMS_ITS | Encounter Summary ---
Author Organization [place] [address] Care Team Providers Care Window Machine Operator Name Role Phone Faviola Mcarthur MD Primary Care Provider [phone] Encounter Details Date Type Department Care Team (Late st Contact Info) Description 09/11/2014 Orders Only [facility] [address] [facility] [address] [place] [address] Delaney Mathias, WAREHOUSE PRICING AND INVENTORY CLERK [address] [place] [address] Social History Tobacco Use Types Packs/Day Years [...] or making decisions? No 09/12/2014 12:00 PM Shweat Wiseman R N documented in this encounter Plan of Treatment Not on file documented as of this encounter Procedures Procedure Name Priority Date/Time Associated Diagnosis Comments ELECTROPHYSIOLOGY OR IMPLANT PROCEDURE LOG Routine 09/11/2014 3:30 PM EST documented in this encounter Results * ELECTROPHYSIOLOGY OR IMPLANT PROCEDURE LOG (09/11/2014 3:30 PM EST) 09/11/2014 3:30 PM EST us Delaney Mathias WAREHOUSE PRICING AND INVENTORY CLERK CARDIAC CATH ORDERABLES Fi nal Result Performing Organization Address City/State/[facility] Co de Phone Number [facility] [address] [place] [address] documented in this encounter Visit Diagnoses Not on filedocumented in this encounter Care Teams Window Machine Operator Relationship Specialty Start Date End Date Faviola Mcarthur MD PCP - General Family Medicine 01/05/13 documented as of this encounter
--- OUTSIDE RECORDS SUMMARY | 2025-07-21 11:50 | XMS_ITS | Encounter Summary ---
Author Organization [place] [address] Care Team Providers Care Under Trimmer Name Role Phone Faviola Mcarthur MD Primary Care Provider [phone] Encounter Details Date Type Department Care Team (Late st Contact Info) Description 10/03/2014 Orders Only [facility] Arr[facility]tr Edg [address] [facility] [address] [place] [address] Deonte Augustin MD [address] [place] [address] Social History Tobacco Use Types Packs/Day Years [...] 09/12/2014 12:00 PM Jose Wiseman RN * Because of a physical, mental [...] 9:23 PM EST us Deonte Augustin MD [facility] CARDIAC CATH ORDERAB LES Final Result Performing Organization Address City/State/[facility] Co de Phone Number [facility] [address] [place] [address] documented in this encounter Visit Diagnoses Not on filedocumented in this encounter Care Teams Under Trimmer Relationship Specialty Start Date End Date Faviola Mcarthur MD PCP - General Family Medicine 01/05/13 documented as of this encounter
[2025-07-21 11:51] VITALS: BP 131/61; PULSE 60; RESP 16; TEMP 36.6; O2SAT 100
--- OUTSIDE RECORDS SUMMARY | 2025-07-21 11:51 | XMS_ITS | Encounter Summary ---
Author Organization [facility] Address [address] [place] [address] Care Team Providers Care Cage Loader Name Role Phone Provider, Generic External Data Unavailable Unavailable Akil Desai MD Unavailable [phone] Nerissa Gonzalez DO Primary Care Provider Reason for Visit * Reason Onset Date Comments Orders Needed 10/20/2024 Labs for MPE 10/06 10/30 Encounter Details Date Type Department Care Team (Late st Contact Info) Description 10/20/2024 Telephone [facility] Physicians - Primary Care, [place] [address] 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 Not [...] 10/20/2025 7:40 AM EST Appointment The [facility] Primary Care, [address] [employer] [place] [id number] 10/25/2025 10:30 AM EST Appointment The [facility] Primary Care, [place] [address], [address] [employer], [employer] [employer] [address] Nerissa Gonzalez DO [address] [facility] [address] [place] [address] documented as of this encounter Visit Diagnoses Not on filedocumented in this encounter Additional Health Concerns Assessment Noted Time PHQ-9 Depression Total Score: 1 09/22/20 23 3:29 PM EST documented as of this encounter Care Teams Cage Loader Relationship Specialty Start Date End Date Nerissa Gonzalez DO [address] [facility] [address] [employer], [employer] [address] PCP - General Internal Medicine 10/20/24 Provider, Generic External Data 05/22/21 Akil Desai MD [address] [place] [address] Otolaryngology 10/25/21 documented as of this encounter
--- OUTSIDE RECORDS SUMMARY | 2025-07-21 11:51 | XMS_ITS | Clinical Summary ---
Author Organization [facility] Address [facility] [place] [address] Phone Care Team Providers Care Edge Trimming Machine Operator Name Role Phone Faviola Mcarthur MD Primary Care Provider [phone] Allergies Active Allergy Reactions Criticality Noted Date Comments Iodinated Contrast Media 05/29/2011 Received during a bone scan Medications magnesium oxide (MAG-OX) 400 mg tablet Take 400 mg by mouth daily. Active Vzdo-Uzvm-HZK#1 -V-Reui-Voe-Bor (OSTEO BI-FLEX) 750-625-30 mg Tab Take 1 [...] 60+ (1 - 1-dose 75+ series) 2022 DTaP/TDaP/Td (2 - Td or Tdap) 07/10/2024 07/10/2014 COVID-19 Vaccine ( season) 2025 08/17/2021, 11/30/2020, 11/01/2020 Influenza Vaccine (#1) 2025 09/09/2014 Bone Density Screening Completed , 04/03/2021, 04/03/2021, Additional history exists Hepatitis B Vaccine Aged Out No longe r eligible based on patient's age to complete this topic Meningococcal B Vaccine Aged Out No l onger eligible based on patient's age to complete this topic Medical Devices Implanted Type Area Furnace Checker Device Identifier Shelf Expiration Date Model / Serial / Lot Lead Capsurefix Mri 5086 Is-I Bi Artrial 58cm - [id number] Implanted:Qty: 1 on 09/11/2014 at [facility] [employer]:CARDIAC SURG SRVC [id number] / [id number] / Lead Capsurefix Mri 5086 Is-I Bi Artrial 52cm - [id number] Implanted:Qty: 1 on 09/11/2014 by Ba Freeman MD at [facility] [employer]:PACING SYS [id number] / [id number] / Pacemaker Advisadual Chamber Mri - [id number] Implanted:Qty: 1 on 09/11/2014 by Ba Freeman MD at [facility] [employer]:PACING SYS [id number] / [id number] / Procedures Procedure Name Priority Date/Time Associated [...] bone density assessment. Study was performed on [employer] 5. Bone Density: Region BMD T-score Z-score [...] is established. Reported by: Sierra Mahoney PA-C, [facility] on 11/14/2024 3:09:00 PM. Nerissa Gonzalez DO IMG DEXA ORDERABLES Final R esult from Last 3 Months or Most Recently Relevant to Health Maintenance Insurance [place] [address] CIG[employer] MEDICARE SUPPLEMENT [place]ARE [place] PART [place] B [place] MEDICARE SUPPLEMENT INS Advance Directives For more information, please contact: [phone] * Full Code (Latest Code Status on File) Date Activated Date Inactivated Comments 09/23/2014 8:14 AM 09/25/2014 7:44 PM Care Teams Edge Trimming Machine Operator Relationship Specialty Start Date End Date Faviola Mcarthur MD PCP - General Family Medicine 01/05/13
--- OUTSIDE RECORDS SUMMARY | 2025-07-21 11:51 | XMS_ITS | Clinical Summary ---
Author Organization [facility] Address [address] [place] [address] Care Team Providers Care Electronic Console Display Operator Name Role Phone Provider, Generic External Data Unavailable Unavailable Akil Desai MD Unavailable [phone] Nerissa Gonzalez DO Primary Care Provider Allergies [...] by Subcutaneous route every 6 months. Active valACYclovir (VALTREX) 1 gram tabletIndicati ons:Cold sore 2 tab BID for one day only prn cold sores 8 Tablet 5 Active Additional Information Patient not taking.Reported on 07/06/2025 amoxicillin (AMOXIL) 875 mg tabletIndicati ons:Acute non-recurrent maxillary sinusitis Take 1 Tablet (875 mg) by mouth 2 times daily. 14 Tablet 5 025 Discontin ued(Thera py Completed ) Active Problems Problem Noted Date Diagnosed Date Hepatic steatosis 07/06/2025 Hepatic cyst 12/21/2024 Overview (12/21/2024): US 12/2024 Mixed hyperlipidemia 06/23/2024 Primary hypertension 06/23/2024 Cardiac pacemaker in situ 06/23/2024 Overview (06/23/2024): On 10/29/2019 pacemaker was removed and revision was completed by Dr Oliver at [facility] and replaced with a [address] [employer] [address] Florin Gates Hx of pneumothorax 06/23/2024 Overview (06/23/2024): complication [...] 06/23/2024 10/20/2024 Overview (06/23/2024): Cardiology Dr. Florin Hammonds impaction 04/14/2015 10/14/2016 Chronic mycotic otitis externa, left 04/14/2015 10/14/2016 Dysfunction of eustachian tube 04/14/2015 10/14/2016 Chronic rhinitis 04/14/2015 10/14/2016 H/O migraine 10/14/2016 Overview (08/26/2013): occular DVT of axillary vein, acute left 10/20/2024 Encounters Date Type Department Care Team Description 07/20/2025 Orders Only [facility] [address], [place] [address] Provider, Historical 07/10/2025 Results Follow-Up [facility] [address], [place] [address] Nerissa Gonzalez DO DIAG-LEFT HIP 1 VIEW W/WO PELVIS 07/06/2025 10:25 AM EDT - 07/06/2025 11:59 PM EDT Hospital Encounter [facility] [address] [facility], [address] [place] [address] Greater trochanteric bursitis of left hip Discharge Disposition: Home or Self Care 07/06/2025 9:40 AM EDT Office Visit [facility] [address], [place] [address] Nerissa Gonzalez DO Greater trochanteric bursitis of left hip (Primary Dx); Hepatic steatosis; Transaminitis; Mixed hyperlipidemia; Weight loss 05/19/2025 Telephone [facility] [address], [place] [address] Nerissa Gonzalez DO Results 05/15/2025 11:47 AM EDT - 05/15/2025 11:59 PM EDT Hospital Encounter Laboratory [address], [address] [place] [address] Transaminitis Discharge Disposition: Home or Self Care 05/15/2025 11:20 AM EDT Office Visit [facility] Physicians - Primary Care, Ambrosio Castelan [address], [address] [place] [address] Jeri Hughes APRN Acute non-recurrent maxillary sinusitis (Primary Dx); Cold sore; Elevated liver enzymes; Decreased GFR 04/28/2025 9:15 AM EDT [facility] Physicians - Ear, Nose & Throat, [place] [address] [place] [address] Bilateral sensorineural hearing loss (Primary Dx) 04/24/2025 Clinical Update [facility] - Ear, Nose & Throat, [address] [place] [address] Gretchen Jasso from Last 3 Months Immunizations Immunization Administration [...] 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 file N ot on file Last Filed Vital Signs Vital Sign Reading Time Taken Comments Blood Pressure 120/74 07/06/2025 9:35 AM EDT Pulse 67 07/06/2025 9:35 AM EDT Temperature 36.2 C (97.1 F) 07/06/2025 9:35 AM EDT Respiratory Rate 16 05/15/2025 11:24 AM EDT Oxygen Saturation 97% 07/06/2025 9:35 AM EDT Inhaled Oxygen Concentration - - Weight 64.6 kg (142 lb 6.4 oz) 07/06/2025 9:35 A M EDT Height 161 cm (5' 3.39 ) 07/06/2025 9:35 AM EDT Body Mass Index 24.92 07/06/2025 9:35 AM EDT Plan of Treatment Upcoming Encounters Date Type Department Care Team (Late st Contact Info) Description 10/20/2025 7:40 AM EST Appointment [facility] Physicians - Primary Care, [address] [place] [address] [place] [address] 10/25/2025 10:30 AM EST Appointment [facility] Physicians Primary [facility], [place] [address] [address] [place] [place] [address] Nerissa Gonzalez DO [address] [facility] [place] [address] Health Maintenance Due Date Last Done Comments Cologualeola 1945 FIT 1945 Tetanus Vaccination (Every 10 Years) 07/10/2024 07/10/2014 Lipid Monitoring 10/18/2025 10/18/2024, , 07/31/2021, Additional [...] Colorectal Cancer Screening 01/24/2026 Osteoporosis Screening 11/14/2027 , 11/14/2024, 04/03/2021, Additional history exists Influenza Vaccination [...] C Virus (HCV) Screening Completed 12/19/2024, 11/18/2018 Influenza Vaccination Discontinued Zoster-RZV(Shingrix) Discontinued Procedures Procedure Name Priority Date/Time Associated Diagnosis Comments DIAG-LEFT HIP 1 VIEW W/WO PELVIS Routine 07/06/2025 10:31 AM EDT Greater trochanteric bursitis of left hip COMPREHENSIVE METABOLIC PANEL Routine 05/15/2025 11:49 AM EDT Transaminitis HEPATITIS C AB WITH REFLEX TO HCV,RNA,QUANT PCR Routine 12/19/2024 10:51 AM EDT Transaminitis Encounter for screening for other viral diseases LIPID PROFILE Routine 10/18/2024 8:24 AM EST Mixed hyperlipidemia [id number] DIAGNOSTIC Routine 08/13/2022 10:48 AM EST AJK-EGAF-RED SCAN AXIAL SKELETON Routine 04/03/2021 9:38 AM EDT EXTERNAL COLONOSCOPY - SEE COMMENT Routine 01/24/2021 from Last 3 Months or Most Recently Relevant to Health Maintenance Results * DIAG-LEFT HIP 1 VIEW W/WO [...] by Huma Gannon DO Nerissa Gonzalez DO IMG DIAGNOSTIC IMAGING ORDE RABLES Final Result * (ABNORMAL) COMPREHENSIVE METABOLIC PANEL (05/15/2025 11:49 AM EDT) Sodium 142 135 - 146 mmol/L [facility] Potassium 4.4 3.5 - 5.1 mmol/L [facility] Chloride 105 98 - 110 mmol/L [facility] CO2 30(H) 22 - 29 mmol/L [facility] Anion Gap 7 5 - 13 mmol/L [facility] Comment:Anion gap calculatio n does not include potassium (K+) value. BUN 16 7 - 25 mg/dL [facility] Creatinine 0.82 0.50 - 1.20 mg/dL [facility] Glucose 93 71 - 99 mg/dL [facility] Comment:Reference range (71- 99 mg/dL) refers only to fasting samples, and does not apply to non-fasting samples. eGFR CKD-EPI 2020 73 See Note [facility] Comment: eGFR calculated with 2020 CKD-EPI equation using creatinine, patient's age and gender. Other factors, especially muscle mass, may affect accuracy and need to be considered. Patient values should be interpreted as a trend. The reference interval is >60 mL/min/1.73m2. Calcium 9.7 8.5 - 10.5 mg/dL [facility] Total Bilirubin 1.0 0.2 - 1.2 mg/dL [facility] AST 42(H) 0 - 30 U/L [facility] ALT 42(H) 0 - 40 U/L [facility] Alkaline Phosphatase 86 33 - 140 U/L [facility] Total Protein 6.7 6.0 - 8.0 g/dL [facility] Albumin 4.3 3.5 - 5.0 g/dL [facility] Globulin 2.4 2.0 - 3.7 g/dL [facility] Albumin/Globulin Ratio 1.8 1.0 - 2.1 [facility] BUN/Creatinine Ratio 20 [facility] Serum (Serum) 05/15/2025 11: 49 AM EDT 05/15/2025 6:07 PM EDT us Nerissa Gonzalez DO CHEMISTRY ORDERABLES Final Result Performing Organization Address [facility] de Phone Number [facility] [address] * HEPATITIS C AB WITH REFLEX TO HCV,RNA,QUANT PCR (12/19/2024 10:51 AM EDT) Pathologist [facility] HCV Qual Interp Nonreactive Nonreactive [facility] Comment:IgG and IgM anti-HCV not detected. Signal/Cutoff 0.10 0.00 - 0.79 S/CO [facility] Serum 12/19/2024 10:5 1 AM EDT 12/19/2024 4:40 PM EDT us Nerissa Gonzalez DO HEMATOLOGY ORDERABLES Final Result Performing Organization Address [facility] de Phone Number [facility] [address] * (ABNORMAL) LIPID PROFILE (10/18/2024 8:24 AM EST) Cholesterol 107(L) 125 - 199 mg/dL [facility] Comment: TOTAL CHOLESTEROL INTERPRETATION: Less than 200 mg/dL Desireable 200-239 mg/dL Borderline Greater or Equal to 240 mg/dL High LDL Calculated 35 0 - 100 mg/dL [facility] Comment: LDL CHOLESTEROL INTERPRETATION: Less than 100 mg/dL Optimal 100-129 mg/dL Near optimal/above optimal 130-159 mg/dL Borderline High 160-189 mg/dL High Greater or Equal to 190 mg/dL Very High HDL 35(L) 40 - 180 mg/dL [facility] Comment: HDL CHOLESTEROL INTERPRETATION: Less than 40 mg/dL Low Greater than 60 mg/dL Desirable Triglycerides 183(H) 0 - 149 mg/dL [facility] Comment: TOTAL TRIGLYCERIDE INTERPRETATION: Less than 150 mg/dL Normal 150-199 mg/dL Borderline HIgh 200-499 mg/dL High Greater or Equal to 500 mg/dL Very High NONHDL Calculated 72 0 - 129 mg/dL [facility] Comment: NON-HDL INTERPRETATION: Less than 130 mg/dL Desirable 130-159 mg/dL Above Desirable 160-189 mg/dL Borderline High 190-219 mg/dL High Greater than or equal to 220 mg/dL Very High Serum (Serum) 10/18/2024 8:2 4 AM EST 10/18/2024 4:41 PM EST Narrative [facility] - 10/18/2024 5:02 PM EST Has the patient fasted?->Yes us Radha Verduzco DO CHEMISTRY ORDERABLES Final Result [facility] [address] * [id number] DIAGNOSTIC (08/13/2022 10:48 AM EST) 08/13/2022 10:[address] [facility] - 08/13/2022 10:57 AM EST Procedure:MM MAMMO DIGITAL NIMESH DIAGN RIGHT Reason for exam: addl evaluation requested from abnormal screening. R92.8-Other abnormal and inconclusive findings on diagnostic imaging of [id number] MM MAMMO DIGITAL NIMESH DIAGN RIGHT CC and MLO view(s) were taken of the right breast. There are scattered fibroglandular densities. Prior study comparison: Compared with prior studies the most recent being 07/04/22, 04/12/21 Additional views are normal. No evidence of mass or distortion. The screening finding was a summation artifact. IMPRESSION: Negative ([id number]) RECOMMENDATION: Routine screening mammogram in 1 year. [...] the next mammogram, in accordance with the [employer] and the Society of Breast Imaging recommendations. Procedure Note Provider, Gloria - 08/13/2022 Procedure:MM MAMMO DIGITAL NIMESH DIAGN RIGHT Reason for exam: addl evaluation requested from abnormal screening. R92.8-Other abnormal and inconclusive findings on diagnostic imaging of [id number]-[id number]-CM MM MAMMO DIGITAL NIMESH DIAGN RIGHT CC and MLO view(s) were taken of the right breast. There are scattered fibroglandular densities. Prior study comparison: Compared with prior studies the most recentbeing 07/04/22, 04/12/21 Additional views are normal. No evidence of mass or distortion. The screening finding was a summation artifact. IMPRESSION: Negative ([id number]) RECOMMENDATION: Routine screening mammogram in 1 year. [...] the next mammogram, in accordance with the [employer] and the Society of Breast Imaging recommendations. us Faviola Mcarthur MD [facility] IMG RESULTS ONLY Fi nal Result [facility] * [id number] SCAN AXIAL SKELETON (04/03/2021 9:38 AM EDT) [...] on 04/03/2021 12:57:00 PM. Procedure Note Provider, [facility] - 04/03/2021 Indication: The patient is a female age 65 or older who requires a bone density assessment. Study was performed on [employer] 5. Bone Density: Region BMD T-score [...] Allen PA-C, CCD on 04/03/2021 12:57:00 PM. External Provider [facility] IMG RESULTS ONLY Final Result [facility] * EXTERNAL COLONOSCOPY - SEE COMMENT (01/24/2021) Historical Provider CT IMAGING Final Result from Last 3 Months or Most Recently Relevant to Health Maintenance Insurance MEDICARE [facility] Address: [place] [address] [address] [place] [id number] MEDICARE Care Teams Electronic Console Display Operator Relationship Specialty Start Date End Date Nerissa Gonzalez DO [address] [facility] [place] [address] [place] [address] PCP - General Internal Medicine 10/20/24 Provider, Generic External Data 05/22/21 Akil Desai MD [address] [facility] [place] [address] Otolaryngology 10/25/21
--- OUTSIDE RECORDS SUMMARY | 2025-07-21 11:51 | XMS_ITS | Encounter Summary ---
Author Organization [facility] Address [address] [place] [address] Care Team Providers Care Personal Clothing Laundry Aide Name Role Phone Provider, Generic External Data Unavailable Unavailable Akil Desai MD Unavailable [phone] Enoch Gonzalez DO Primary Care Provider Reason for Visit * Reason Onset Date Comments Results 05/19/2025 Encounter Details Date Type Department Care Team (Late st Contact Info) Description 05/19/2025 Telephone [facility] Physicians - Primary Care, [place] [address] [facility] [place] [address] Enoch Gonzalez DO 1954 [facility] [place] [address] Results Social History Tobacco Use Types Packs/Day [...] 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 [address] [place] [address] 10/25/2025 10:30 AM EST Appointment [facility] Primary [facility] [address] [place] [address] Enoch Gonzalez DO [address] [facility] [place] [address] Scheduled Orders Name Type Priority Associated Diagnoses [...] documented as of this encounter Care Teams Personal Clothing Laundry Aide Relationship Specialty Start Date End Date Enoch Gonzalez DO [address] [facility] [place] [address] [place] [address] PCP - General Internal Medicine 10/20/24 Provider, Generic External Data 05/22/21 Akil Desai MD [address] [facility] [place] [address] Otolaryngology 10/25/21 documented as of this encounter
--- OUTSIDE RECORDS SUMMARY | 2025-07-21 11:51 | XMS_ITS | Clinical Summary ---
Author Organization [facility] Address [address] [place] [address] Care Team Providers Care Structural Engineering Project Manager Name Role Phone Faviola Mcarthur MD Primary Care Provider Unavailab Radha Hillman MD Unavailable [phone] Allergies Active Allergy Reactions Criticality Noted [...] ) (1 - 1-dose 75+ series) 2022 DTap,Tdap,and Td (2 - Td or Tdap) 07/10/2024 07/10/2014 COVID-19 Vaccine (2024-2 6 season) 2025 08/17/2021, 11/30/2020, 11/01/2020 Influenza Vaccine (#1) 2025 09/09/2014 DEXA Scan [...] bone density assessment. Study was performed on [employer]. Bone Density: Region BMD T-score Z-score AP [...] MEDICARE on file MEDICARE SUPPLEMENT Care Teams Structural Engineering Project Manager Relationship Specialty Start Date End Date Faviola Mcarthur MD PCP - General Family Medicine 04/10/17 Radha Novak MD Consulting Physician Female Pelvic Med & Reconstructive Surgery 05/19/17
--- OUTSIDE RECORDS SUMMARY | 2025-07-21 11:53 | XMS_ITS | Encounter Summary ---
Author Organization The [facility] Address [address] [place] [address] Care Team Providers Care Assembling Machine Operator Name Role Phone Faviola Mcarthur MD Primary Care Provider [phone] Provider, Generic External Data Unavailable Unavailable Akil Desai MD Unavailable [phone] Nerissa Gonzalez DO Primary Care Provider Encounter Details Date Type Department Care Team (Latest Contact Info) Description 09/07/2017 Orders Only Laboratory [address], [place] [address] Edwin Catherine MD [address] [place] [address] Pure hypercholesterolemia (Primary Dx) Social [...] 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0 0 - 5 TC E XTERNAL LAB Cholesterol 162 125 - 199 mg/dL [facility] Comment: TOTAL CHOLESTEROL INTERPRETATION: Less than 200 mg/dL Desireable 200-239 mg/dL Borderline Greater or Equal to 240 mg/dL High LDL Calculated 92 0 - 100 mg/dL [facility] Comment: LDL CHOLESTEROL INTERPRETATION: Less than 100 mg/dL Optimal 100-129 mg/dL Near optimal/above optimal 130-159 mg/dL Borderline High 160-189 mg/dL High Greater or Equal to 190 mg/dL Very High HDL 41 40 - 180 mg/dL [facility] Comment: HDL CHOLESTEROL INTERPRETATION: Less than 40 mg/dL Low Greater than 60 mg/dL Desirable Triglycerides 143 0 - 150 mg/dL [facility] Comment: TOTAL TRIGLYCERIDE INTERPRETATION: Less than 150 mg/dL Normal 150-199 mg/dL Borderline HIgh 200-499 mg/dL High Greater or Equal to 500 mg/dL Very High Plasma 09/07/2017 8:56 AM EST 09/07/2017 2:34 PM EST Narrative [facility] - 09/07/2017 4:21 PM EST Has the patient fasted?->Yes us Referring Nonstaff MD CHEMISTRY ORDERABLES Final Result [facility] [address] * (ABNORMAL) LIVER PROFILE (09/07/2017 8:56 [...] statics. Albumin/Globulin Ratio 1.5 1.0 - 2.1 [facility] Plasma 09/07/2017 8:56 AM EST 09/07/2017 2:34 PM EST us Referring Nonstaff MD CHEMISTRY ORDERABLES Final Result [facility] [address] documented in this encounter Visit Diagnoses Diagnosis Pure hypercholesterolemia- Primary Pure hypercholesterolemia documented in this encounter Additional Health Concerns Assessment Noted Time PHQ-9 Depression Total Score: 1 10/14/19 17 8:28 AM EST documented as of this encounter Care Teams Assembling Machine Operator Relationship Specialty Start Date End Date Faviola Mcarthur MD PCP - General Family Medicine 12/23/12 10/19/24 Nerissa Gonzalez DO [address] [facility] [place] [address] PCP - General Internal Medicine 10/20/24 Provider, Generic External Data 05/22/21 Akil Desai MD [address] [facility] [place] [address] Otolaryngology 10/25/21 documented as of this encounter
--- OUTSIDE RECORDS SUMMARY | 2025-07-21 11:53 | XMS_ITS | Encounter Summary ---
Author Organization [facility] Address [address] [place] [address] Care Team Providers Care Multiple Knife Edge Trimmer Operator Name Role Phone Provider, Generic External Data Unavailable Unavailable Akil Desai MD Unavailable [phone] Nerissa Gonzalez DO Primary Care Provider Encounter Details Date Type Department Care Team (Late st Contact Info) Description 07/10/2025 Results Follow-Up [facility] Phys[facility] - Primary Care, [place] [address] [place] [address] [place] [phone] Nerissa Gonzalez DO [address] [facility] [place] [address] DIAG-LEFT HIP 1 VIEW W/WO PELVIS Social History Tobacco Use Types Packs/Day Years [...] 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 file N ot on file documented as of this encounter Plan of Treatment Upcoming Encounters Date Type Department Care Team (Late st Contact Info) Description 10/20/2025 7:40 AM EST Appointment [facility] - Primary Care, [place] [address], [address] [place] [id number] 10/25/2025 10:30 AM EST Appointment [facility] - Primary Care, [place] [address], [address] [place] [id number] Nerissa Gonzalez DO [address] [facility] [place] [address] documented as of this encounter Visit Diagnoses Not on filedocumented in this encounter Additional Health Concerns Assessment Noted Time PHQ-9 Depression Total Score: 1 09/22/20 23 3:29 PM EST documented as of this encounter Care Teams Multiple Knife Edge Trimmer Operator Relationship Specialty Start Date End Date Nerissa Gonzalez DO [address] [facility] [address] [place] [id number] PCP - General Internal Medicine 10/20/24 Provider, Generic External Data 05/22/21 Akil Desai MD [address] [facility] [address] [place] [id number] Otolaryngology 10/25/21 documented as of this encounter
--- OUTSIDE RECORDS SUMMARY | 2025-07-21 11:53 | XMS_ITS | Encounter Summary ---
Author Organization [facility] Address [address] [place] [address] Care Team Providers Care Environmental Field Technician Name Role Phone Provider, Generic External Data Unavailable Unavailable Akil Desai MD Unavailable [phone] Nerissa Gonzalez DO Primary Care Provider [phone] Encounter Details Date Type Department Care Team (Late st Contact Info) Description 07/20/2025 Orders Only [facility] Primary Care [place] [address] [place] [address] Provider, Historical Social History Tobacco Use Types Packs/Day Years [...] 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 N ot on file documented as of this encounter Plan of Treatment Upcoming Encounters Date Type Department Care Team (Late st Contact Info) Description 10/20/2025 7:40 AM EST Appointment [facility] - Primary Care [place] [address] [place] [address] 10/25/2025 10:30 AM EST Appointment [facility] - Primary Care, [place] [address] [facility], [address] [place], [place] [phone] Nerissa Gonzalez DO [address] [facility] [address] [facility] [place] [address] documented as of this encounter Procedures Procedure Name Priority Date/Time Associated Diagnosis Comments FERRITIN Routine 01/04/2025 3:09 PM EDT documented in this encounter Results * FERRITIN (01/04/2025 3:09 PM EDT) Plasma us Historical Provider CHEMISTRY ORDERABLES Final R esult documented in this encounter Visit Diagnoses Not on filedocumented in this encounter Additional Health Concerns Assessment Noted Time PHQ-9 Depression Total Score: 1 09/22/20 23 3:29 PM EST documented as of this encounter Care Teams Environmental Field Technician Relationship Specialty Start Date End Date Nerissa Gonzalez DO [address] [facility] [place] [address] [place] [address] PCP - General Internal Medicine 10/20/24 Provider, Generic External Data 05/22/21 Akil Desai MD [address] [facility] [place] [address] Otolaryngology 10/25/21 documented as of this encounter
[2025-07-21] MEDS: INCLISIRAN SODIUM 284 MG/1.5 ML SYRINGE SUBCUT (12:01)
[2025-07-21 12:07] VITALS: BP 128/62; PULSE 62; RESP 16; TEMP 36.4; O2SAT 98
== END 2025-07-21 12:10 | disposition home or self-care (01) ==
LOC: INF 11:49
PROVIDERS: PCP Internal Medicine; Visit Provider Internal Medicine
DX: Z01.89 Encounter for other specified special examinations (principal)
CPT/HCPCS: 96372; J1306

== ENCOUNTER 2025-08-21 09:07 | Outpatient (CLI) | payer MEDICARE, OTHER, SELFPAY ==
[2025-08-21 11:05] LABS: Alanine Aminotransferase 43 U/L (12-78); Albumin Level 4.1 g/dl (3.5-5.0); Albumin/Globulin Ratio 1.8 (1.1-1.8); Alkaline Phosphatase 78 U/L (38-126); Anion Gap 9.1 mEq/L (5-15); Aspartate Amino Transferase 48 U/L (14-36); Bilirubin,Total 0.6 mg/dl (0.2-1.3); Blood Urea Nitrogen 14 mg/dl (7-17); Calcium 9.6 mg/dl (8.4-10.2); Carbon Dioxide 31 mmol/L (22.0-30.0); Chloride 102 mmol/L (98-107); Creatinine,Serum 0.90 mg/dl (0.52-1.04); Estimated Glomerular Filt Rate 61 ml/min (>60); GFR (African American) 73 ML/MIN (>60); Globulin 2.3 g/dL (1.3-3.2); Glucose 97 mg/dl (74-100); Potassium 4.1 mmoL/L (3.5-5.1); Sodium 138 mmol/L (136-145); Total Protein,Serum 6.4 g/dl (6.3-8.2)
[2025-08-23 05:19] LABS: ALT (SGPT) P5P 37 IU/L (0-40); AST (SGOT) P5P 41 IU/L (0-40); Alpha 2-Macroglobulins, Qn 189 mg/dL (110-276); Bilirubin, Total 0.3 mg/dL (0.0-1.2); Cholesterol, Total 109 mg/dL (100-199); GGT 19 IU/L (0-60); Glucose 97 mg/dL (70-99); Triglycerides 193 mg/dL (0-149)
== END 2025-08-21 23:59 | disposition home or self-care (01) ==
LOC: LAB 09:08
PROVIDERS: PCP Internal Medicine; Visit Provider Internal Medicine Gastroenterology
DX: K76.0 Fatty (change of) liver, not elsewhere classified (principal); R74.01 Elevation of levels of liver transaminase levels
CPT/HCPCS: 36415; 80053; 82172; 82247; 82465; 82947; 82977; 83010; 83521; 84450; 84460; 84478